=== PATIENT | male | born 1960 | race Caucasian/White ===

== ENCOUNTER → 2017-05-03 | Day surgery (SDC) | payer OTHER ==
[2017-04-27 11:39] VITALS: BMI 23.0
[~2017-05-03] VITALS: Ht 157.5 cm; Wt 58.6 kg
[~2017-05-03] MED LIST: ACET-1311 PO; CARB1SOL8 OT; CHOL1CAP57 PEG; CLOTCRE TOP; CLR10 PEG; DEXT1SYP PEG; ENTE0.5T PEG; ESCI10TA17 PEG; FAMO10TA10 PEG; FLUD0.1T10 PEG; GENT0.1C2 TOP; GENT0.3S6 OPB; IMD/2 PO; LAMO150T32 PEG; LAMO25TA PEG; LEVO75TA5 PEG; MOML PO; OLAN-111 PEG; POLY335019 PO; SENN8.6T7 PEG; WHEAPOW13 PEG; [UNRECOGNIZED DRUG - CODE] PEG
[2017-05-03 13:35] VITALS: Ht 157.5 cm; Wt 58.6 kg
[2017-05-03 13:40] VITALS: BP 99/62; PULSE 58; TEMP 36.8; O2SAT 100
--- NOTE | 2017-05-03 13:54 | Progress Note ---
Progress Note Date of Service May 03, 2017. Progress Note Pt presented for a PEG tube change. Pt has a 20 Fr 2.5 cm balloon Kevyn PEG. Hospital currently out of stock. PEG is working well, will reschedule PEG change.
== END | disposition home or self-care (01) ==
LOC: C.GI 12:44
PROVIDERS: ATTEND Internal Medicine Gastroenterology
DX: Z43.1 Encounter for attention to gastrostomy (principal)

== ENCOUNTER → 2017-05-19 | Day surgery (SDC) | payer OTHER ==
[2017-05-13 11:21] VITALS: BMI 23.0
[~2017-05-19] VITALS: Ht 157.5 cm; Wt 58.6 kg
[2017-05-19 09:04] VITALS: Ht 157.5 cm; Wt 58.6 kg
--- NOTE | 2017-05-19 09:33 | Endo History and Physical ---
History & Physical Date of Service: May 19, 2017. Chief Complaint: PEG TUBE REPLACEMENT REGULAR Q 6 MONTHES Referring Physician: DR. MCKEON / Eric History of Present Illness dysphagia for G tube change Past Medical History Other Psy. Disorders, Osteoporosis, Fractures, Gastrointestinal Disorder, Anxiety, Reflux, Sleep Apnea, Other, Depression Past Surgical History Hx Cardiac Surgery: No Hx Internal Defibrillator: No Hx Pacemaker: No Hx Abdominal Surgery: Yes (PEG TUBE INSERTION 2013 WITH EXCHANGE) Hx of Implantable Prosthesis: No Hx Post-Op Nausea and Vomiting: No Hx Cancer Surgery: No Hx Thoracic Surgery: No Hx Orthopedic: Yes (LEFT ELBOW PIN; ORIF LEFT FEMUR) Hx Urinary Tract Surgery: No Family History None Social History Smoking Status: Unknown if Ever Smoked Hx Substance Use: No Hx Alcohol Use: No Allergies Coded Allergies: No Known Allergies (Verified , 05/03/17) Current Medications Reported Home Medications Medications Dose Route/Sig Max Daily Dose Days Date Category Dose Instructions Miralax (Polyethylene Glycol 3350) 1 Pow Pow 17 Gm PO DAILY PRN 04/27/17 Reported Robitussin Peak Cold Dm (Dextromethorphan-Guaifenesin) 1 Syp Syp 10 Ml PEG UD 04/27/17 Reported Imodium (Loperamide HCl) 2 Mg Cap 2 Mg PO UD 04/27/17 Reported Tylenol (Acetaminophen) 325 Mg Tab 650 Mg PO QID PRN 04/27/17 Reported Milk Of Magnesia (Magnesium Hydroxide) 30 Ml Susp 30 Ml PO UD 04/27/17 Reported Gentamicin 0.3% Oph (Gentamicin Sulfate (Ophth)) 0.3 % Vivi 1 Drop OPB UD 04/27/17 Reported Lotrisone (Clotrimazole W/ Betamethasone) 1 Cre Cre 1 Appln TOP AMPM 04/27/17 Reported Gentamicin Sulfate (Gentamicin Sulfate (Topical)) 0.1 % Cre 1 Appln TOP QAM 02/25/16 Reported Claritin (Loratadine) 10 Mg Tab 10 Mg PEG QAM 02/25/16 Reported Lamictal (Lamotrigine) 150 Mg Tab 150 Mg PEG HS 02/25/16 Reported Benefiber (Wheat Dextrin) 1 Pow Pow 2 Tsp PEG BID 02/25/16 Reported Levothyroxine Sodium 75 Mcg Tab 1 Tab PEG QAM 90 02/25/16 Reported Lamictal (Lamotrigine) 25 Mg Tab 50 Mg PEG QAM 01/27/16 Reported Pepcid Ac (Famotidine) 10 Mg Tab 10 Mg PEG BID 01/27/16 Reported Osmolite 1.2 Jamie (Nutritional Supplements) 1 Liq Liq 1.5 Can PEG 6XD 07/22/14 Reported Vitamin D3 (Cholecalciferol) 1,000 Unit Cap 1,000 Inter.unit PEG QAM 07/22/14 Reported Zyprexa (Olanzapine) 5 Mg Tab 5 Mg PEG HS 07/22/14 Reported Senokot S (Sennosides-Docusate Sodium) 1 Tab Tab 2 Tabs PEG HS 02/18/14 Reported Florinef (Fludrocortisone Acetate) 0.1 Mg Tab 0.1 Mg PEG QAM 02/18/14 Reported CRUSH ALL MEDS. Baraclude (Entecavir) 0.5 Mg Tab 0.5 Mg PEG QAM 06/30/13 Reported TAKE THIS MEDICATION ON AN EMPTY STOMACH. Lexapro (Escitalopram Oxalate) 10 Mg Tab 10 Mg PEG QAM 02/16/09 Reported CRUSH ALL MEDS Vital Signs Weight (Kilograms): 58.64 Height (Feet): 5 Height (Inches): 2 Date Time Temp Pulse Resp B/P (MAP) Pulse Ox O2 Delivery O2 Flow Rate FiO2 05/19/17 09:06 36.9 58 20 94/59 (71) 100 Room Air Physical Exam General Appearance: no apparent distress Respiratory/Chest: Auscultation: breath sounds normal Cardiovascular: Heart Auscultation: RRR Abdomen: Inspection & Palpation: soft Liver: non-tender Assessment and Plan stable for G tube change
[2017-05-19 09:51] VITALS: BP 102/73; PULSE 58; TEMP 36.8; O2SAT 99
--- NOTE | 2017-05-19 09:52 | Discharge Instructions ---
Endoscopy Patient Instructions Date / Procedure(s) Performed May 19, 2017. Other Allergy Information Coded Allergies: No Known Allergies (Verified , 05/03/17) Discharge Date / Findings May 19, 2017. Successful G tube change Medication Instructions Stopped Medication(s): AM MEDS AT 615 Provider Instructions Activity Restrictions - No exercising or heavy lifting for 24 hours. - Do not drink alcohol the day of the procedure. - Do not drive a car or operate machinery until the day after the procedure. - Do not make any important decisions or sign important papers in 24 hours after the procedure. Following Day: - Return to full activity which may include returning to work/school. Diet Start your diet with liquids and light foods (jello, soup, juice, toast). Then eat your usual diet if not nauseated. Treatment For Common After Affects For mild abdominal pain, bloating, or excessive gas: - Rest - Eat lightly - Lie on right side Follow-Up Information Follow-up with DR. GOMEZ as scheduled Anesthesia Information What You Should Know You have had a procedure that required some medicine to reduce anxiety and discomfort. This treatment is called moderate sedation. After receiving the treatment, you may be sleepy, but you will be able to breathe on your own. The effects of the treatment may last for several hours. Follow these instructions along with Activity/Diet recommendations noted above: * Do NOT do anything where dizziness or clumsiness would be dangerous. * Rest quietly at home today, then you can be up and about tomorrow. * Have a responsible person stay with you the rest of today. * You may have had an I.V. today. If so, you may take the dressing off later today. Recommendations Call your doctor if: * Trouble breathing * Continuous vomiting for more than 24 hours * Temperature above 101 degrees * Severe abdominal pain or bloating * Pain not relieved by pain medicine ordered * There is increased drainage or redness from any incision * A large amount of rectal bleeding greater than 2-3 tablespoons. (If you had a polyp/s removed or have hemorrhoids, a small amount of blood - from the rectum is to be expected.) * You have any unanswered questions or concerns. IN THE EVENT OF A SERIOUS EMERGENCY, GO TO THE NEAREST EMERGENCY ROOM Your discharge instructions were prepared by provider Guido Carrasco. Patient Instructions Signature Page Pedro Taylor Patient (or Guardian) Signature/Date: I have read and understand the instructions given to me by my caregivers. Caregiver/RN/Doctor Signature/Date: The above-named patient and/or guardian has received patient instructions on this date. + Original Patient Signature Page (only) stays with chart. Please make copy for patient.
--- NOTE | 2017-05-19 10:03 | GI REPORT ---
Procedure Date: 05/19/2017 9:58 AM Procedure: Non-endoscopic Tube Procedure Indications: Routine exchange PEG tube Medicines: None Complications: No immediate complications. Estimated Blood Loss: Estimated blood loss: none. Procedure: Pre-Anesthesia Assessment: - Prior to the procedure, a History and Physical was performed, and patient medications, allergies and sensitivities were reviewed. The patient's tolerance of previous anesthesia was reviewed. - The risks and benefits of the procedure and the sedation options and risks were discussed with the patient. All questions were answered and informed consent was obtained. - Patient identification and proposed procedure were verified prior to the procedure by the physician and the nurse. The procedure was verified in the pre-procedure area. - Pre-procedure physical examination revealed no contraindications to sedation. - After reviewing the risks and benefits, the patient was deemed in satisfactory condition to undergo the procedure. After obtaining informed consent, the site was prepped and the procedure was performed. The procedure was accomplished without difficulty. The patient tolerated the procedure well. Findings: Upon external examination, normal-appearing skin was found surrounding the stomal opening. The gastrostomy tube was patent. The gastrostomy tube had been in place for an extended length of time and required removal. The existing PEG site was cleaned. The existing PEG balloon was deflated and by using traction, removal was easily accomplished. A 20 Fr MARIEL-HODGES low-profile gastrostomy tube was lubricated and placed into the existing gastrostomy port. A total of 5 mL saline was used to distend the balloon that was previously tested. When positioned, the skin marking was noted to be 2.5 cm at the external bumper. The final tension and compression of the abdominal wall by the gastrostomy tube and external bumper were checked and revealed that the bumper was loose and lightly touching the skin. Placement into the stomach was confirmed with flushing, aspiration and auscultation. The tube was capped, and the tube site was cleaned and dressed. Impression: - The gastrostomy tube had been in place for an extended length of time and was removed and replaced with a 20 Fr / 2.5 cm MARIEL-HODGES low-profile gastrostomy tube. - No specimens collected. Recommendation: - Repeat the tube procedure in 6 months to exchange the enteral tube. - Discharge patient to home. Guido Carrasco M.D. Guido Carrasco MD 05/19/2017 10:03:31 AM This report has been signed electronically. Note Initiated On: 05/19/2017 9:58 AM I attest to the content of the Intraoperative Record and orders documented therein, exceptions below
== END | disposition home or self-care (01) ==
LOC: C.GI 08:40
PROVIDERS: ATTEND Internal Medicine Gastroenterology
DX: R13.10 Dysphagia, unspecified (principal); M81.0 Age-related osteoporosis without current pathological fracture; K21.9 Gastro-esophageal reflux disease without esophagitis; G47.30 Sleep apnea, unspecified; F32.9 Major depressive disorder, single episode, unspecified

== ENCOUNTER → 2017-11-30 | Day surgery (SDC) | payer OTHER ==
[2017-11-23 14:03] VITALS: BMI 24.0
[~2017-11-30] VITALS: Ht 157.5 cm; Wt 61.4 kg
[~2017-11-30] MED LIST changes: -ACET-1311 PO; +BISA10SU7 PR; -FAMO10TA10 PEG; +FAMO10TA16 PEG; +LAMO150T PEG; -LAMO150T32 PEG; -MOML PO
[2017-11-30 11:34] VITALS: Ht 157.5 cm; Wt 61.4 kg
--- NOTE | 2017-11-30 11:58 | Endo History and Physical ---
History & Physical Date of Service: Nov 30, 2017. Chief Complaint: Dysphagia Referring Physician: History of Present Illness PEG tube Past Medical History Other Psy. Disorders, Osteoporosis, Fractures, Gastrointestinal Disorder, Anxiety, Reflux, Sleep Apnea, Other, Depression Past Surgical History Hx Cardiac Surgery: No Hx Internal Defibrillator: No Hx Pacemaker: No Hx Abdominal Surgery: Yes (PEG TUBE INSERTION 2013 WITH EXCHANGE) Hx of Implantable Prosthesis: No Hx Post-Op Nausea and Vomiting: No Hx Cancer Surgery: No Hx Thoracic Surgery: No Hx Orthopedic: Yes (LEFT ELBOW PIN; ORIF LEFT FEMUR) Hx Urinary Tract Surgery: No Family History None Social History Smoking Status: Unknown if Ever Smoked Hx Substance Use: No Hx Alcohol Use: No Allergies Coded Allergies: No Known Allergies (Verified , 11/30/17) Current Medications Reported Home Medications Medications Dose Route/Sig Max Daily Dose Days Date Category Dose Instructions Bisac-Evac (Bisacodyl) 10 Mg Sup 1 Dose MT DIRECTED PRN 11/23/17 Reported Debrox (Carbamide Peroxide (Otic)) 6.5 % Vivi 1 Dose OT DIRECTED PRN 11/23/17 Reported Baraclude (Entecavir) 0.5 Mg Tab 1 Tab PEG QAM 11/23/17 Reported Miralax (Polyethylene Glycol 3350) 1 Pow Pow 17 Gm PO DAILY PRN 04/27/17 Reported Robitussin Peak Cold Dm (Dextromethorphan-Guaifenesin) 1 Syp Syp 10 Ml PEG UD 04/27/17 Reported Imodium (Loperamide HCl) 2 Mg Cap 2 Mg PO UD 04/27/17 Reported Gentamicin 0.3% Oph (Gentamicin Sulfate (Ophth)) 0.3 % Vivi 1 Drop OPB UD PRN 04/27/17 Reported Lotrisone (Clotrimazole W/ Betamethasone) 1 Cre Cre 1 Appln TOP AMPM PRN 04/27/17 Reported Gentamicin Sulfate (Gentamicin Sulfate (Topical)) 0.1 % Cre 1 Appln TOP QAM PRN 02/25/16 Reported Claritin (Loratadine) 10 Mg Tab 10 Mg PEG QAM 02/25/16 Reported Lamictal (Lamotrigine) 150 Mg Tab 150 Mg PEG HS 02/25/16 Reported Benefiber (Wheat Dextrin) 1 Pow Pow 1 Tsp PEG BID 02/25/16 Reported Levothyroxine Sodium 75 Mcg Tab 1 Tab PEG QAM 90 02/25/16 Reported Lamictal (Lamotrigine) 25 Mg Tab 50 Mg PEG QAM 01/27/16 Reported Pepcid Ac (Famotidine) 10 Mg Tab 10 Mg PEG BID 01/27/16 Reported Osmolite 1.2 Jamie (Nutritional Supplements) 1 Liq Liq 5 Can PEG DAILY 07/22/14 Reported FLUSH WITH 100MLS OF WATER BEFORE AND AFTER SUPPLEMENT. Vitamin D3 (Cholecalciferol) 1,000 Unit Cap 1,000 Inter.unit PEG QAM 07/22/14 Reported Zyprexa (Olanzapine) 5 Mg Tab 5 Mg PEG HS 07/22/14 Reported Senokot S (Sennosides-Docusate Sodium) 1 Tab Tab 2 Tabs PEG HS 02/18/14 Reported Florinef (Fludrocortisone Acetate) 0.1 Mg Tab 0.1 Mg PEG QAM 02/18/14 Reported CRUSH ALL MEDS. Lexapro (Escitalopram Oxalate) 10 Mg Tab 10 Mg PEG QAM 02/16/09 Reported CRUSH ALL MEDS Vital Signs Weight (Kilograms): 61.36 Height (Feet): 5 Height (Inches): 2 Physical Exam General Appearance: no apparent distress Respiratory/Chest: Auscultation: breath sounds normal Cardiovascular: Heart Auscultation: RRR Abdomen: Inspection & Palpation: soft Assessment and Plan Dysphagia - PEG tube change
--- NOTE | 2017-11-30 12:50 | Discharge Instructions ---
Endoscopy Patient Instructions Date / Procedure(s) Performed Nov 30, 2017. Other Allergy Information Coded Allergies: No Known Allergies (Verified , 11/30/17) Discharge Date / Findings Nov 30, 2017. PEG tube change - 2.5 cm 20 Fr MARIEL-lyn tube placed without difficulty Provider Instructions Activity Restrictions - No exercising or heavy lifting for 24 hours. - Do not drink alcohol the day of the procedure. - Do not drive a car or operate machinery until the day after the procedure. - Do not make any important decisions or sign important papers in 24 hours after the procedure. Following Day: - Return to full activity which may include returning to work/school. Diet Start your diet with liquids and light foods (jello, soup, juice, toast). Then eat your usual diet if not nauseated. Treatment For Common After Affects For mild abdominal pain, bloating, or excessive gas: - Rest - Eat lightly - Lie on right side Follow-Up Information Follow-up with DR. GOMEZ as scheduled Anesthesia Information What You Should Know You have had a procedure that required some medicine to reduce anxiety and discomfort. This treatment is called moderate sedation. After receiving the treatment, you may be sleepy, but you will be able to breathe on your own. The effects of the treatment may last for several hours. Follow these instructions along with Activity/Diet recommendations noted above: * Do NOT do anything where dizziness or clumsiness would be dangerous. * Rest quietly at home today, then you can be up and about tomorrow. * Have a responsible person stay with you the rest of today. * You may have had an I.V. today. If so, you may take the dressing off later today. Recommendations Call your doctor if: * Trouble breathing * Continuous vomiting for more than 24 hours * Temperature above 101 degrees * Severe abdominal pain or bloating * Pain not relieved by pain medicine ordered * There is increased drainage or redness from any incision * A large amount of rectal bleeding greater than 2-3 tablespoons. (If you had a polyp/s removed or have hemorrhoids, a small amount of blood - from the rectum is to be expected.) * You have any unanswered questions or concerns. IN THE EVENT OF A SERIOUS EMERGENCY, GO TO THE NEAREST EMERGENCY ROOM Your discharge instructions were prepared by provider Logan Robbins. Patient Instructions Signature Page Pedro Taylor Patient (or Guardian) Signature/Date: I have read and understand the instructions given to me by my caregivers. Caregiver/RN/Doctor Signature/Date: The above-named patient and/or guardian has received patient instructions on this date. + Original Patient Signature Page (only) stays with chart. Please make copy for patient.
[2017-11-30 13:05] VITALS: BP 98/79; PULSE 62; O2SAT 98
--- NOTE | 2017-12-01 11:32 | GI REPORT ---
Patient Name: Pedro Taylor Procedure Date: 11/30/2017 1:56 PM Date of : 1960 Admit Type: Outpatient Age: 57 Gender: Male Attending MD: Logan Reyes MD Procedure: Non-endoscopic Tube Procedure Providers: Logan Reyes MD Referring MD: Logan Reyes MD Indications: Replace PEG tube Medicines: None Complications: No immediate complications. Estimated Blood Loss: Estimated blood loss: none. Procedure: Pre-Anesthesia Assessment: - ASA Grade Assessment: III - A patient with severe systemic disease. After obtaining informed consent, the site was prepped and the procedure was performed.The procedure was accomplished without difficulty. The patient tolerated the procedure well. Findings: Upon external examination, normal-appearing skin was found surrounding the stomal opening. The existing gastrostomy site was examined and cleaned. A 20 Fr MARIEL-HODGES 2.5 cm low-profile gastrostomy tube was lubricated and placed into the existing gastrostomy port. A total of 5 mL sterile water was used to distend the balloon that was previously tested. The final tension and compression of the abdominal wall by the gastrostomy tube and external bumper were checked and revealed that the bumper was loose and lightly touching the skin. Placement into the stomach was confirmed with flushing, aspiration and auscultation. The tube was capped, and the tube site was cleaned and dressed. Impression: - The previously removed gastrostomy tube was replaced with a 20 Fr MARIEL-HODGES low-profile gastrostomy tube. - No specimens collected. Recommendation: - Discharge patient to home. Jesse Martinez MD 12/01/2017 11:31:58 AM This report has been signed electronically. Note Initiated On: 11/30/2017 1:56 PM Number of Addenda: 0 I attest to the content of the Intraoperative Record and orders documented therein, exceptions below {[id number]}
== END | disposition home or self-care (01) ==
LOC: C.GI 10:51
PROVIDERS: ATTEND Internal Medicine Gastroenterology
DX: Z46.59 Encounter for fitting and adjustment of other gastrointestinal appliance and device (principal); R13.10 Dysphagia, unspecified

== ENCOUNTER 2022-05-25 13:47 | Inpatient (IN) ==
--- NOTE | 2022-05-25 14:07 | Emergency Department Note ---
Impression & Plan Acute dyspnea, Acute respiratory failure with hypoxia, Pneumonia ED Provider Note HISTORY OF PRESENT ILLNESS: Patient is a 62-year-old male presenting with shortness of breath, hypoxia and cough. Patient is nonverbal, so history is obtained via EMS report. Patient reportedly has had pneumonia for the last month and a half. He has been treated on multiple outpatient regimens without any improvement in his symptoms. He was reportedly at his primary care provider's office today for follow-up when his saturations were noted to be in the low 80s on room air. EMS was called and the patient was started on 10 L nonrebreather. ROS: Patient is nonverbal and is unable to provide accurate information regarding ROS, histories, meds, or allergies. Any information regarding ROS, Past medical or surgical history, social or family history documented below has been obtained from the EMR. Any additional history regarding this cannot be obtained present ly due to his medical condition. PHYSICAL EXAM: Constitutional: Patient appears in no acute distress. HENT: Head: Normocephalic and atraumatic. Eyes: EOMI, PERRL Mouth/Throat: Mucous membranes moist. Neck: Trachea midline. Neck supple. Cardiovascular: RRR, No murmurs, rubs or gallops. Intact distal pulses. Pulmonary/Chest: On 10L non-rebreather. Coarse breath sounds in bilateral lung summers. Abdominal: BS +. Abdomen soft, no tenderness, rebound or guarding. Back: No midline spinal tenderness, no paraspinal tenderness, no CVA tend erness. Musculoskeletal: No edema, tenderness or deformity noted. Skin: Warm and dry. No rash, erythema, pallor or cyanosis Psychiatric: Appropriate mood and affect for situation. Neurological: Alert. CN II-XII grossly intact, moving all extremities equally and fully. MDM: - Vitals signs showed tachypnea. - EKG negative for acute ischemic changes. - CXR showed left basilar consolidation concerning for pneumonia. Also noted to have mild opacities in right lung base concerning for pneumonia vs atelectasis. - Blood cultures obtained. - Vancomycin and cefepime ordered for antibiotic coverage. - Laboratory workup showed normal WBC; hypermagnesemia (Mg 2.5) - UA negative for infection. - Hospitalist consulted for admission. - Patient admitted to inpatient hospitalist service for further evaluation and management. ASSESSMENT AND PLAN: Diagnosis: shortness of breath; pneumonia; acute hypoxic respiratory failure Plan: admit Past Med/Surg History Medical History (Updated 05/25/22 @ 17:00 by Holli Alva MD) Aspiration pneumonia Cataract MLD CATARACT IN BOTH EYES Down's syndrome Dysphagia PEG TUBE GERD (gastroesophageal reflux disease) Hepatitis B CARRIER Hyperlipidemia Hypothyroidism Impacted cerumen of both ears Leukopenia Pica Schizophrenia Sleep apnea Stroke CVA DX DECEMBER 2000 AFTER SYNCOPAL EPISODE Surgical History History of colonoscopy 2006 History of elbow surgery PIN IN LEFT ELBOW History of tooth extraction Status post insertion of percutaneous endoscopic gastrostomy (PEG) tube INSERTED 2013, CHANGED 2015 Social History Smoking Status: Unknown if ever smoked Preferred Language: Yakut Communication Ability: Impaired Seal Extrusion Operator Required: No Beliefs That Will Affect Care: None Current Living Situation: Personal Care Facility Current Living Situation Comment: [facility] IN [place], [place] Feels Safe at Home: Yes Allergies Allergies Allergy/AdvReac Type Severity Reaction Status Date / Time SEASONAL ALLERGIES AdvReac Mild Sneezing Uncoded 11/22/18 09:51 Home Meds Home Medications Medication Instructions Recorded Confirmed carbamide peroxide 6.5 % ear drops 5 drp otic (ear) WK 05/31/18 11/24/18 (Debrox) cholecalciferol (vitamin D3) 25 1,000 unit feeding tube QAM 05/31/18 11/24/18 mcg (1,000 unit) tablet (Vitamin D3) ciclopirox 0.77 % topical cream 1 applic topical DAILY 05/31/18 11/24/18 entecavir 0.5 mg tablet 0.5 mg PO QAM 05/31/18 11/24/18 escitalopram oxalate 10 mg tablet 10 mg feeding tube QAM 05/31/18 11/24/18 famotidine 10 mg tablet 10 mg feeding tube QAM 05/31/18 11/24/18 lamotrigine 150 mg tablet 150 mg PO HS 05/31/18 11/24/18 lamotrigine 25 mg tablet 2 tab PO QAM 05/31/18 11/22/18 levothyroxine 75 mcg capsule 75 mcg feeding tube QAM 05/31/18 11/22/18 loratadine 10 mg capsule 10 mg feeding tube QAM 05/31/18 11/22/18 olanzapine 5 mg tablet 5 mg feeding tube HS 05/31/18 11/22/18 polyethylene glycol 3350 17 gram 17 g feeding tube Q2D 05/31/18 11/22/18 oral powder packet (Gavilax) sennosides 8.6 mg tablet (Senna 2 tab feeding tube HS 05/31/18 11/22/18 Lax) wheat dextrin 5 gram/7.4 gram oral 1 tsp PO BID 05/31/18 11/24/18 powder (Benefiber Healthy Shape) nutritional supplements 0.06 5 can feeding tube DAILY 11/22/18 11/22/18 gram-1.2 kcal/mL oral liquid (Osmolite 1.2 Jamie) Results & Data (ED) Vital Signs Vital Signs - 24 hr 05/25/22 14:28 05/25/22 14:28 05/25/22 13:38 Pulse Rate 66 Pulse Rate [Apical] Respiratory Rate 22 Respiratory Effort / Characteristics Nasal Congestion Blood Pressure Blood Pressure [Right Arm] Blood Pressure Mean Blood Pressure Mean [Right Arm] Pulse Oximetry 100 100 Oxygen Delivery Method Aerosol Mask Room Air Aerosol Mask Oxygen Flow Rate 10 10 10 Sepsis Recent Fever Within 48 Hours Sepsis New/Unexplained Change in Mental Status Sepsis Action Taken by Nursing 05/25/22 13:38 05/25/22 15:45 Pulse Rate 68 Pulse Rate [Apical] 68 Respiratory Rate 20 22 Respiratory Effort / Characteristics Blood Pressure 111/82 Blood Pressure [Right Arm] 108/70 Blood Pressure Mean 91 Blood Pressure Mean [Right Arm] 82 Pulse Oximetry 100 100 Oxygen Delivery Method Aerosol Mask Aerosol Mask Oxygen Flow Rate 10 10 Sepsis Recent Fever Within 48 Hours No Sepsis New/Unexplained Change in Mental Status No Sepsis Action Taken by Nursing No Action Required Laboratory Data Result diagrams: 05/25/22 13:50 05/25/22 13:50 Lab Results 05/25/22 05/25/22 05/25/22 Range/Units 13:50 13:50 13:50 WBC 8.67 (4.8-10.8) K/ul RBC 3.47 L (4.63-6.08) M/uL Hgb 11.6 L (14.0-18.0) g/dl Hct 34.5 L (40.1-51.0) % MCV 99.4 (80.0-100.0) fL MCH 33.4 (25.0-34.0) pg MCHC 33.6 (32.0-36.0) g/dL RDW Std Deviation 44.8 (36.4-46.3) fL RDW Coeff of Tina 12.4 (11.5-14.5) % Plt Count 184 (130-400) K/uL MPV 10.3 (9.4-12.4) fL Immature Gran % (Auto) 0.6 % Neut % (Auto) 60.2 % Lymph % (Auto) 27.5 % [place] % (Auto) 9.0 % Eos % (Auto) 2.0 % Baso % (Auto) 0.7 % Neut # (Auto) 5.23 (1.4-6.5) K/uL Lymph # (Auto) 2.38 (1.2-3.4) K/uL [place] # (Auto) 0.78 (0.24-0.82) K/uL Eos # (Auto) 0.17 (0-0.50) K/uL Baso # (Auto) 0.06 (0-0.2) K/uL Immature Gran # (Auto) 0.05 H (0.00-0.02) K/uL PT Cancelled INR Cancelled ABG pH (7.35-7.45) ABG pCO2 (35-46) mmHg ABG pO2 (80-95) mmHg ABG HCO3 (19-24) mmol/L ABG O2 Saturation (90-95) % ABG Base Excess (-9-1.8) mEq/L Humberto Test (Pos) Oxygen Given Sodium 131 L (136-145) mmol/L Potassium 4.5 (3.5-5.1) mmol/L Chloride 98 (98-107) mmol/L Carbon Dioxide 26 (21-32) mmol/L Anion Gap 7 (3-11) BUN 22 (6-23) mg/dl Creatinine 1.09 (0.6-1.4) mg/dl Est Cr Clr Drug Dosing Not Reportable Est GFR ( Amer) 83.9 ml/min Est GFR (Non-Af Amer) 72.4 ml/min BUN/Creatinine Ratio 20.2 H (10-20) Glucose 86 (70-99(Fasting)) mg/dl Calcium 8.7 (8.5-10.1) mg/dl Magnesium 2.5 H (1.7-2.4) mg/dl Total Bilirubin 0.3 (0.2-1.0) mg/dl AST 29 (13-39) U/L ALT 13 (7-52) U/L Alkaline Phosphatase 97 (34-104) U/L Troponin I High Sens 5.2 (0-20) pg/ml Total Protein 7.3 (6.0-8.3) gm/dl Albumin 3.4 (3.4-5.0) gm/dl Globulin 3.9 (2.5-4.0) gm/dl Albumin/Globulin Ratio 0.9 (0.9-2) Procalcitonin (0-0.5) ng/ml Urine Color Urine Appearance (Clear) Urine pH (4.5-7.5) Ur Specific [place] (1.000-1.030) Urine Protein (Negative) Urine Glucose (UA) (Negative) Urine Ketones (Negative) Urine Blood (Negative) Urine Nitrite (Negative) Urine Bilirubin (Negative) Urine Urobilinogen (Negative) Ur Leukocyte Esterase (Negative) Nasal Screen MRSA (PCR) (Negative) SARS-CoV-2 (PCR) (Negative) Influenza Type A (PCR) (Neg) Influenza Type B (PCR) (Neg) RSV (RT-PCR) (Neg) 05/25/22 05/25/22 05/25/22 Range/Units 13:50 14:42 14:42 WBC (4.8-10.8) K/ul RBC (4.63-6.08) M/uL Hgb (14.0-18.0) g/dl Hct (40.1-51.0) % MCV (80.0-100.0) fL MCH (25.0-34.0) pg MCHC (32.0-36.0) g/dL RDW Std Deviation (36.4-46.3) fL RDW Coeff of Tina (11.5-14.5) % Plt Count (130-400) K/uL MPV (9.4-12.4) fL Immature Gran % (Auto) % Neut % (Auto) % Lymph % (Auto) % [place] % (Auto) % Eos % (Auto) % Baso % (Auto) % Neut # (Auto) (1.4-6.5) K/uL Lymph # (Auto) (1.2-3.4) K/uL [place] # (Auto) (0.24-0.82) K/uL Eos # (Auto) (0-0.50) K/uL Baso # (Auto) (0-0.2) K/uL Immature Gran # (Auto) (0.00-0.02) K/uL PT INR ABG pH (7.35-7.45) ABG pCO2 (35-46) mmHg ABG pO2 (80-95) mmHg ABG HCO3 (19-24) mmol/L ABG O2 Saturation (90-95) % ABG Base Excess (-9-1.8) mEq/L Humberto Test (Pos) Oxygen Given Sodium (136-145) mmol/L Potassium (3.5-5.1) mmol/L Chloride (98-107) mmol/L Carbon Dioxide (21-32) mmol/L Anion Gap (3-11) BUN (6-23) mg/dl Creatinine (0.6-1.4) mg/dl Est Cr Clr Drug Dosing Est GFR ( Amer) ml/min Est GFR (Non-Af Amer) ml/min BUN/Creatinine Ratio (10-20) Glucose (70-99(Fasting)) mg/dl Calcium (8.5-10.1) mg/dl Magnesium (1.7-2.4) mg/dl Total Bilirubin (0.2-1.0) mg/dl AST (13-39) U/L ALT (7-52) U/L Alkaline Phosphatase (34-104) U/L Troponin I High Sens (0-20) pg/ml Total Protein (6.0-8.3) gm/dl Albumin (3.4-5.0) gm/dl Globulin (2.5-4.0) gm/dl Albumin/Globulin Ratio (0.9-2) Procalcitonin < 0.05 (0-0.5) ng/ml Urine Color Urine Appearance (Clear) Urine pH (4.5-7.5) Ur Specific [place] (1.000-1.030) Urine Protein (Negative) Urine Glucose (UA) (Negative) Urine Ketones (Negative) Urine Blood (Negative) Urine Nitrite (Negative) Urine Bilirubin (Negative) Urine Urobilinogen (Negative) Ur Leukocyte Esterase (Negative) Nasal Screen MRSA (PCR) Negative (Negative) SARS-CoV-2 (PCR) NEGATIVE (Negative) Influenza Type A (PCR) Negative (Neg) Influenza Type B (PCR) Negative (Neg) RSV (RT-PCR) Negative (Neg) 05/25/22 05/25/22 05/25/22 Range/Units 14:50 14:50 15:50 WBC (4.8-10.8) K/ul RBC (4.63-6.08) M/uL Hgb (14.0-18.0) g/dl Hct (40.1-51.0) % MCV (80.0-100.0) fL MCH (25.0-34.0) pg MCHC (32.0-36.0) g/dL RDW Std Deviation (36.4-46.3) fL RDW Coeff of Tina (11.5-14.5) % Plt Count (130-400) K/uL MPV (9.4-12.4) fL Immature Gran % (Auto) % Neut % (Auto) % Lymph % (Auto) % [place] % (Auto) % Eos % (Auto) % Baso % (Auto) % Neut # (Auto) (1.4-6.5) K/uL Lymph # (Auto) (1.2-3.4) K/uL [place] # (Auto) (0.24-0.82) K/uL Eos # (Auto) (0-0.50) K/uL Baso # (Auto) (0-0.2) K/uL Immature Gran # (Auto) (0.00-0.02) K/uL PT 10.5 INR 1.0 ABG pH 7.47 H (7.35-7.45) ABG pCO2 38 (35-46) mmHg ABG pO2 184 H (80-95) mmHg ABG HCO3 28 H (19-24) mmol/L ABG O2 Saturation > 100.0 H (90-95) % ABG Base Excess 3.9 H (-9-1.8) mEq/L Humberto Test Pos (Pos) Oxygen Given 10L Sodium (136-145) mmol/L Potassium (3.5-5.1) mmol/L Chloride (98-107) mmol/L Carbon Dioxide (21-32) mmol/L Anion Gap (3-11) BUN (6-23) mg/dl Creatinine (0.6-1.4) mg/dl Est Cr Clr Drug Dosing Est GFR ( Amer) ml/min Est GFR (Non-Af Amer) ml/min BUN/Creatinine Ratio (10-20) Glucose (70-99(Fasting)) mg/dl Calcium (8.5-10.1) mg/dl Magnesium (1.7-2.4) mg/dl Total Bilirubin (0.2-1.0) mg/dl AST (13-39) U/L ALT (7-52) U/L Alkaline Phosphatase (34-104) U/L Troponin I High Sens (0-20) pg/ml Total Protein (6.0-8.3) gm/dl Albumin (3.4-5.0) gm/dl Globulin (2.5-4.0) gm/dl Albumin/Globulin Ratio (0.9-2) Procalcitonin (0-0.5) ng/ml Urine Color Yellow Urine Appearance Clear (Clear) Urine pH 8.0 H (4.5-7.5) Ur Specific [place] 1.007 (1.000-1.030) Urine Protein Negative (Negative) Urine Glucose (UA) Negative (Negative) Urine Ketones Negative (Negative) Urine Blood Negative (Negative) Urine Nitrite Negative (Negative) Urine Bilirubin Negative (Negative) Urine Urobilinogen Negative (Negative) Ur Leukocyte Esterase Negative (Negative) Nasal Screen MRSA (PCR) (Negative) SARS-CoV-2 (PCR) (Negative) Influenza Type A (PCR) (Neg) Influenza Type B (PCR) (Neg) RSV (RT-PCR) (Neg) Administered Medications Vancomycin HCl 1,500 mg/ (Sodium Chloride) 530 mls @ 200 mls/hr IV NOW ONE Stop: 05/25/22 18:08 Last Admin: 05/25/22 15:58 Dose: 200 mls/hr Documented By: QGV Discontinued Medications Cefepime HCl (Maxipime) 20 mls @ 5 mls/min IV NOW ONE Stop: 05/25/22 14:48 Last Admin: 05/25/22 15:13 Dose: 5 mls/min Documented By: QGV Imaging Data Radiologist's Impression: Chest X-Ray 05/25/22 14:02 SINGLE VIEW CHEST CLINICAL HISTORY: Dyspnea FINDINGS: An AP, portable, upright chest radiograph is compared to study dated 02/26/2014. The cardiomediastinal silhouette is unremarkable. Airspace consolidation is seen at the left lung base. No large pleural effusion is identified. Mild opacities are seen in the right lung base. No pneumothorax is seen. The skeletal structures are osteopenic. The bony thorax is grossly intact. A gastrostomy tube is noted in the upper abdomen. IMPRESSION: 1. There is left basilar consolidation. Correlate clinically for evidence of pneumonia/aspiration pneumonitis. Radiographic follow-up to resolution is recommended. 2. Mild opacities are also seen in the right lung base. This could represent atelectasis versus pneumonia. ACT 112: Negative or not required by law. Electronically signed by: Matthew Luque M.D. 05/25/2022 2:29 PM Discharge Plan Visit Data Chief Complaint: Shortness of Breath/Dyspnea ED Provider: Holli Alva Discharge Problem: Acute dyspnea, Acute respiratory failure with hypoxia, Pneumonia Patient Disposition: Admitted As Inpatient Forms Stand Alone Forms: [facility] Prescriptions Prescriptions: No Action lamotrigine 150 mg Tablet 150 mg PO HS Rx Instructions: TAKES VIA PEG TUBE sennosides [Senna Lax] 8.6 mg Tablet 2 tab Feeding Tube HS famotidine 10 mg Tablet 10 mg Feeding Tube QAM polyethylene glycol 3350 [Gavilax] 17 gram Powder In Packet 17 g Feeding Tube Q2D olanzapine 5 mg Tablet 5 mg Feeding Tube HS lamotrigine 25 mg Tablet 2 tab PO QAM Rx Instructions: VIA PEG TUBE carbamide peroxide [Debrox] 6.5 % Drops 5 drp OTIC (EAR) WK ciclopirox 0.77 % Cream 1 applic TOPICAL DAILY Rx Instructions: APPLY TO FEET BILATERALLY escitalopram oxalate 10 mg Tablet 10 mg Feeding Tube QAM entecavir 0.5 mg Tablet 0.5 mg PO QAM Rx Instructions: TAKES VIA FEEDING TUBE cholecalciferol (vitamin D3) [Vitamin D3] 1,000 unit Tablet 1,000 unit Feeding Tube QAM levothyroxine 75 mcg Capsule 75 mcg Feeding Tube QAM loratadine 10 mg Capsule 10 mg Feeding Tube QAM Benefiber Healthy Shape 5 gram/7.4 gram Powder 1 tsp PO BID Rx Instructions: VIA FEEDING TUBE Osmolite 1.2 Jamie 0.06 gram-1.2 kcal/mL Liquid 5 can feeding tube DAILY Referrals Referrals: Milton Cole MD [Primary Care Provider] -
[2022-05-25 14:29] LABS: Basophils # (auto) 0.06 K/uL (0-0.2); Basophils % (auto) 0.7 %; Eosinophils # (auto) 0.17 K/uL (0-0.50); Hematocrit (blood only) 34.5 % (40.1-51.0); Hemoglobin 11.6 g/dl (14.0-18.0); Immature Granulocytes # (auto) 0.05 K/uL (0.00-0.02); Immature Granulocytes % (auto) 0.6 %; Lymphocytes # (auto) 2.38 K/uL (1.2-3.4); Lymphocytes % (auto) 27.5 %; Mean Corpuscular Hemoglobin 33.4 pg (25.0-34.0); Mean Corpuscular Hgb Conc 33.6 g/dL (32.0-36.0); Mean Corpuscular Volume 99.4 fL (80.0-100.0); Mean Platelet Volume 10.3 fL (9.4-12.4); Monocytes # (auto) 0.78 K/uL (0.24-0.82); Neutrophils # (auto) 5.23 K/uL (1.4-6.5); Neutrophils % (auto) 60.2 %; Platelet Count 184 K/uL (130-400); RDW Coefficient of Variation 12.4 % (11.5-14.5); RDW Standard Deviation 44.8 fL (36.4-46.3); Red Blood Count 3.47 M/uL (4.63-6.08); White Blood Count 8.67 K/ul (4.8-10.8)
--- NOTE | 2022-05-25 14:30 | XRay Report ---
SINGLE VIEW CHEST CLINICAL HISTORY: Dyspnea FINDINGS: An AP, portable, upright chest radiograph is compared to study dated 02/26/2014. The cardiom ediastinal silhouette is unremarkable. Airspace consolidation is seen at the left lung base. No large pleural effusion is identified. Mild opacities are seen in the right lung base. No pneumothorax is s een. The skeletal structures are osteopenic. The bony thorax is grossly intact. A gastrostomy tube is noted in the upper abdomen. IMPRESSION: 1. There is left basilar consolidation. Correlate clinically for evidence of pneumonia/aspiration pne umonitis. Radiographic follow-up to resolution is recommended. 2. Mild opacities are also seen in the right lung base. This could represent atelectasis versus pneum onia. ACT 112: Negative or not required by law. Electronically signed by: Matthew Luque M.D. 05/25/2022 2:29 PM
[2022-05-25] MEDS ORDERED: VANCOMYCIN CONSULT ACTIVE PRN (14:36)
[2022-05-25] MEDS ORDERED: VANCOMYCIN HCL 2,000 MG in SODIUM CHLORIDE 0.9% 500 ML IV ONE (14:36)
[2022-05-25 14:45] LABS: Troponin I High Sensitivity 5.2 pg/ml (0-20)
[2022-05-25] MEDS ORDERED: CEFEPIME 2,000 MG in SYRINGE 7.5 ML IV SCH (14:45)
[2022-05-25] MEDS ORDERED: CEFEPIME 20 ML IV ONE (14:45)
[2022-05-25] MEDS ORDERED: levoFLOXacin/D5W 750 MG/150 ML BAG IV SCH (14:45)
[2022-05-25] MEDS ORDERED: Patient's HEIGHT &/or WEIGHT Needed SCH (14:45)
[2022-05-25 14:58] LABS: Base Excess ABG 3.9 mEq/L (-9-1.8); HCO3 ABG 28 mmol/L (19-24); Oxygen Saturation ABG > 100.0 % (90-95); PCO2 ABG 38 mmHg (35-46); PO2 ABG 184 mmHg (80-95); pH ABG 7.47 (7.35-7.45)
--- NOTE | 2022-05-25 14:58 | Electrocardiogram Report ---
Test Reason : Blood Pressure : / mmHG Vent. Rate : 069 BPM Atrial Rate : 069 BPM P-R Int : 140 ms QRS Dur : 084 ms QT Int : 412 ms P-R-T Axes : 049 055 039 degrees QTc Int : 441 ms Normal sinus rhythm Low voltage QRS Nonspecific T wave abnormality antep Borderline ECG When compared with ECG of 18-FEB-2014 18:38, No significant change Confirmed by Anand Troncoso ([id number]) on 05/25/2022 2:57:49 PM Referred By: Confirmed By:Anand Troncoso
[2022-05-25 15:01] LABS: Allen Test Pos (Pos)
[2022-05-25 15:02] LABS: Alanine Aminotransferase 13 U/L (7-52); Albumin Globulin Ratio 0.9 (0.9-2); Albumin Level 3.4 gm/dl (3.4-5.0); Alkaline Phosphatase 97 U/L (34-104); Anion Gap 7 (3-11); Aspartate Aminotransferase 29 U/L (13-39); BUN Creatinine Ratio 20.2 (10-20); Bilirubin,Total 0.3 mg/dl (0.2-1.0); Blood Urea Nitrogen 22 mg/dl (6-23); Calcium 8.7 mg/dl (8.5-10.1); Carbon Dioxide 26 mmol/L (21-32); Chloride 98 mmol/L (98-107); Est GFR (African American) 83.9 ml/min; Est GFR (Non-African American) 72.4 ml/min; Globulin 3.9 gm/dl (2.5-4.0); Glucose 86 mg/dl (70-99(Fasting)); Magnesium 2.5 mg/dl (1.7-2.4); Potassium 4.5 mmol/L (3.5-5.1); Sodium 131 mmol/L (136-145); Total Protein 7.3 gm/dl (6.0-8.3)
[2022-05-25 15:12] LABS: Prothrombin Time 10.5 Seconds (9.0-12.0)
[2022-05-25] MEDS ORDERED: VANCOMYCIN HCL 1,500 MG in SODIUM CHLORIDE 0.9% 500 ML IV ONE (15:30)
[2022-05-25 15:55] LABS: Influenza A virus by PCR Negative (Neg); Influenza B virus by PCR Negative (Neg); RSV by PCR Negative (Neg); SARS CoV2 RNA(COVID-19)Cepheid NEGATIVE (Negative)
[2022-05-25 16:00] LABS: Appearance Urine Clear (Clear); Bilirubin Urine Negative (Negative); Blood Urine Negative (Negative); Color Urine Yellow; Glucose Urine UA Negative (Negative); Ketones Urine Negative (Negative); Leukocyte Esterase Urine Negative (Negative); Nitrite Urine Negative (Negative); Protein Urine Negative (Negative); Specific Gravity Urine 1.007 (1.000-1.030); Urobilinogen Urine Negative (Negative)
--- NOTE | 2022-05-25 17:54 | History & Physical Report ---
Date of Service May 25, 2022 Assessment & Plan (1) Acute respiratory failure with hypoxia: (2) Pneumonia: (3) Down syndrome: (4) Dysphagia: (5) Constipation: (6) Seizure disorder: (7) Hepatitis B carrier: (8) Hypothyroidism: Plan This is a 63-year-old male resident of [facility] with PMH of intellectual disability secondary to Down syndrome, hypothyroidism, severe dysphagia, hep B carrier, leukopenia and schizophrenia who presents with shortness of breath and hypoxia from clinic and is found to have acute hypoxic respiratory failure in setting of pneumonia. Acute respiratory failure with hypoxia Pneumonia Ongoing respiratory illness, has been seen by ER and outpatient providers with multiple antibiotics in the past few months No leukocytosis, procal negative CXR withleft basilar consolidation. Correlate clinically for evidence of pneumonia/aspiration pneumonitis. Mild opacities are also seen in the right lung base. This could represent atelectasis versus pneumonia. Continue empiric tx with Unasyn, vanco Chest percussive therapy, added Mucinex, supplemental oxygen via mask Intellectual disability 2/2 Down syndrome Minimally verbal at baseline Resides at [facility] Severe dysphagia History of PEG placement PEG placed in 2013. Severe dysphagia- strict NPO Osmolite feedings non-formulary - pharmacy assisting Constipation Small bowel movement 3 days ago. Obtaining KUB to r/u obstruction. Continue outpatient bowel regimen Seizure disorder Continue lamotrigine Hepatitis B Continue baraclude Hypothyroidism Continue levothyroxine DVT Ppx: SQ heparin Code status: FULL - need to clarify code with speech and language specialist Mr Montenegro during daylight hours at [phone]. No family is involved in patient's care. PCP: Douglas Dispo: Admitted to PCU Patient seen in collaboration with Dr. Phan. Please see addendum. History of Present Illness Chief Complaint: SOB, hypoxia Primary Care Provider: Milton Cole MD This is a 63-year-old male with PMH of intellectual disability secondary to Down syndrome, hypothyroidism, severe dysphagia, hep B carrier, leukopenia and schizophrenia who presents with shortness of breath and hypoxia from clinic. Patient resides at [facility] and is minimally verbal at baseline. Has history of recurrent aspiration pneumonia and is a strict n.p.o. with a PEG tube in place. Has had pneumonia for the last month and a half with multiple outpatient regimens without improvement of symptoms. Seen by primary care yesterday and started on azithromycin. Has also been requiring 3 people to assist with transfers, which is more significant than baseline. In clinic yesterday, oxygen saturations were noted to be in the low 80s. EMS was called and patient was placed on a nonrebreather and brought to the ED for further evaluation. Patient has cough and is more agitated than baseline, per caregiver at bedside. Patient is a full code, per facility but no formal documentation provided in binder at bedside. Unable to obtain ROS due to patient's cognitive status. Allergies Allergy/AdvReac Type Severity Reaction Status Date / Time pollen extracts Allergy Intermediate SNEEZING, Verified 05/25/22 17:28 CONGESTION Home Medications Medication Instructions Recorded Confirmed Type cholecalciferol (vitamin D3) 25 1,000 unit feeding tube QAM 05/31/18 05/25/22 History mcg (1,000 unit) tablet (Vitamin D3) ciclopirox 0.77 % topical cream 1 applic topical DAILY 05/31/18 05/25/22 History escitalopram oxalate 10 mg tablet 10 mg feeding tube QAM 05/31/18 05/25/22 Histo ry lamotrigine 150 mg tablet 150 mg feeding tube HS 05/31/18 05/25/22 History lamotrigine 25 mg tablet 50 mg feeding tube QAM 05/31/18 05/25/22 History levothyroxine 75 mcg capsule 75 mcg feeding tube QAM 05/31/18 05/25/22 History loratadine 10 mg capsule 10 mg feeding tube QAM 05/31/18 05/25/22 History olanzapine 5 mg tablet 5 mg feeding tube HS 05/31/18 05/25/22 History nutritional supplements 0.06 1 can feeding tube 5XD 11/22/18 05/25/22 History gram-1.2 kcal/mL oral liquid (Osmolite 1.2 Jamie) Calazime 1 applic topical DIRECTED PRN 05/25/22 05/25/22 History PREVENT SORES ON BUTTOCKS acetaminophen 500 mg/15 mL oral 1,000 mg feeding tube Q6H PRN 05/25/22 05/25/22 History liquid PAIN/FEVER albuterol sulfate 2.5 mg/3 mL 2.5 mg inhalation Q6H PRN ASTHMA 05/25/22 05/25/22 History (0.083 %) solution for nebulization albuterol sulfate 90 mcg/actuation 2 puff inhalation Q6H PRN PRIOR TO 05/25/22 05/25/22 History aerosol inhaler EXERCISE/SHORTNESS OF BREATH azithromycin 200 mg/5 mL oral 400 mg feeding tube DAILY 05/25/22 05/25/22 History suspension bisacodyl 10 mg rectal suppository 10 mg FL DAILY PRN Q4 DAYS IF MOM 05/25/22 05/25/22 History NO RESULTS. dextromethorphan-guaifenesin 10 10 ml feeding tube Q4H PRN Cough 05/25/22 05/25/22 History mg-100 mg/5 mL oral liquid (Tussin DM) entecavir 0.05 mg/mL oral solution 10 ml feeding tube DAILY 05/25/22 05/25/22 History (Baraclude) famotidine 20 mg tablet 20 mg feeding tube BID 05/25/22 05/25/22 History gentamicin 0.3 % eye drops 1 drp OPB Q4H PRN REDNESS 05/25/22 05/25/22 History magnesium hydroxide 400 mg/5 mL 30 ml feeding tube DAILY PRN 05/25/22 05/25/22 History oral suspension (Milk of Magnesia) Constipation mupirocin 2 % topical ointment 1 applic topical TID PRN 05/25/22 05/25/22 History Inflammation polyethylene glycol 3350 17 gram 17 g feeding tube DAILY 05/25/22 05/25/22 History oral powder packet polyethylene glycol 3350 17 17 g feeding tube DAILY PRN 05/25/22 05/25/22 History gram/dose oral powder (Miralax) Constipation psyllium 1 tsp feeding tube BID 05/25/22 05/25/22 History sennosides 8.6 mg-docusate sodium 2 tab-cap HS 05/25/22 05/25/22 History 50 mg tablet (Senna-S) water 1 ea TID 05/25/22 05/25/22 History Past Med/Surg History Medical History (Updated 05/25/22 @ 20:01 by Radha Pinto PA-C) Aspiration pneumonia Cataract MLD CATARACT IN BOTH EYES Down's syndrome Dysphagia PEG TUBE GERD (gastroesophageal reflux disease) Hepatitis B CARRIER Hyperlipidemia Hypothyroidism Impacted cerumen of both ears Leukopenia Pica Schizophrenia Sleep apnea Stroke CVA DX DECEMBER 2000 AFTER SYNCOPAL EPISODE Surgical History History of colonoscopy 2006 History of elbow surgery PIN IN LEFT ELBOW History of tooth extraction Status post insertion of percutaneous endoscopic gastrostomy (PEG) tube INSERTED 2014, CHANGED 2016 Family History Other Heart disease Social History Smoking Status: Never smoker Hx Alcohol Use: No Hx Substance Use: No Preferred Language: Gambian Communication Ability: Impaired Margin Analyst Required: No Beliefs That Will Affect Care: None Current Living Situation: Other Current Living Situation Comment: Jail Other Information That Helps Us Care for You: No Feels Safe at Home: Yes Assistive Devices: Brace/Splint/Immobilizer Assistive Devices Comment: Neck brace when out of bed Review of Systems Review of Systems: Unobtainable due to cognitive status Physical Exam Physical Exam: Please see Dr. Phan's addendum for physical exam. Results & Data Results & Data ([facility]) Vital Signs (Past 12 Hours) Vital Signs Pulse Pulse Resp BP BP Pulse Ox O2 Del Method 05/25/22 15:45 68 22 108/70 100 Aerosol Mask 05/25/22 13:38 68 20 111/82 100 Aerosol Mask 05/25/22 13:38 Aerosol Mask 05/25/22 14:28 100 Room Air 05/25/22 14:28 66 22 100 Aerosol Mask O2 Flow Rate 05/25/22 15:45 10 05/25/22 13:38 10 05/25/22 13:38 10 05/25/22 14:28 10 05/25/22 14:28 10 Laboratory Results Short CBC 05/25/22 Range/Units 13:50 WBC 8.67 (4.8-10.8) K/ul Hgb 11.6 L (14.0-18.0) g/dl Hct 34.5 L (40.1-51.0) % Plt Count 184 (130-400) K/uL BMP 05/25/22 13:50 Sodium 131 L Potassium 4.5 Chloride 98 Carbon Dioxide 26 BUN 22 Creatinine 1.09 Glucose 86 Calcium 8.7 Liver Function 05/25/22 Range/Units 13:50 Total Bilirubin 0.3 (0.2-1.0) mg/dl AST 29 (13-39) U/L ALT 13 (7-52) U/L Alkaline Phosphatase 97 (34-104) U/L Albumin 3.4 (3.4-5.0) gm/dl Urine 05/25/22 Range/Units 15:50 Urine Color Yellow Urine Appearance Clear (Clear) Urine pH 8.0 H (4.5-7.5) Ur Specific Easley 1.007 (1.000-1.030) Urine Protein Negative (Negative) Urine Glucose (UA) Negative (Negative) Diagnostic Findings Chest X-Ray 05/25/22 14:02 SINGLE VIEW CHEST CLINICAL HISTORY: Dyspnea FINDINGS: An AP, portable, upright chest radiograph is compared to study dated 02/26/2014. The cardiomediastinal silhouette is unremarkable. Airspace consolidation is seen at the left lung base. No large pleural effusion is identified. Mild opacities are seen in the right lung base. No pneumothorax is seen. The skeletal structures are osteopenic. The bony thorax is grossly intact. A gastrostomy tube is noted in the upper abdomen. IMPRESSION: 1. There is left basilar consolidation. Correlate clinically for evidence of pneumonia/aspiration pneumonitis. Radiographic follow-up to resolution is recommended. 2. Mild opacities are also seen in the right lung base. This could represent atelectasis versus pneumonia. ACT 112: Negative or not required by law. Electronically signed by: Matthew Luque M.D. 05/25/2022 2:29 PM Supervising Physician Co-Signing Physician Notes Pt is a 62 y/o M with hx of Downs syndrome, Dementia, Dysphagia s/p PEG tube, Hypothyroidism, Chronic constipation, Chronic hepatitis B on Entecavir, KATLYN admitted for worsening respiratory symptoms with acute hypoxia. PE: In moderate respiratory distress, oxymask in place Heart: Normal S1/S2, possible systolic murmur Lungs: Pectus excavatum, fair air entry b/l but b/l diffuse rales Abd: distended, NT and soft MSK: no LE edema Psych: only spoke 2 words but follows command A/P: Acute respiratory failure 2/2 Pneumonia: -due to prior hx of aspiration will do Vanc and Unasyn -Sputum Cx -mucinex BID with Chest PT BID -will continue the pt on oxymask (was on 4L) ---- wean as he tolerates -no wheezing on exam: no need for nebs -PT/OT Abd distention with hx of constipation: -received enema at the facility - will get abx xray -will continue bowel regimen Other chronic conditions: plan as above Agree with A/P by Radha Pinto PA-C
[2022-05-25] MEDS ORDERED: POLYETHYLENE (MIRALAX) 17 GM PACK PO PRN (19:00)
[2022-05-25] MEDS ORDERED: ACETAMINOPHEN 325 MG TAB PO PRN (19:00)
[2022-05-25] MEDS ORDERED: ONDANSETRON INJ 2 MG/ML 2 ML VIAL IV PRN (19:00)
[2022-05-25] MEDS ORDERED: MAGNESIUM HYDROXIDE SUSP 30 ML UDC PO PRN (19:00)
[2022-05-25] MEDS ORDERED: MAGNESIUM HYDROXIDE SUSP 30 ML UDC GT PRN (20:01)
[2022-05-25] MEDS ORDERED: bisacodyL 10 MG SUPP PR PRN (20:01)
[2022-05-25] MEDS ORDERED: ALBUTEROL 0.083% NEBU SOLN 3 ML VIAL INH PRN (20:01)
[2022-05-25] MEDS ORDERED: GENTAMICIN SULFATE 0.3% OP SOLN 5 ML BTL OPB PRN (20:01)
[2022-05-25] MEDS ORDERED: [UNRECOGNIZED DRUG - OTHER] feeding tube SCH (20:15)
[2022-05-25] MEDS ORDERED: NUTRITIONAL SUPPLEMENTS feeding tube SCH (20:15)
--- NOTE | 2022-05-25 20:39 | XRay Report ---
KUB HISTORY: eval for constipation COMPARISON: KUB 02/25/2014. FINDINGS: Postoperative changes again noted within the left hip. Moderate to large amount of well-for med stool seen throughout the colon. No dilated loops of bowel to suggest an obstruction. No renal c alculi. No ureteral calculi. Calcifications in the deep pelvis likely represent phleboliths. A gastro stomy tube is again noted within the epigastric region. No pneumoperitoneum or pneumatosis. IMPRESSION: Moderate to large amount of well-formed stool seen throughout the colon. ACT 112: Negative or not required by law. Electronically signed by: Juan Moon M.D. 05/25/2022 8:38 PM
[2022-05-25] MEDS ORDERED: guaiFENesin 600 MG TABCR PO SCH (21:00)
[2022-05-25] MEDS ORDERED: WATER PEG SCH (21:00)
[2022-05-25] MEDS ORDERED: ACETAMINOPHEN SUSP 500 MG/15.6 ML UDP PO PRN (21:29)
[2022-05-25] MEDS ORDERED: MENTHOL-ZINC OXIDE 360 APPLN/120 GM TUBE EXT PRN (21:30)
[2022-05-25] MEDS: [UNRECOGNIZED DRUG - OTHER] SCH (21:55)
[2022-05-25] MEDS: HEPARIN SOD 5,000 UNIT/0.5 ML VIAL SQ SCH (22:08)
[2022-05-25] MEDS: TUBE FEEDING WATER FLUSH GT SCH (22:08)
[2022-05-25] MEDS: guaiFENesin/DEXTROM SYRUP 200MG/20MG 10ML UDC GT PRN (22:08)
[2022-05-25] MEDS: AMPICILLIN/SULBACTAM SOD 3,000 MG in 0.9 % SODIUM CHLORIDE 100 ML IV SCH (22:08)
[2022-05-25] MEDS: lamoTRIgine 100 MG TAB PO SCH (22:09)
[2022-05-25] MEDS: OLANZapine ZYDIS 5 MG ORALLY DIS. TAB PO SCH (22:09)
[2022-05-25] MEDS: FAMOTIDINE 20 MG TAB JT SCH (22:09)
[2022-05-25] MEDS: DOCUSATE SODIUM/SENNA 50/8.6MG TAB PO SCH (22:10)
[2022-05-26] MEDS: AMPICILLIN/SULBACTAM SOD 3,000 MG in 0.9 % SODIUM CHLORIDE 100 ML IV SCH ×4 (04:25→21:49)
[2022-05-26] MEDS: LEVOTHYROXINE SODIUM 75 MCG TABLET GT SCH (06:18)
[2022-05-26] MEDS: HEPARIN SOD 5,000 UNIT/0.5 ML VIAL SQ SCH ×3 (06:18→22:18)
[2022-05-26 07:08] LABS: Hematocrit (blood only) 32.9 % (40.1-51.0); Hemoglobin 11.3 g/dl (14.0-18.0); Mean Corpuscular Hemoglobin 33.6 pg (25.0-34.0); Mean Corpuscular Hgb Conc 34.3 g/dL (32.0-36.0); Mean Corpuscular Volume 97.9 fL (80.0-100.0); Mean Platelet Volume 9.8 fL (9.4-12.4); Platelet Count 158 K/uL (130-400); RDW Coefficient of Variation 12.7 % (11.5-14.5); RDW Standard Deviation 45.2 fL (36.4-46.3); Red Blood Count 3.36 M/uL (4.63-6.08); White Blood Count 6.59 K/ul (4.8-10.8)
[2022-05-26 07:26] LABS: Calcium 8.4 mg/dl (8.5-10.1); Est GFR (African American) 75.4 ml/min; Est GFR (Non-African American) 65.1 ml/min; Potassium 4.3 mmol/L (3.5-5.1)
[2022-05-26] MEDS ORDERED: Nursing to Pharmacy Communication SCH (08:30)
[2022-05-26] MEDS ORDERED: FLUARIX QUADRIVALENT 0.5 ML SYR IM ONE (09:00)
[2022-05-26] MEDS: FAMOTIDINE 20 MG TAB JT SCH ×2 (09:51→19:43)
[2022-05-26] MEDS: CHOLECALCIFEROL 1,000 UNITS 25 MCG TAB GT SCH (09:51)
[2022-05-26] MEDS: lamoTRIgine 25 MG TAB PO SCH (09:51)
[2022-05-26] MEDS: TUBE FEEDING WATER FLUSH GT SCH ×4 (09:51→19:42)
[2022-05-26] MEDS: ESCITALOPRAM OXALATE 10 MG TAB PO SCH (09:52)
[2022-05-26] MEDS: POLYETHYLENE (MIRALAX) 17 GM PACK PEG SCH (09:52)
[2022-05-26] MEDS: LORATADINE 1 MG/1 ML GT SCH (09:52)
[2022-05-26] MEDS: PSYLLIUM or GUAR GUM FIBER POWDER PACKET PO SCH ×2 (09:52→19:44)
[2022-05-26] MEDS: DOXYCYCLINE HYCLATE 100 MG in DEXTROSE 5% 100 ML IV SCH ×2 (11:09→22:20)
[2022-05-26] MEDS ORDERED: FIBERSOURCE HN 1.2 CAL 1000 ML BAG GT SCH (11:15)
[2022-05-26] MEDS: [UNRECOGNIZED DRUG - OTHER] SCH (13:29)
[2022-05-26] MEDS: CICLOPIROX~ORDER AWAITING ACTION SCH ×2 (13:29→16:28)
[2022-05-26] MEDS: FIBERSOURCE HN 1.2 CAL 1000 ML BAG GT SCH (14:08)
[2022-05-26] MEDS ORDERED: bisacodyL 10 MG SUPP PR PRN (16:43)
--- NOTE | 2022-05-26 16:49 | Hospitalist Progress Note ---
Date of Service May 26, 2022 Assessment & Plan (1) Acute respiratory failure with hypoxia: (2) Pneumonia: (3) Down syndrome: (4) Dysphagia: (5) Constipation: (6) Seizure disorder: (7) Hepatitis B carrier: (8) Hypothyroidism: Plan Per Dr. Tariq's notes with addendum: This is a 63-year-old male resident of [facility] with PMH of intellectual disability secondary to Down syndrome, hypothyroidism, severe dysphagia, hep B carrier, leukopenia and schizophrenia who presents with shortness of breath and hypoxia from clinic and is found to have acute hypoxic respiratory failure in setting of pneumonia. Acute respiratory failure with hypoxia Pneumonia Ongoing respiratory illness, has been seen by ER and outpatient providers with multiple antibiotics in the past few months No leukocytosis, procal negative CXR withleft basilar consolidation. Correlate clinically for evidence of pneumonia/aspiration pneumonitis. Mild opacities are also seen in the right lung base. This could represent atelectasis versus pneumonia. Continue empiric tx with Unasyn, vanco Chest percussive therapy, added Mucinex, supplemental oxygen via mask 05/26 Remains on 3 L of oxygen via OxiMax Sputum culture: Gram-negative bacilli Blood cultures: Negative so far Continue Unasyn, doxycycline Tube feedings resumed, metalizing machine operator on board Milk of magnesia, Dulcolax suppository ordered for constipation Intellectual disability 2/2 Down syndrome Minimally verbal at baseline Resides at [facility] Severe dysphagia History of PEG placement PEG placed in 2013. Severe dysphagia- strict NPO Osmolite feedings non-formulary - pharmacy and metalizing machine operator on board Constipation Positive BM yesterday KUB: Showing large amounts of stool Management per above Seizure disorder Continue lamotrigine Hepatitis B Continue baraclude Hypothyroidism Continue levothyroxine DVT Ppx: SQ heparin Code status: FULL - need to clarify code with it security specialist Mr Montenegro during daylight hours at [phone]. No family is involved in patient's care. PCP: Douglas Dispo: Anticipate return to [facility] when medically stable Admission and Anticipated Discharge Date Admission Date: May 25, 2022 Subjective Follow-up for acute hypoxic respiratory failure, pneumonia, etc. Seen with patient's caregiver Nadya at the bedside As per Nadya, patient still not back to baseline, appears confused Usually can interact more, say a few words Awake and alert, not in distress On 3 L of oxygen via OxiMax No signs of pain or shortness of breath No BM today No other issues per mental health coordinator of Systems Review of Systems: all noted and negative except for above Physical Exam Physical Exam: General- oriented x 0, not in distress, breathing with no effort or accessory muscle use Eyes- anicteric Neck- no JVD Lungs-very mild crackles at the bases, no wheezing Heart- normal rate, regular rhythm; no murmurs Abdomen- normal bowel sounds, mildly distended, soft, nontender Extremities- no pretibial edema, no calf tenderness Neuro- alert, oriented x 0; no new gross focal neurologic deficits Skin- warm & dry Results & Data Results & Data ([facility]) Vital Signs (Past 12 Hours) Vital Signs Temp Pulse Pulse Resp BP Pulse Ox O2 Del Method 05/26/22 15:08 36.8 C 63 19 104/59 L 98 Nasal Cannula 05/26/22 12:49 Oxymask 05/26/22 12:42 Nasal Cannula 05/26/22 08:00 70 05/26/22 10:48 36.4 C L 63 19 90/57 L 94 Oxymask 05/26/22 07:11 36.8 C 76 19 99/63 L 97 Oxymask O2 Flow Rate 05/26/22 15:08 3 05/26/22 12:49 3 05/26/22 12:42 3 05/26/22 08:00 05/26/22 10:48 3 05/26/22 07:11 3 all noted and reviewed including below
[2022-05-26] MEDS ORDERED: MAGNESIUM HYDROXIDE SUSP 30 ML UDC PEG ONE (17:00)
[2022-05-26] MEDS: ENTECAVIR 0.05 MG/ML PEG SCH (17:23)
[2022-05-26] MEDS: [UNRECOGNIZED DRUG - OTHER] OPL SCH (19:42)
[2022-05-26] MEDS: BACITRACIN OPL SCH (19:42)
[2022-05-26] MEDS: DOCUSATE SODIUM/SENNA 50/8.6MG TAB PO SCH (19:43)
[2022-05-26] MEDS: lamoTRIgine 100 MG TAB PO SCH (19:43)
[2022-05-26] MEDS: OLANZapine ZYDIS 5 MG ORALLY DIS. TAB PO SCH (19:44)
[2022-05-27] MEDS: CICLOPIROX~ORDER AWAITING ACTION SCH ×3 (00:38→16:45)
[2022-05-27] MEDS: TUBE FEEDING WATER FLUSH GT SCH ×4 (02:33→20:12)
[2022-05-27] MEDS: AMPICILLIN/SULBACTAM SOD 3,000 MG in 0.9 % SODIUM CHLORIDE 100 ML IV SCH (04:06)
[2022-05-27] MEDS: HEPARIN SOD 5,000 UNIT/0.5 ML VIAL SQ SCH ×3 (05:55→20:32)
[2022-05-27] MEDS: LEVOTHYROXINE SODIUM 75 MCG TABLET GT SCH (05:55)
[2022-05-27 07:12] LABS: Hematocrit (blood only) 32.7 % (40.1-51.0); Hemoglobin 11.2 g/dl (14.0-18.0); Mean Corpuscular Hemoglobin 33.4 pg (25.0-34.0); Mean Corpuscular Hgb Conc 34.3 g/dL (32.0-36.0); Mean Corpuscular Volume 97.6 fL (80.0-100.0); Mean Platelet Volume 10.1 fL (9.4-12.4); Platelet Count 151 K/uL (130-400); RDW Coefficient of Variation 12.6 % (11.5-14.5); RDW Standard Deviation 44.9 fL (36.4-46.3); Red Blood Count 3.35 M/uL (4.63-6.08); White Blood Count 3.48 K/ul (4.8-10.8)
[2022-05-27 07:39] LABS: BUN Creatinine Ratio 14.8 (10-20); Calcium 8.6 mg/dl (8.5-10.1); Creatinine Clr Calc Pharmacy 62.2 ml/min; Est GFR (African American) 84.8 ml/min; Est GFR (Non-African American) 73.2 ml/min; Potassium 4.1 mmol/L (3.5-5.1)
[2022-05-27] MEDS: lamoTRIgine 25 MG TAB PO SCH (07:47)
[2022-05-27] MEDS: POLYETHYLENE (MIRALAX) 17 GM PACK PEG SCH (07:47)
[2022-05-27] MEDS: ESCITALOPRAM OXALATE 10 MG TAB PO SCH (07:48)
[2022-05-27] MEDS: CHOLECALCIFEROL 1,000 UNITS 25 MCG TAB GT SCH (07:48)
[2022-05-27] MEDS: PSYLLIUM or GUAR GUM FIBER POWDER PACKET PO SCH ×2 (07:49→20:13)
[2022-05-27] MEDS: ENTECAVIR 0.05 MG/ML PEG SCH (07:51)
[2022-05-27] MEDS: FAMOTIDINE 20 MG TAB JT SCH ×2 (07:51→20:13)
[2022-05-27] MEDS: LORATADINE 1 MG/1 ML GT SCH (07:51)
[2022-05-27] MEDS ORDERED: SODIUM CHLORIDE 0.9% 1000ML 1,000 ML IV SCH (08:45)
[2022-05-27] MEDS: DOXYCYCLINE HYCLATE 100 MG in DEXTROSE 5% 100 ML IV SCH ×2 (09:13→20:32)
[2022-05-27] MEDS: CEFEPIME 2,000 MG in SYRINGE 0 ML IV SCH ×2 (09:18→16:45)
--- NOTE | 2022-05-27 16:42 | Hospitalist Progress Note ---
Date of Service May 27, 2022 Assessment & Plan (1) Acute respiratory failure with hypoxia: (2) Pneumonia: (3) Down syndrome: (4) Dysphagia: (5) Constipation: (6) Seizure disorder: (7) Hepatitis B carrier: (8) Hypothyroidism: Plan Per Dr. Tariq's notes with addendum: This is a 63-year-old male resident of [facility] with PMH of intellectual disability secondary to Down syndrome, hypothyroidism, severe dysphagia, hep B carrier, leukopenia and schizophrenia who presents with shortness of breath and hypoxia from clinic and is found to have acute hypoxic respiratory failure in setting of pneumonia. Acute respiratory failure with hypoxia Pneumonia Ongoing respiratory illness, has been seen by ER and outpatient providers with multiple antibiotics in the past few months No leukocytosis, procal negative CXR withleft basilar consolidation. Correlate clinically for evidence of pneumonia/aspiration pneumonitis. Mild opacities are also seen in the right lung base. This could represent atelectasis versus pneumonia. Continue empiric tx with Unasyn, vanco Chest percussive therapy, added Mucinex, supplemental oxygen via mask 05/27 Remains on 3 L of oxygen via OxiMax Sputum culture: Pseudomonas Blood cultures: Negative so far Unasyn changed to cefepime day #1 Continue doxycycline day #2 Continue tube feedings , underpresser hand on board Had BM yesterday Milk of magnesia, Dulcolax suppository ordered for constipation Intellectual disability 2/2 Down syndrome Minimally verbal at baseline Resides at [facility] Severe dysphagia History of PEG placement PEG placed in 2013. Severe dysphagia- strict NPO Osmolite feedings non-formulary - pharmacy and underpresser hand on board Constipation Positive BM yesterday KUB: Showing large amounts of stool Management per above Seizure disorder Continue lamotrigine Hepatitis B Continue baraclude Hypothyroidism Continue levothyroxine DVT Ppx: SQ heparin Code status: FULL - need to clarify code with therapeutic recreation specialist Mr Montenegro during daylight hours at [phone]. No family is involved in patient's care. PCP: Douglas Dispo: Anticipate return to [facility] when medically stable Admission and Anticipated Discharge Date Admission Date: May 25, 2022 Subjective Follow-up for bilateral pneumonia, hypoxia, etc. Seen resting in bed, comfortable, not in distress On 3 L of oxygen via OxiMax Seems to be more alert today, first examiner when called No signs of respiratory distress, pain Per RN, patient is stable today No new issues No BMs today Review of Systems Review of Systems: all noted and negative except for above Physical Exam Physical Exam: General-awake, alert, not in distress, breathing without effort or accessory muscle use Eyes- anicteric Neck- no JVD Lungs-mild rhonchi at the bases, no wheezing Heart- normal rate, regular rhythm; no murmurs Abdomen- normal bowel sounds, nondistended, soft, nontender PEG tube in place No issues Extremities- no pretibial edema, no calf tenderness Neuro- alert, no new gross focal neurologic deficits Skin- warm & dry Results & Data Results & Data ([facility]) Vital Signs (Past 12 Hours) Vital Signs Temp Pulse Pulse Resp BP Pulse Ox O2 Del Method 05/27/22 15:41 36.7 C 88 20 131/64 97 05/27/22 15:32 Oxymask 05/27/22 12:05 37 C 76 18 111/71 94 Oxymask 05/27/22 08:00 Oxymask 05/27/22 07:47 36.8 C 80 18 91/57 L 95 Oxymask 05/27/22 07:09 68 O2 Flow Rate 05/27/22 15:41 05/27/22 15:32 2 05/27/22 12:05 2 05/27/22 08:00 2 05/27/22 07:47 2 05/27/22 07:09 all noted and reviewed including below
[2022-05-27] MEDS ORDERED: MAGNESIUM HYDROXIDE SUSP 30 ML UDC PO ONE (16:45)
[2022-05-27] MEDS: [UNRECOGNIZED DRUG - OTHER] OPL SCH (20:12)
[2022-05-27] MEDS: BACITRACIN OPL SCH (20:12)
[2022-05-27] MEDS: DOCUSATE SODIUM/SENNA 50/8.6MG TAB PO SCH (20:13)
[2022-05-27] MEDS: lamoTRIgine 100 MG TAB PO SCH (20:14)
[2022-05-27] MEDS: OLANZapine ZYDIS 5 MG ORALLY DIS. TAB PO SCH (20:14)
[2022-05-28] MEDS: CEFEPIME 2,000 MG in SYRINGE 0 ML IV SCH ×3 (00:20→17:20)
[2022-05-28] MEDS: CICLOPIROX~ORDER AWAITING ACTION SCH ×3 (00:20→15:51)
[2022-05-28] MEDS: TUBE FEEDING WATER FLUSH GT SCH ×4 (01:27→20:46)
[2022-05-28] MEDS: LEVOTHYROXINE SODIUM 75 MCG TABLET GT SCH (05:29)
[2022-05-28] MEDS: HEPARIN SOD 5,000 UNIT/0.5 ML VIAL SQ SCH ×3 (05:29→21:47)
[2022-05-28 09:29] LABS: Calcium 8.8 mg/dl (8.5-10.1); Creatinine Clr Calc Pharmacy 62.5 ml/min; Est GFR (African American) 86.8 ml/min; Est GFR (Non-African American) 74.8 ml/min
[2022-05-28 09:50] LABS: Thyroid Stimulating Hormone 6.907 uIu/ml (0.300-4.500)
[2022-05-28 09:53] LABS: T4 Free Thyroxine 0.87 ng/dl (0.61-1.60)
[2022-05-28] MEDS: LORATADINE 1 MG/1 ML GT SCH (10:00)
[2022-05-28] MEDS: lamoTRIgine 25 MG TAB PO SCH (10:00)
[2022-05-28] MEDS: FAMOTIDINE 20 MG TAB JT SCH ×2 (10:01→21:47)
[2022-05-28] MEDS: CHOLECALCIFEROL 1,000 UNITS 25 MCG TAB GT SCH (10:01)
[2022-05-28] MEDS: ESCITALOPRAM OXALATE 10 MG TAB PO SCH (10:02)
[2022-05-28] MEDS: POLYETHYLENE (MIRALAX) 17 GM PACK PEG SCH (10:07)
[2022-05-28] MEDS: PSYLLIUM or GUAR GUM FIBER POWDER PACKET PO SCH ×2 (10:08→21:49)
[2022-05-28] MEDS: DOXYCYCLINE HYCLATE 100 MG in DEXTROSE 5% 100 ML IV SCH ×2 (10:24→21:50)
[2022-05-28] MEDS: ENTECAVIR 0.05 MG/ML PEG SCH (10:29)
--- NOTE | 2022-05-28 10:50 | XRay Report ---
XR chest 1V portable HISTORY: Follow up pneumonia. COMPARISON: Chest 05/25/2022. FINDINGS: No pneumothorax. There are low lung volumes. The heart is normal in size. Mild diffuse inte rstitial thickening again noted. Bibasilar opacities most pronounced on the left have improved. The u pper lung zones remain clear.. IMPRESSION: Interval improvement in the patchy bibasilar densities most pronounced on the left. ACT 112: Negative or not required by law. Electronically signed by: Juan Moon M.D. 05/28/2022 10:48 AM
[2022-05-28] MEDS: FIBERSOURCE HN 1.2 CAL 1000 ML BAG GT SCH (12:43)
--- NOTE | 2022-05-28 17:02 | Hospitalist Progress Note ---
Date of Service May 28, 2022 Assessment & Plan (1) Acute respiratory failure with hypoxia: (2) Pneumonia: (3) Down syndrome: (4) Dysphagia: (5) Constipation: (6) Seizure disorder: (7) Hepatitis B carrier: (8) Hypothyroidism: Plan Per Dr. Tariq's notes with addendum: This is a 63-year-old male resident of [facility] with PMH of intellectual disability secondary to Down syndrome, hypothyroidism, severe dysphagia, hep B carrier, leukopenia and schizophrenia who presents with shortness of breath and hypoxia from clinic and is found to have acute hypoxic respiratory failure in setting of pneumonia. Acute respiratory failure with hypoxia Pneumonia Ongoing respiratory illness, has been seen by ER and outpatient providers with multiple antibiotics in the past few months No leukocytosis, procal negative CXR withleft basilar consolidation. Correlate clinically for evidence of pneumonia/aspiration pneumonitis. Mild opacities are also seen in the right lung base. This could represent atelectasis versus pneumonia. Continue empiric tx with Unasyn, vanco Chest percussive therapy, added Mucinex, supplemental oxygen via mask 05/27 Remains on 3 L of oxygen via OxiMax Sputum culture: Pseudomonas Blood cultures: Negative so far 05/28 Weaned off oxygen today Repeat chest x-ray: Improving infiltrates Continue cefepime day #2 Doxycycline day #3 Continue tube feedings , crude tester on board Had 2 BMs today Milk of magnesia, Dulcolax suppository as needed ordered for constipation Intellectual disability 2/2 Down syndrome Minimally verbal at baseline Resides at [facility] Severe dysphagia History of PEG placement PEG placed in 2013. Severe dysphagia- strict NPO Osmolite feedings non-formulary - pharmacy and crude tester on board Constipation Positive BM yesterday KUB: Showing large amounts of stool Management per above Seizure disorder Continue lamotrigine Hepatitis B Continue baraclude Hypothyroidism Continue levothyroxine DVT Ppx: SQ heparin Code status: FULL - need to clarify code with electronics specialist Mr Montenegro during daylight hours at [phone]. No family is involved in patient's care. PCP: Douglas Dispo: Anticipate return to [facility] when medically stable Admission and Anticipated Discharge Date Admission Date: May 25, 2022 Subjective Follow-up for lateral pneumonia, etc. Seen resting in bed, comfortable, not distressed Awake and alert Off oxygen Not in distress, no signs of respiratory distress Per RN, patient had 2 BMs today No issues with tube feeding No other symptoms Review of Systems Review of Systems: all noted and negative except for above Physical Exam Physical Exam: General- oriented x 0, not in distress, speaking a few words, breathing with no effort or accessory muscle use Eyes- anicteric Neck- no JVD Lungs-mild rhonchi anteriorly No wheezing Heart- normal rate, regular rhythm; no murmurs Abdomen- normal bowel sounds, nondistended, soft, nontender PEG tube in place-no issues Extremities- no pretibial edema, no calf tenderness Neuro- alert, no new gross focal neurologic deficits Skin- warm & dry Results & Data Results & Data ([facility]) Vital Signs (Past 12 Hours) Vital Signs Temp Pulse Pulse Resp BP Pulse Ox O2 Del Method 05/28/22 15:23 67 05/28/22 12:00 36.7 C 68 20 115/59 L 97 05/28/22 08:00 36.6 C 60 18 109/74 97 05/28/22 07:41 57 L 05/28/22 05:50 94 Room Air all noted and reviewed including below
[2022-05-28] MEDS: BACITRACIN OPL SCH (21:46)
[2022-05-28] MEDS: [UNRECOGNIZED DRUG - OTHER] OPL SCH (21:46)
[2022-05-28] MEDS: DOCUSATE SODIUM/SENNA 50/8.6MG TAB PO SCH (21:46)
[2022-05-28] MEDS: lamoTRIgine 100 MG TAB PO SCH (21:48)
[2022-05-28] MEDS: OLANZapine ZYDIS 5 MG ORALLY DIS. TAB PO SCH (21:48)
[2022-05-29] MEDS: CICLOPIROX~ORDER AWAITING ACTION SCH ×4 (00:13→22:51)
[2022-05-29] MEDS: CEFEPIME 2,000 MG in SYRINGE 0 ML IV SCH ×3 (01:42→17:19)
[2022-05-29] MEDS: TUBE FEEDING WATER FLUSH GT SCH ×4 (01:43→19:57)
[2022-05-29] MEDS: HEPARIN SOD 5,000 UNIT/0.5 ML VIAL SQ SCH ×3 (06:13→20:17)
[2022-05-29] MEDS: LEVOTHYROXINE SODIUM 75 MCG TABLET GT SCH (06:13)
[2022-05-29] MEDS: LORATADINE 1 MG/1 ML GT SCH (09:32)
[2022-05-29] MEDS: PSYLLIUM or GUAR GUM FIBER POWDER PACKET PO SCH ×2 (09:32→20:10)
[2022-05-29] MEDS: POLYETHYLENE (MIRALAX) 17 GM PACK PEG SCH (09:32)
[2022-05-29] MEDS: FAMOTIDINE 20 MG TAB JT SCH ×2 (09:32→20:08)
[2022-05-29] MEDS: CHOLECALCIFEROL 1,000 UNITS 25 MCG TAB GT SCH (09:33)
[2022-05-29] MEDS: lamoTRIgine 25 MG TAB PO SCH (09:33)
[2022-05-29] MEDS: ENTECAVIR 0.05 MG/ML PEG SCH (09:35)
[2022-05-29] MEDS: ESCITALOPRAM OXALATE 10 MG TAB PO SCH (09:36)
[2022-05-29] MEDS: DOXYCYCLINE HYCLATE 100 MG in DEXTROSE 5% 100 ML IV SCH ×2 (09:37→20:17)
--- NOTE | 2022-05-29 16:01 | Hospitalist Progress Note ---
Date of Service May 29, 2022 Assessment & Plan (1) Acute respiratory failure with hypoxia: (2) Pneumonia: (3) Down syndrome: (4) Dysphagia: (5) Constipation: (6) Seizure disorder: (7) Hepatitis B carrier: (8) Hypothyroidism: Plan Per Dr. Tariq's notes with addendum: This is a 63-year-old male resident of [facility] with PMH of intellectual disability secondary to Down syndrome, hypothyroidism, severe dysphagia, hep B carrier, leukopenia and schizophrenia who presents with shortness of breath and hypoxia from clinic and is found to have acute hypoxic respiratory failure in setting of pneumonia. Acute respiratory failure with hypoxia Pneumonia Ongoing respiratory illness, has been seen by ER and outpatient providers with multiple antibiotics in the past few months No leukocytosis, procal negative CXR withleft basilar consolidation. Correlate clinically for evidence of pneumonia/aspiration pneumonitis. Mild opacities are also seen in the right lung base. This could represent atelectasis versus pneumonia. Continue empiric tx with Unasyn, vanco Chest percussive therapy, added Mucinex, supplemental oxygen via mask 05/27 Remains on 3 L of oxygen via OxiMax Sputum culture: Pseudomonas Blood cultures: Negative so far 05/28 Weaned off oxygen today Repeat chest x-ray: Improving infiltrates Continue cefepime day #2 Doxycycline day #3 05/29 Remains stable off oxygen supplement Continue cefepime day #3, doxycycline day #4 Continue tube feedings , histology manager on board Had BM today Milk of magnesia, Dulcolax suppository as needed ordered for constipation Intellectual disability 2/2 Down syndrome Minimally verbal at baseline Resides at [facility] Severe dysphagia History of PEG placement PEG placed in 2013. Severe dysphagia- strict NPO Osmolite feedings non-formulary - pharmacy and histology manager on board Constipation Positive BM KUB: Showing large amounts of stool Management per above Seizure disorder Continue lamotrigine Hepatitis B Continue baraclude Hypothyroidism Continue levothyroxine DVT Ppx: SQ heparin Code status: FULL - need to clarify code with technology sales specialist Mr Montenegro during daylight hours at [phone]. No family is involved in patient's care. PCP: Douglas Dispo: Anticipate return [facility] when medically stable Admission and Anticipated Discharge Date Admission Date: May 25, 2022 Subjective Follow-up for bilateral pneumonia, with hypoxia, etc. Seen resting in bed, comfortable, not in distress Awake On room air Tries to answer in regards Tries to look at examiner when name is called No signs of pain, nausea Positive BM today as per STUDIO PRODUCER No other issues noted Review of Systems Review of Systems: all noted and negative except for above Physical Exam Physical Exam: General not in distress, breathing withouteffort or accessory muscle use Eyes- anicteric Neck- no JVD Lungs-minimal rhonchi anteriorly, bilaterally Heart- normal rate, regular rhythm; no murmurs Abdomen- normal bowel sounds, nondistended, soft, nontender PEG tube in place-no issues Extremities- no pretibial edema, no calf tenderness Neuro- alert, no new gross focal neurologic deficit Skin- warm & dry Results & Data Results & Data ([facility]) Vital Signs (Past 12 Hours) Vital Signs Temp Pulse Pulse Resp BP Pulse Ox O2 Del Method 05/29/22 08:00 68 05/29/22 08:00 05/29/22 11:02 36.5 C 66 18 122/71 97 Room Air 05/29/22 07:35 36.7 C 67 18 101/63 92 Room Air O2 Del Method 05/29/22 08:00 05/29/22 08:00 Room Air 05/29/22 11:02 05/29/22 07:35 all noted and reviewed including below
[2022-05-29] MEDS: BACITRACIN OPL SCH (20:01)
[2022-05-29] MEDS: [UNRECOGNIZED DRUG - OTHER] OPL SCH (20:01)
[2022-05-29] MEDS: OLANZapine ZYDIS 5 MG ORALLY DIS. TAB PO SCH (20:04)
[2022-05-29] MEDS: lamoTRIgine 100 MG TAB PO SCH (20:05)
[2022-05-29] MEDS: DOCUSATE SODIUM/SENNA 50/8.6MG TAB PO SCH (20:09)
[2022-05-29] MEDS: LACTOBACILLUS ACIDOPHILUS 1 GM PACK PEG SCH (20:15)
[2022-05-30] MEDS: CEFEPIME 2,000 MG in SYRINGE 0 ML IV SCH ×3 (01:27→16:53)
[2022-05-30] MEDS: TUBE FEEDING WATER FLUSH GT SCH ×4 (01:43→20:06)
[2022-05-30] MEDS: LEVOTHYROXINE SODIUM 75 MCG TABLET GT SCH (05:38)
[2022-05-30] MEDS: HEPARIN SOD 5,000 UNIT/0.5 ML VIAL SQ SCH ×3 (05:39→21:21)
[2022-05-30] MEDS: FIBERSOURCE HN 1.2 CAL 1000 ML BAG GT SCH (08:05)
[2022-05-30] MEDS: ESCITALOPRAM OXALATE 10 MG TAB PO SCH (08:54)
[2022-05-30] MEDS: PSYLLIUM or GUAR GUM FIBER POWDER PACKET PO SCH ×2 (08:54→21:24)
[2022-05-30] MEDS: FAMOTIDINE 20 MG TAB JT SCH ×2 (08:54→21:24)
[2022-05-30] MEDS: LORATADINE 1 MG/1 ML GT SCH (08:54)
[2022-05-30] MEDS: lamoTRIgine 25 MG TAB PO SCH (08:54)
[2022-05-30] MEDS: POLYETHYLENE (MIRALAX) 17 GM PACK PEG SCH (08:54)
[2022-05-30] MEDS: CHOLECALCIFEROL 1,000 UNITS 25 MCG TAB GT SCH (08:55)
[2022-05-30] MEDS: ENTECAVIR 0.05 MG/ML PEG SCH (08:55)
[2022-05-30] MEDS: LACTOBACILLUS ACIDOPHILUS 1 GM PACK PEG SCH ×2 (08:55→21:25)
[2022-05-30] MEDS: CICLOPIROX~ORDER AWAITING ACTION SCH ×2 (09:15→13:59)
[2022-05-30] MEDS: DOXYCYCLINE SUSP 25 MG/5 ML 60ML GT SCH ×2 (10:41→21:22)
--- NOTE | 2022-05-30 16:31 | Hospitalist Progress Note ---
Date of Service May 30, 2022 Assessment & Plan (1) Acute respiratory failure with hypoxia: (2) Pneumonia: (3) Down syndrome: (4) Dysphagia: (5) Constipation: (6) Seizure disorder: (7) Hepatitis B carrier: (8) Hypothyroidism: Plan Per Dr. Tariq's notes with addendum: This is a 63-year-old male resident of [facility] with PMH of intellectual disability secondary to Down syndrome, hypothyroidism, severe dysphagia, hep B carrier, leukopenia and schizophrenia who presents with shortness of breath and hypoxia from clinic and is found to have acute hypoxic respiratory failure in setting of pneumonia. Acute respiratory failure with hypoxia Pneumonia Ongoing respiratory illness, has been seen by ER and outpatient providers with multiple antibiotics in the past few months No leukocytosis, procal negative CXR withleft basilar consolidation. Correlate clinically for evidence of pneumonia/aspiration pneumonitis. Mild opacities are also seen in the right lung base. This could represent atelectasis versus pneumonia. Continue empiric tx with Unasyn, vanco Chest percussive therapy, added Mucinex, supplemental oxygen via mask 05/27 Remains on 3 L of oxygen via OxiMax Sputum culture: Pseudomonas Blood cultures: Negative so far 05/28 Weaned off oxygen today Repeat chest x-ray: Improving infiltrates Continue cefepime day #2 Doxycycline day #3 05/29 Remains stable off oxygen supplement Continue cefepime day #3, doxycycline day #4 Continue tube feedings , oracle ebs developer on board 05/30 Currently back on oxygen mask 1 to 2 L Otherwise stable Continue cefepime day #4, doxycycline day no. 5 Probiotics Continue tube feedings Had BM today Milk of magnesia, Dulcolax suppository as needed ordered for constipation Intellectual disability 2/2 Down syndrome Minimally verbal at baseline Resides at [facility] Severe dysphagia History of PEG placement PEG placed in 2013. Severe dysphagia- strict NPO Osmolite feedings non-formulary - pharmacy and oracle ebs developer on board Constipation Positive BM KUB: Showing large amounts of stool Management per above Seizure disorder Continue lamotrigine Hepatitis B Continue baraclude Hypothyroidism Continue levothyroxine DVT Ppx: SQ heparin Code status: FULL - need to clarify code with edi specialist Mr Montenegro during daylight hours at [phone]. No family is involved in patient's care. PCP: [place]gram Dispo: Anticipate return to [facility] when medically stable Admission and Anticipated Discharge Date Admission Date: May 25, 2022 Subjective Follow-up for pneumonia, bilateral, hypoxia, etc. Seen resting in bed, sleeping Not in distress On 2 L of oxygen mask Discussed with patient's RN Tolerating tube feedings well Positive BM No other issues next Review of Systems Review of Systems: all noted and negative except for above Physical Exam Physical Exam: General-sleeping, not in distress, no accessory muscle use Eyes- anicteric Neck- no JVD Lungs-positive mild rhonchi anteriorly bilaterally No wheezing Heart- normal rate, regular rhythm; no murmurs Abdomen- normal bowel sounds, nondistended, soft, nontender Extremities- no pretibial edema, no calf tenderness Neuro-patient is sleeping Skin- warm & dry Results & Data Results & Data ([facility]) Vital Signs (Past 12 Hours) Vital Signs Temp Pulse Pulse Pulse Resp BP BP 05/30/22 15:54 68 05/30/22 15:45 63 20 05/30/22 15:09 36.7 C 64 17 110/71 05/30/22 08:30 63 05/30/22 08:30 05/30/22 10:45 36.6 C 66 16 114/77 05/30/22 07:20 36.7 C 63 17 98/64 L 05/30/22 07:17 36.5 C 66 18 102/63 05/30/22 07:05 67 16 Pulse Ox O2 Del Method O2 Flow Rate 05/30/22 15:54 05/30/22 15:45 91 Oxymask 1 05/30/22 15:09 95 Oxymask 2 05/30/22 08:30 05/30/22 08:30 Oxymask 2 05/30/22 10:45 95 Oxymask 2 05/30/22 07:20 91 Oxymask 2 05/30/22 07:17 93 Room Air 05/30/22 07:05 94 Room Air all noted and reviewed including below
[2022-05-30] MEDS: lamoTRIgine 100 MG TAB PO SCH (21:22)
[2022-05-30] MEDS: OLANZapine ZYDIS 5 MG ORALLY DIS. TAB PO SCH (21:24)
[2022-05-30] MEDS: BACITRACIN OPL SCH (21:25)
[2022-05-30] MEDS: [UNRECOGNIZED DRUG - OTHER] OPL SCH (21:25)
[2022-05-30] MEDS: DOCUSATE SODIUM/SENNA 50/8.6MG TAB PO SCH (21:25)
[2022-05-31] MEDS: CICLOPIROX~ORDER AWAITING ACTION SCH ×4 (01:54→23:42)
[2022-05-31] MEDS: TUBE FEEDING WATER FLUSH GT SCH ×4 (01:54→20:31)
[2022-05-31] MEDS: CEFEPIME 2,000 MG in SYRINGE 0 ML IV SCH ×3 (01:54→20:34)
[2022-05-31] MEDS: LEVOTHYROXINE SODIUM 75 MCG TABLET GT SCH (05:42)
[2022-05-31] MEDS: HEPARIN SOD 5,000 UNIT/0.5 ML VIAL SQ SCH ×3 (05:43→20:34)
[2022-05-31] MEDS: lamoTRIgine 25 MG TAB PO SCH (09:20)
[2022-05-31] MEDS: LACTOBACILLUS ACIDOPHILUS 1 GM PACK PEG SCH ×2 (09:20→20:31)
[2022-05-31] MEDS: ESCITALOPRAM OXALATE 10 MG TAB PO SCH (09:20)
[2022-05-31] MEDS: POLYETHYLENE (MIRALAX) 17 GM PACK PEG SCH (09:21)
[2022-05-31] MEDS: LORATADINE 1 MG/1 ML GT SCH (09:21)
[2022-05-31] MEDS: FAMOTIDINE 20 MG TAB JT SCH ×2 (09:22→20:30)
[2022-05-31] MEDS: DOXYCYCLINE SUSP 25 MG/5 ML 60ML GT SCH ×2 (09:22→20:29)
[2022-05-31] MEDS: CHOLECALCIFEROL 1,000 UNITS 25 MCG TAB GT SCH (09:22)
[2022-05-31] MEDS: PSYLLIUM or GUAR GUM FIBER POWDER PACKET PO SCH ×2 (09:23→20:31)
[2022-05-31] MEDS: ENTECAVIR 0.05 MG/ML PEG SCH (09:23)
[2022-05-31 09:53] LABS: Basophils # (auto) 0.06 K/uL (0-0.2); Basophils % (auto) 1.2 %; Eosinophils # (auto) 0.24 K/uL (0-0.50); Eosinophils % (auto) 4.7 %; Hemoglobin 12.8 g/dl (14.0-18.0); Immature Granulocytes # (auto) 0.16 K/uL (0.00-0.02); Immature Granulocytes % (auto) 3.1 %; Lymphocytes # (auto) 2.51 K/uL (1.2-3.4); Lymphocytes % (auto) 48.7 %; Mean Corpuscular Hemoglobin 33.1 pg (25.0-34.0); Mean Corpuscular Hgb Conc 33.7 g/dL (32.0-36.0); Mean Corpuscular Volume 98.2 fL (80.0-100.0); Mean Platelet Volume 10.4 fL (9.4-12.4); Monocytes # (auto) 0.67 K/uL (0.24-0.82); Neutrophils # (auto) 1.51 K/uL (1.4-6.5); Neutrophils % (auto) 29.3 %; Platelet Count 153 K/uL (130-400); RDW Coefficient of Variation 12.8 % (11.5-14.5); RDW Standard Deviation 45.5 fL (36.4-46.3); Red Blood Count 3.87 M/uL (4.63-6.08); White Blood Count 5.15 K/ul (4.8-10.8)
[2022-05-31 10:20] LABS: BUN Creatinine Ratio 21.4 (10-20); Calcium 9.9 mg/dl (8.5-10.1); Creatinine Clr Calc Pharmacy 50.4 ml/min; Est GFR (African American) 67.2 ml/min; Est GFR (Non-African American) 57.9 ml/min; Potassium 4.5 mmol/L (3.5-5.1)
--- NOTE | 2022-05-31 16:50 | Hospitalist Progress Note ---
Date of Service May 31, 2022 Assessment & Plan (1) Acute respiratory failure with hypoxia: (2) Pneumonia: (3) Down syndrome: (4) Dysphagia: (5) Constipation: (6) Seizure disorder: (7) Hepatitis B carrier: (8) Hypothyroidism: Plan Per Dr. Tariq's notes with addendum: This is a 63-year-old male resident of [facility] with PMH of intellectual disability secondary to Down syndrome, hypothyroidism, severe dysphagia, hep B carrier, leukopenia and schizophrenia who presents with shortness of breath and hypoxia from clinic and is found to have acute hypoxic respiratory failure in setting of pneumonia. Acute respiratory failure with hypoxia Pneumonia Ongoing respiratory illness, has been seen by ER and outpatient providers with multiple antibiotics in the past few months No leukocytosis, procal negative CXR withleft basilar consolidation. Correlate clinically for evidence of pneumonia/aspiration pneumonitis. Mild opacities are also seen in the right lung base. This could represent atelectasis versus pneumonia. Continue empiric tx with Unasyn, vanco Chest percussive therapy, added Mucinex, supplemental oxygen via mask 05/27 Remains on 3 L of oxygen via OxiMax Sputum culture: Pseudomonas Blood cultures: Negative so far 05/28 Weaned off oxygen today Repeat chest x-ray: Improving infiltrates Continue cefepime day #2 Doxycycline day #3 05/29 Remains stable off oxygen supplement Continue cefepime day #3, doxycycline day #4 Continue tube feedings , unix consultant on board 05/30 Currently back on oxygen mask 1 to 2 L Otherwise stable Continue cefepime day #4, doxycycline day no. 5 Probiotics Continue tube feedings 05/31 Weaned off oxygen supplement today Remains stable overall Continue cefepime day #5/7, doxycycline day number 6 out of 7 Had BMs today Milk of magnesia, Dulcolax suppository as needed ordered for constipation Intellectual disability 2/2 Down syndrome Minimally verbal at baseline Resides at [facility] Severe dysphagia History of PEG placement PEG placed in 2013. Severe dysphagia- strict NPO Osmolite feedings non-formulary - pharmacy and unix consultant on board Constipation Positive BM KUB: Showing large amounts of stool Management per above Seizure disorder Continue lamotrigine Hepatitis B Continue baraclude Hypothyroidism Continue levothyroxine DVT Ppx: SQ heparin Code status: FULL - need to clarify code with computer network support specialist Mr Montenegro during daylight hours at [phone]. No family is involved in patient's care. PCP: Douglas Dispo: Anticipate return to long-term when medically stable Admission and Anticipated Discharge Date Admission Date: May 25, 2022 Subjective Follow-up for bilateral pneumonia, etc. Seen resting in bed Awake and alert, watching TV Turns to examiner when name is called Follows simple commands including opening his mouth, stick out his tongue No signs of distress, pain Patient's caregiver at the bedside visiting States patient appears better compared to admission Off oxygen supplement today Positive BMs No problems with tube feedings per RN No other issues per apartment locator of Systems Review of Systems: all noted and negative except for above Physical Exam Physical Exam: General-awake and alert, nonverbal, not in distress Eyes- anicteric Neck- no JVD Lungs-faint rhonchi anteriorly bilaterally No wheezing Heart- normal rate, regular rhythm; no murmurs Abdomen- normal bowel sounds, nondistended, soft, nontender Extremities- no pretibial edema, no calf tenderness Neuro-no new gross focal neurologic deficit Skin- warm & dry Results & Data Results & Data ([facility]) Vital Signs (Past 12 Hours) Vital Signs Temp Pulse Pulse Resp BP Pulse Ox O2 Del Method 05/31/22 15:34 36.5 C 70 18 103/65 90 Room Air 05/31/22 11:55 36.3 C L 69 19 103/68 98 Oxymask 05/31/22 10:40 62 05/31/22 08:00 Oxymask 05/31/22 07:49 36.4 C L 67 18 103/68 95 Oxymask O2 Flow Rate 05/31/22 15:34 05/31/22 11:55 3 05/31/22 10:40 05/31/22 08:00 3 05/31/22 07:49 3 all noted and reviewed including below
[2022-05-31] MEDS: lamoTRIgine 100 MG TAB PO SCH (20:28)
[2022-05-31] MEDS: OLANZapine ZYDIS 5 MG ORALLY DIS. TAB PO SCH (20:29)
[2022-05-31] MEDS: DOCUSATE SODIUM/SENNA 50/8.6MG TAB PO SCH (20:30)
[2022-05-31] MEDS: [UNRECOGNIZED DRUG - OTHER] OPL SCH (20:31)
[2022-05-31] MEDS: BACITRACIN OPL SCH (20:31)
[2022-06-01] MEDS: TUBE FEEDING WATER FLUSH GT SCH ×4 (01:48→20:03)
[2022-06-01] MEDS: HEPARIN SOD 5,000 UNIT/0.5 ML VIAL SQ SCH ×3 (05:55→20:03)
[2022-06-01] MEDS: LEVOTHYROXINE SODIUM 75 MCG TABLET GT SCH (05:55)
[2022-06-01] MEDS: CICLOPIROX~ORDER AWAITING ACTION SCH ×2 (07:24→15:53)
[2022-06-01] MEDS: POLYETHYLENE (MIRALAX) 17 GM PACK PEG SCH (09:28)
[2022-06-01] MEDS: CEFEPIME 2,000 MG in SYRINGE 0 ML IV SCH ×2 (09:28→20:26)
[2022-06-01] MEDS: PSYLLIUM or GUAR GUM FIBER POWDER PACKET PO SCH ×2 (09:29→20:05)
[2022-06-01] MEDS: LORATADINE 1 MG/1 ML GT SCH (09:29)
[2022-06-01] MEDS: FAMOTIDINE 20 MG TAB JT SCH ×2 (09:30→20:04)
[2022-06-01] MEDS: CHOLECALCIFEROL 1,000 UNITS 25 MCG TAB GT SCH (09:30)
[2022-06-01] MEDS: ESCITALOPRAM OXALATE 10 MG TAB PO SCH (09:30)
[2022-06-01] MEDS: lamoTRIgine 25 MG TAB PO SCH (09:30)
[2022-06-01] MEDS: DOXYCYCLINE SUSP 25 MG/5 ML 60ML GT SCH ×2 (09:30→20:05)
[2022-06-01] MEDS: ENTECAVIR 0.05 MG/ML PEG SCH (09:31)
[2022-06-01] MEDS: LACTOBACILLUS ACIDOPHILUS 1 GM PACK PEG SCH ×2 (09:31→20:05)
[2022-06-01 11:16] LABS: Creatinine Clr Calc Pharmacy 45.2 ml/min; Est GFR (African American) 59.4 ml/min; Est GFR (Non-African American) 51.2 ml/min
--- NOTE | 2022-06-01 15:45 | Hospitalist Progress Note ---
Date of Service June 01, 2022 Assessment & Plan (1) Acute respiratory failure with hypoxia: (2) Pneumonia: (3) Down syndrome: (4) Dysphagia: (5) Constipation: (6) Seizure disorder: (7) Hepatitis B carrier: (8) Hypothyroidism: Plan Per Dr. Tariq's notes with addendum: This is a 63-year-old male resident of [facility] with PMH of intellectual disability secondary to Down syndrome, hypothyroidism, severe dysphagia, hep B carrier, leukopenia and schizophrenia who presents with shortness of breath and hypoxia from clinic and is found to have acute hypoxic respiratory failure in setting of pneumonia. Acute respiratory failure with hypoxia Bilateral pneumonia, Pseudomonas Ongoing respiratory illness, has been seen by ER and outpatient providers with multiple antibiotics in the past few months No leukocytosis, procal negative CXR withleft basilar consolidation. Correlate clinically for evidence of pneumonia/aspiration pneumonitis. Mild opacities are also seen in the right lung base. This could represent atelectasis versus pneumonia. Continue empiric tx with Unasyn, vanco Chest percussive therapy, added Mucinex, supplemental oxygen via mask Sputum culture: Pseudomonas Blood cultures: Negative Clinically improving Weaned off oxygen supplement x2 days Remains stable overall Continue cefepime day #6/7, doxycycline day number 7 out of 7 Had BMs today Milk of magnesia, Dulcolax suppository as needed ordered for constipation Intellectual disability 2/2 Down syndrome Minimally verbal at baseline Resides at [facility] Severe dysphagia History of PEG placement PEG placed in 2013. Severe dysphagia- strict NPO Osmolite feedings non-formulary - pharmacy and supervisor waterproofing on board Constipation Admission KUB: Showing large amounts of stool Positive BMs Continue bowel regimen Seizure disorder Continue lamotrigine Hepatitis B Continue baraclude Hypothyroidism Continue levothyroxine DVT Ppx: SQ heparin Code status: FULL - need to clarify code with search engine optimization specialist Mr Montenegro during daylight hours at [phone]. No family is involved in patient's care. PCP: [place] Dispo: PT and OT evaluation pending Per caregiver, patient was able to walk around with a walker at the [facility] May need to transition to [facility] Admission and Anticipated Discharge Date Admission Date: May 25, 2022 Subjective Follow-up for bilateral pneumonia, with hypoxia, etc. Seen resting in bed, awake and alert, watching TV Able to turn to examiner when name is called Per RN, patient follows simple commands including hand bread wrapper Not in distress, no signs of pain No problems with tube feeding Positive BMs No Other issues Review of Systems Review of Systems: all noted and negative except for above Physical Exam Physical Exam: General- oriented x 3, not in distress, speaks in sentences with no effort or accessory muscle use Eyes- anicteric Neck- no JVD Lungs-very mild rhonchi anteriorly No wheezing Heart- normal rate, regular rhythm; no murmurs Abdomen- normal bowel sounds, nondistended, soft, nontender PEG tube in place-minimal erythema around the PEG tube insertion site No signs of infection Extremities- no pretibial edema, no calf tenderness Neuro- alert, oriented x 3; no gross focal neurologic deficits Skin- warm & dry Results & Data Results & Data ([facility]) Vital Signs (Past 12 Hours) Vital Signs Temp Pulse Pulse Resp BP BP Pulse Ox 06/01/22 15:17 36.5 C 73 18 102/61 93 06/01/22 11:53 36.6 C 71 18 110/69 95 06/01/22 07:00 69 06/01/22 07:00 06/01/22 07:10 36.7 C 68 16 98/65 L 91 06/01/22 03:55 36.4 C L 61 18 95/65 L 96 O2 Del Method 06/01/22 15:17 Room Air 06/01/22 11:53 Room Air 06/01/22 07:00 06/01/22 07:00 Room Air 06/01/22 07:10 Room Air 06/01/22 03:55 Room Air all noted and reviewed including below
[2022-06-01] MEDS: lamoTRIgine 100 MG TAB PO SCH (20:04)
[2022-06-01] MEDS: DOCUSATE SODIUM/SENNA 50/8.6MG TAB PO SCH (20:04)
[2022-06-01] MEDS: OLANZapine ZYDIS 5 MG ORALLY DIS. TAB PO SCH (20:05)
[2022-06-01] MEDS: BACITRACIN OPL SCH (20:06)
[2022-06-01] MEDS: [UNRECOGNIZED DRUG - OTHER] OPL SCH (20:06)
[2022-06-01] MEDS: FIBERSOURCE HN 1.2 CAL 1000 ML BAG GT SCH (20:34)
[2022-06-02] MEDS: CICLOPIROX~ORDER AWAITING ACTION SCH ×4 (00:03→23:17)
[2022-06-02] MEDS: TUBE FEEDING WATER FLUSH GT SCH ×5 (03:04→20:08)
[2022-06-02] MEDS: LEVOTHYROXINE SODIUM 75 MCG TABLET GT SCH (05:23)
[2022-06-02] MEDS: HEPARIN SOD 5,000 UNIT/0.5 ML VIAL SQ SCH ×3 (05:23→23:11)
[2022-06-02 06:36] LABS: Creatinine Clr Calc Pharmacy 40.5 ml/min; Est GFR (African American) 51.9 ml/min; Est GFR (Non-African American) 44.8 ml/min
[2022-06-02] MEDS: CEFEPIME 2,000 MG in SYRINGE 0 ML IV SCH ×2 (09:12→22:05)
[2022-06-02] MEDS: ESCITALOPRAM OXALATE 10 MG TAB PO SCH (09:13)
[2022-06-02] MEDS: FAMOTIDINE 20 MG TAB JT SCH ×2 (09:13→20:11)
[2022-06-02] MEDS: PSYLLIUM or GUAR GUM FIBER POWDER PACKET PO SCH ×2 (09:13→20:12)
[2022-06-02] MEDS: LACTOBACILLUS ACIDOPHILUS 1 GM PACK PEG SCH ×2 (09:14→20:11)
[2022-06-02] MEDS: CHOLECALCIFEROL 1,000 UNITS 25 MCG TAB GT SCH (09:14)
[2022-06-02] MEDS: lamoTRIgine 25 MG TAB PO SCH (09:14)
[2022-06-02] MEDS: DOXYCYCLINE SUSP 25 MG/5 ML 60ML GT SCH (09:14)
[2022-06-02] MEDS: LORATADINE 1 MG/1 ML GT SCH (09:14)
[2022-06-02] MEDS: POLYETHYLENE (MIRALAX) 17 GM PACK PEG SCH (09:15)
[2022-06-02] MEDS: ENTECAVIR 0.05 MG/ML PEG SCH (09:16)
--- NOTE | 2022-06-02 14:36 | Hospitalist Progress Note ---
Date of Service June 02, 2022 Assessment & Plan (1) NOAM (acute kidney injury): Plan: - likely prerenal - Cr slowling increasing 1.00-->1.3-->1.6 - will get urine studies - start on LR at 80cc/hr for now - will monitor UOP - trend Cr (2) Acute respiratory failure with hypoxia: Plan: - likely secondary to bilateral pneumonia on imaging - sputum culture growing pseudomonas - weaned of oxygen, now on RA - s/p 7 days of doxycycline and cefepime - pending placement to rehab (3) Pneumonia: Plan: - see above (4) Down syndrome: Plan: - noted (5) Dysphagia: Plan: - PEG in place - continue TFs (6) Constipation: Plan: - continue bowel regimen (7) Seizure disorder: Plan: - continue home AEDs (8) Hepatitis B carrier: Plan: - noted (9) Hypothyroidism: Plan: - continue levothyroxine Plan DVT Ppx: SQ heparin Code status: FULL - need to clarify code with payer specialist Mr Montenegro during daylight hours at [phone]. No family is involved in patient's care. PCP: Douglas Dispo: med/surg - pending placement to rehab Armin James MD [facility] Medicine Admission and Anticipated Discharge Date Admission Date: May 25, 2022 Subjective Patient with downs syndrome from [facility], hypothyroidism, dysphagia s/p PEG, chronic hep B carrier presented with worsening shortness of breath, found to have bilateral pneumonia, sputum culture growing Pseudomonas. Started on cefepime with improvement. Now pending placement to rehab. Patient does not answer many questions but when he did answer, he denied pain, shortness of breath. Review of Systems Review of Systems: Unobtainable due to cognitive status Physical Exam Physical Exam: General- unable to assess orientation but awake and alert, not in distress Eyes- anicteric Neck- no JVD Lungs-very mild rhonchi anteriorly, likely transmitted upper airway sounds No wheezing Heart- normal rate, regular rhythm; no murmurs Abdomen- normal bowel sounds, nondistended, soft, nontender PEG tube in place-minimal erythema around the PEG tube insertion site No signs of infection Extremities- no pretibial edema, no calf tenderness Neuro- awake and alert; no gross focal neurologic deficits Skin- warm & dry Results & Data Results & Data ([place]) Vital Signs (Past 12 Hours) Vital Signs Temp Pulse Pulse Resp BP BP Pulse Ox 06/02/22 11:29 35.9 C L 63 14 91/52 L 95 06/02/22 08:00 06/02/22 07:57 36.1 C L 62 14 99/67 L 97 06/02/22 05:45 36.7 C 06/02/22 03:04 36.3 C L 66 18 109/63 96 O2 Del Method 06/02/22 11:29 Room Air 06/02/22 08:00 Room Air 06/02/22 07:57 Room Air 06/02/22 05:45 06/02/22 03:04 Room Air Diagnostic Findings Laboratory Results WBC 5.15 K/ul (4.8-10.8) 05/31/22 09: RBC 3.87 M/uL (4.63-6.08) L 05/31/22 09:26 Hgb 12.8 g/dl (14.0-18.0) L 05/31/22 09: Hct 38.0 % (40.1-51.0) L 05/31/22 09:26 MCV 98.2 fL (80.0-100.0) 05/31/22 09: MCH 33.1 pg (25.0-34.0) 05/31/22 09: MCHC 33.7 g/dL (32.0-36.0) 05/31/22 09:26 RDW Std Deviation 45.5 fL (36.4-46.3) 05/31/22 09: RDW Coeff of Tina 12.8 % (11.5-14.5) 05/31/22 09: Plt Count 153 K/uL (130-400) 05/31/22 09:26 MPV 10.4 fL (9.4-12.4) 05/31/22 09: Immature Gran % (Auto) 3.1 % 05/31/22 09: Neut % (Auto) 29.3 % 05/31/22 09: Lymph % (Auto) 48.7 % 05/31/22 09: [place] % (Auto) 13.0 % 05/31/22 09: Eos % (Auto) 4.7 % 05/31/22 09:26 Baso % (Auto) 1.2 % 05/31/22 09:26 Neut # (Auto) 1.51 K/uL (1.4-6.5) 05/31/22 09:26 Lymph # (Auto) 2.51 K/uL (1.2-3.4) 05/31/22 09:26 [place] # (Auto) 0.67 K/uL (0.24-0.82) 05/31/22 09:26 Eos # (Auto) 0.24 K/uL (0-0.50) 05/31/22 09:26 Baso # (Auto) 0.06 K/uL (0-0.2) 05/31/22 09:26 Immature Gran # (Auto) 0.16 K/uL (0.00-0.02) H 05/31/22 09:26 PT 10.5 Seconds (9.0-12.0) 05/25/22 14:50 INR 1.0 (0.9-1.1) 05/25/22 14:50 ABG pH 7.47 (7.35-7.45) H 05/25/22 14:50 ABG pCO2 38 mmHg (35-46) 05/25/22 14:50 ABG pO2 184 mmHg (80-95) H 05/25/22 14:50 ABG HCO3 28 mmol/L (19-24) H 05/25/22 14:50 ABG O2 Saturation > 100.0 % (90-95) H 05/25/22 14:50 ABG Base Excess 3.9 mEq/L (-9-1.8) H 05/25/22 14:50 Humberto Test Pos (Pos) 05/25/22 14:50 Oxygen Given 10L 05/25/22 14:50 Sodium 137 mmol/L (136-145) 05/31/22 09:26 Potassium 4.5 mmol/L (3.5-5.1) 05/31/22 09:26 Chloride 102 mmol/L (98-107) 05/31/22 09:26 Carbon Dioxide 31 mmol/L (21-32) 05/31/22 09:26 Anion Gap 4 (3-11) 05/31/22 09:26 BUN 28 mg/dl (6-23) H 05/31/22 09:26 Creatinine 1.62 mg/dl (0.6-1.4) H 06/02/22 05:47 Est Cr Clr Drug Dosing 40.5 ml/min 06/02/22 05:47 Est GFR ( Amer) 51.9 ml/min 06/02/22 05:47 Est GFR (Non-Af Amer) 44.8 ml/min 06/02/22 05:47 BUN/Creatinine Ratio 21.4 (10-20) H 05/31/22 09:26 Glucose 101 mg/dl (70-99(Fasting)) H 05/31/22 09:26 POC Glucose 98 mg/dl (70-99) 05/26/22 23:14 Calcium 9.9 mg/dl (8.5-10.1) 05/31/22 09:26 Magnesium 2.5 mg/dl (1.7-2.4) H 05/25/22 13:50 Total Bilirubin 0.3 mg/dl (0.2-1.0) 05/25/22 13:50 AST 29 U/L (13-39) 05/25/22 13:50 ALT 13 U/L (7-52) 05/25/22 13:50 Alkaline Phosphatase 97 U/L (34-104) 05/25/22 13:50 Troponin I High Sens 5.2 pg/ml (0-20) 05/25/22 13:50 B-Natriuretic Peptide 90 pg/ml (0-100) 05/26/22 06:19 Total Protein 7.3 gm/dl (6.0-8.3) 05/25/22 13:50 Albumin 3.4 gm/dl (3.4-5.0) 05/25/22 13:50 Globulin 3.9 gm/dl (2.5-4.0) 05/25/22 13:50 Albumin/Globulin Ratio 0.9 (0.9-2) 05/25/22 13:50 Procalcitonin < 0.05 ng/ml (0-0.5) 05/25/22 13:50 TSH 6.907 uIu/ml (0.300-4.500) H 05/28/22 08:54 Free T4 0.87 ng/dl (0.61-1.60) 05/28/22 08:54 Urine Color Yellow 05/25/22 15:50 Urine Appearance Clear (Clear) 05/25/22 15:50 Urine pH 8.0 (4.5-7.5) H 05/25/22 15:50 Ur Specific [place] 1.007 (1.000-1.030) 05/25/22 15:50 Urine Protein Negative (Negative) 05/25/22 15:50 Urine Glucose (UA) Negative (Negative) 05/25/22 15:50 Urine Ketones Negative (Negative) 05/25/22 15:50 Urine Blood Negative (Negative) 05/25/22 15:50 Urine Nitrite Negative (Negative) 05/25/22 15:50 Urine Bilirubin Negative (Negative) 05/25/22 15:50 Urine Urobilinogen Negative (Negative) 05/25/22 15:50 Ur Leukocyte Esterase Negative (Negative) 05/25/22 15:50 Nasal Screen MRSA (PCR) Negative (Negative) 05/25/22 14:42 SARS-CoV-2 (PCR) NEGATIVE (Negative) 05/25/22 14:42 Hepatitis C Ab (EIA) NON-REACTIVE (NON-REACTIVE) 05/26/22 06:19 Hep C Ab Signal/Cutoff 0.05 (<1.00) 05/26/22 06:19 Influenza Type A (PCR) Negative (Neg) 05/25/22 14:42 Influenza Type B (PCR) Negative (Neg) 05/25/22 14:42 RSV (RT-PCR) Negative (Neg) 05/25/22 14:42 Impressions KUB X-Ray 05/25/22 20:02 KUB HISTORY: eval for constipation COMPARISON: KUB 02/25/2014. FINDINGS: Postoperative changes again noted within the left hip. Moderate to large amount of well-formed stool seen throughout the colon. No dilated loops of bowel to suggest an obstruction. No renal calculi. No ureteral calculi. Calcifications in the deep pelvis likely represent phleboliths. A gastrostomy tube is again noted within the epigastric region. No pneumoperitoneum or pneumatosis. IMPRESSION: Moderate to large amount of well-formed stool seen throughout the colon. ACT 112: Negative or not required by law. Electronically signed by: Juan Moon M.D. 05/25/2022 8:38 PM Chest X-Ray 05/28/22 08:41 XR chest 1V portable HISTORY: Follow up pneumonia. COMPARISON: Chest 05/25/2022. FINDINGS: No pneumothorax. There are low lung volumes. The heart is normal in size. Mild diffuse interstitial thickening again noted. Bibasilar opacities most pronounced on the left have improved. The upper lung zones remain clear.. IMPRESSION: Interval improvement in the patchy bibasilar densities most pronounced on the left. ACT 112: Negative or not required by law. Electronically signed by: Juan Moon M.D. 05/28/2022 10:48 AM Medications Administered Current Inpatient Medications Acetaminophen (Acetaminophen Susp 500 Mg/15.6 Ml Udp) 1,000 mg PO Q6H PRN PRN Reason: Pain or Fever Stop: 06/24/22 21:28 Albuterol (Albuterol 0.083% Nebu Soln 3 Ml Vial) 2.5 mg INH Q6H PRN; Protocol PRN Reason: ASTHMA Stop: 06/24/22 20:00 Bacitracin/Polymyxin B Sulfate (Bacitracin/Polymyx B Oph Oint 3.5 Gm Tube: Patient's Own Med) 1 appln OPL HS YUMIKO Stop: 06/25/22 20:59 Last Admin: 06/01/22 20:06 Dose: 1 appln Bisacodyl (Bisacodyl 10 Mg Supp) 10 mg HI DAILY PRN PRN Reason: Q4 DAYS IF MOM NO RESULTS. Stop: 06/24/22 20:00 Bisacodyl (Bisacodyl 10 Mg Supp) 10 mg HI ONE PRN PRN Reason: constipation Stop: 06/25/22 16:42 Calamine/Phenol (Menthol-Zinc Oxide 360 Appln/120 Gm Tube) 1 appln EXT QS PRN PRN Reason: PREVENT SORES ON BUTTOCKS Stop: 06/24/22 21:29 Entecavir (Entecavir 0.05 Mg/Ml Solution) 0.5 mg PEG DAILY YUMIKO Stop: 06/25/22 16:59 Last Admin: 06/02/22 09:16 Dose: 0.5 mg Enteral Nutritional Formula (Fibersource Hn 1.2 Jamie 1000 Ml Bag) 1,000 ml GT UD YUMIKO; Protocol Stop: 06/25/22 13:59 Last Admin: 06/01/22 20:34 Dose: 1,000 ml Escitalopram Oxalate (Escitalopram Oxalate 10 Mg Tab) 10 mg PO QAM YUMIKO Stop: 06/25/22 08:59 Last Admin: 06/02/22 09:13 Dose: 10 mg Famotidine (Famotidine 20 Mg Tab) 20 mg JT BID YUMIKO Stop: 06/24/22 20:59 Last Admin: 06/02/22 09:13 Dose: 20 mg Gentamicin Sulfate (Gentamicin Sulfate 0.3% Op Soln 5 Ml Btl) 1 drops OPB Q4H PRN PRN Reason: REDNESS Stop: 06/04/22 20:00 Last Admin: 05/27/22 07:48 Dose: 1 drops Guaifenesin/Dextromethorphan (Guaifenesin/Dextrom Syrup 200mg/20mg 10ml Udc) 10 ml GT Q4H PRN PRN Reason: Cough Stop: 06/24/22 21:23 Last Admin: 05/25/22 22:08 Dose: 10 ml Heparin Sodium (Porcine) (Heparin Sod 5,000 Unit/0.5 Ml Vial) 5,000 units SQ Q8 YUMIKO Stop: 06/24/22 21:59 Last Admin: 06/02/22 13:51 Dose: 5,000 units Cefepime HCl 2,000 mg/ Syringe 20 mls @ 5 mls/min IV Q12 YUMIKO; Protocol Stop: 06/03/22 08:59 Last Admin: 06/02/22 09:12 Dose: 5 mls/min Lactated Ringer's (Lr) 1,000 mls @ 80 mls/hr IV .[id number] YUMIKO Stop: 06/03/22 15:29 Lactobacillus Acidophilus (Lactobacillus Acidophilus 1 Gm Pack) 1 gm PEG BID YUMIKO Stop: 06/28/22 20:59 Last Admin: 06/02/22 09:14 Dose: 1 gm Lamotrigine (Lamotrigine 100 Mg Tab) 150 mg PO HS YUMIKO Stop: 06/24/22 20:59 Last Admin: 06/01/22 20:04 Dose: 150 mg Lamotrigine (Lamotrigine 25 Mg Tab) 50 mg PO QAM YUMIKO Stop: 06/25/22 08:59 Last Admin: 06/02/22 09:14 Dose: 50 mg Levothyroxine Sodium (Levothyroxine Sodium 75 Mcg Tablet) 75 mcg GT DAILYBB YUMIKO Stop: 06/25/22 06:29 Last Admin: 06/02/22 05:23 Dose: 75 mcg Loratadine (Loratadine 1 Mg/1 Ml) 10 mg GT QAM YUMIKO Stop: 06/25/22 08:59 Last Admin: 06/02/22 09:14 Dose: 10 mg Magnesium Hydroxide (Magnesium Hydroxide Susp 30 Ml Udc) 30 ml PO Q12H PRN PRN Reason: Constipation Stop: 06/24/22 18:59 Miscellaneous (Ciclopirox~Order Awaiting Action) 1 each N/A QS YUMIKO Stop: 06/25/22 07:59 Last Admin: 06/02/22 07:03 Dose: Not Given Olanzapine (Olanzapine Zydis 5 Mg Orally Dis. Tab) 5 mg PO HS YUMIKO Stop: 06/24/22 20:59 Last Admin: 06/01/22 20:05 Dose: 5 mg Ondansetron HCl (Ondansetron Inj 2 Mg/Ml 2 Ml Vial) 4 mg IV Q6H PRN PRN Reason: Nausea Stop: 06/24/22 18:59 Polyethylene Glycol (Polyethylene (Miralax) 17 Gm Pack) 17 gm PEG DAILY YUMIKO Stop: 06/25/22 08:59 Last Admin: 06/02/22 09:15 Dose: 17 gm Psyllium Hydrophilic Mucilloid (Psyllium Or Guar Gum Fiber Powder Packet) 1 pkt PO BID YUMIKO Stop: 06/25/22 08:59 Last Admin: 06/02/22 09:13 Dose: 1 pkt Senna/Docusate Sodium (Docusate Sodium/Senna 50/8.6mg Tab) 2 tab PO HS YUMIKO Stop: 06/24/22 20:59 Last Admin: 06/01/22 20:04 Dose: 2 tab Sterile Water (Tube Feeding Water Flush) 150 ml GT Q6H [facility] Stop: 06/25/22 13:59 Vitamin D (Cholecalciferol 1,000 Units 25 Mcg Tab) 1,000 units GT QAM [facility]UMIKO Stop: 06/25/22 08:59 Last Admin: 06/02/22 09:14 Dose: 1,000 units
[2022-06-02] MEDS: LACTATED RINGER'S 1,000 ML IV SCH (14:43)
[2022-06-02 15:39] LABS: BUN Creatinine Ratio 24.5 (10-20); Calcium 9.7 mg/dl (8.5-10.1); Creatinine Clr Calc Pharmacy 43.4 ml/min; Est GFR (African American) 56.6 ml/min; Est GFR (Non-African American) 48.8 ml/min; Potassium 4.5 mmol/L (3.5-5.1)
[2022-06-02 16:31] LABS: Appearance Urine Turbid (Clear); Bacteria Urine Automated Negative (Negative); Bilirubin Urine Negative (Negative); Blood Urine Negative (Negative); Color Urine Yellow; Epithelial Cell Urine Auto 0-5 /lpf (0-5); Glucose Urine UA Negative (Negative); Ketones Urine Negative (Negative); Leukocyte Esterase Urine Negative (Negative); Nitrite Urine Negative (Negative); Specific Gravity Urine 1.015 (1.000-1.030); Urobilinogen Urine Negative (Negative); WBC Urine Automated 0 /hpf (0-5); pH Urine 7.5 (4.5-7.5)
[2022-06-02 16:35] LABS: Protein Urine 1+ (Negative)
[2022-06-02 17:50] LABS: Creatinine Urine Random 55.4 mg/dl
[2022-06-02] MEDS: FIBERSOURCE HN 1.2 CAL 1000 ML BAG GT SCH (20:08)
[2022-06-02] MEDS: DOCUSATE SODIUM/SENNA 50/8.6MG TAB PO SCH (20:10)
[2022-06-02] MEDS: OLANZapine ZYDIS 5 MG ORALLY DIS. TAB PO SCH (20:12)
[2022-06-02] MEDS: BACITRACIN OPL SCH (23:10)
[2022-06-02] MEDS: lamoTRIgine 100 MG TAB PO SCH (23:10)
[2022-06-02] MEDS: [UNRECOGNIZED DRUG - OTHER] OPL SCH (23:10)
[2022-06-03] MEDS: TUBE FEEDING WATER FLUSH GT SCH ×5 (02:30→23:50)
[2022-06-03] MEDS: LACTATED RINGER'S 1,000 ML IV SCH (03:35)
[2022-06-03] MEDS: LEVOTHYROXINE SODIUM 75 MCG TABLET GT SCH (06:03)
[2022-06-03] MEDS: HEPARIN SOD 5,000 UNIT/0.5 ML VIAL SQ SCH ×3 (06:03→21:22)
[2022-06-03 08:12] LABS: BUN Creatinine Ratio 24.3 (10-20); Calcium 9.5 mg/dl (8.5-10.1); Creatinine Clr Calc Pharmacy 45.6 ml/min; Est GFR (African American) 59.9 ml/min; Est GFR (Non-African American) 51.7 ml/min; Magnesium 2.4 mg/dl (1.7-2.4); Phosphorus 4.1 mg/dl (2.5-4.9); Potassium 4.4 mmol/L (3.5-5.1)
[2022-06-03] MEDS: LORATADINE 1 MG/1 ML GT SCH (08:37)
[2022-06-03] MEDS: ESCITALOPRAM OXALATE 10 MG TAB PO SCH (08:38)
[2022-06-03] MEDS: POLYETHYLENE (MIRALAX) 17 GM PACK PEG SCH (08:38)
[2022-06-03] MEDS: PSYLLIUM or GUAR GUM FIBER POWDER PACKET PO SCH ×2 (08:39→21:11)
[2022-06-03] MEDS: lamoTRIgine 25 MG TAB PO SCH (08:39)
[2022-06-03] MEDS: CHOLECALCIFEROL 1,000 UNITS 25 MCG TAB GT SCH (08:39)
[2022-06-03] MEDS: FAMOTIDINE 20 MG TAB JT SCH ×2 (08:41→21:15)
[2022-06-03] MEDS: LACTOBACILLUS ACIDOPHILUS 1 GM PACK PEG SCH ×2 (08:41→21:07)
[2022-06-03] MEDS: CICLOPIROX~ORDER AWAITING ACTION SCH ×3 (09:14→23:50)
[2022-06-03] MEDS: ENTECAVIR 0.05 MG/ML PEG SCH ×2 (11:51→13:56)
--- NOTE | 2022-06-03 12:01 | Hospitalist Progress Note ---
Date of Service June 03, 2022 Assessment & Plan (1) NOAM (acute kidney injury): Plan: - likely prerenal - Cr slowling increasing 1.00-->1.3-->1.6 - will get urine studies - continue LR - will monitor UOP - trend Cr - improving (2) Acute respiratory failure with hypoxia: Plan: - likely secondary to bilateral pneumonia on imaging - sputum culture growing pseudomonas - weaned of oxygen, now on RA - s/p 7 days of doxycycline and cefepime - pending placement to rehab (3) Pneumonia: Plan: - see above (4) Down syndrome: Plan: - noted (5) Dysphagia: Plan: - PEG in place - continue TFs (6) Constipation: Plan: - continue bowel regimen (7) Seizure disorder: Plan: - continue home AEDs (8) Hepatitis B carrier: Plan: - noted (9) Hypothyroidism: Plan: - continue levothyroxine Plan DVT Ppx: SQ heparin Code status: FULL - need to clarify code with customer specialist Mr Montenegro during daylight hours at [phone]. No family is involved in patient's care. PCP: Douglas Dispo: med/surg - pending placement to rehab Armin James MD [facility] Medicine Admission and Anticipated Discharge Date Admission Date: May 25, 2022 Subjective Patient with downs syndrome from [facility], hypothyroidism, dysphagia s/p PEG, chronic hep B carrier presented with worsening shortness of breath, found to have bilateral pneumonia, sputum culture growing Pseudomonas. Started on cefepime with improvement. Now pending placement to rehab. Patient does not answer many questions but when he did answer, he denied pain, shortness of breath. Review of Systems Review of Systems: all noted and negative except for above Physical Exam Physical Exam: General- unable to assess orientation but awake and alert, not in distress Eyes- anicteric Neck- no JVD Lungs- lungs more clear to occultation with intermittent ronchi, No wheezing Heart- normal rate, regular rhythm; no murmurs Abdomen- normal bowel sounds, nondistended, soft, nontender PEG tube in place-minimal erythema around the PEG tube insertion site No signs of infection Extremities- no pretibial edema, no calf tenderness Neuro- awake and alert; no gross focal neurologic deficits Skin- warm & dry Results & Data Results & Data ([facility]) Vital Signs (Past 12 Hours) Vital Signs Temp Pulse Resp BP Pulse Ox O2 Del Method 06/03/22 07:22 Room Air 06/03/22 07:13 36.6 C 64 17 110/71 92 Room Air Diagnostic Findings Laboratory Results WBC 5.15 K/ul (4.8-10.8) 05/31/22 09:26 RBC 3.87 M/uL (4.63-6.08) L 05/31/22 09:26 Hgb 12.8 g/dl (14.0-18.0) L 05/31/22 09:26 Hct 38.0 % (40.1-51.0) L 05/31/22 09:26 MCV 98.2 fL (80.0-100.0) 05/31/22 09: MCH 33.1 pg (25.0-34.0) 05/31/22 09: MCHC 33.7 g/dL (32.0-36.0) 05/31/22 09:26 RDW Std Deviation 45.5 fL (36.4-46.3) 05/31/22 09: RDW Coeff of Tina 12.8 % (11.5-14.5) 05/31/22 09: Plt Count 153 K/uL (130-400) 05/31/22 09:26 MPV 10.4 fL (9.4-12.4) 05/31/22 09:26 Immature Gran % (Auto) 3.1 % 05/31/22 09: Neut % (Auto) 29.3 % 05/31/22 09: Lymph % (Auto) 48.7 % 05/31/22 09:26 [place] % (Auto) 13.0 % 05/31/22 09:26 Eos % (Auto) 4.7 % 05/31/22 09:26 Baso % (Auto) 1.2 % 05/31/22 09:26 Neut # (Auto) 1.51 K/uL (1.4-6.5) 05/31/22 09:26 Lymph # (Auto) 2.51 K/uL (1.2-3.4) 05/31/22 09:26 [place] # (Auto) 0.67 K/uL (0.24-0.82) 05/31/22 09:26 Eos # (Auto) 0.24 K/uL (0-0.50) 05/31/22 09:26 Baso # (Auto) 0.06 K/uL (0-0.2) 05/31/22 09:26 Immature Gran # (Auto) 0.16 K/uL (0.00-0.02) H 05/31/22 09:26 PT 10.5 Seconds (9.0-12.0) 05/25/22 14:50 INR 1.0 (0.9-1.1) 05/25/22 14:50 ABG pH 7.47 (7.35-7.45) H 05/25/22 14:50 ABG pCO2 38 mmHg (35-46) 05/25/22 14:50 ABG pO2 184 mmHg (80-95) H 05/25/22 14:50 ABG HCO3 28 mmol/L (19-24) H 05/25/22 14:50 ABG O2 Saturation > 100.0 % (90-95) H 05/25/22 14:50 ABG Base Excess 3.9 mEq/L (-9-1.8) H 05/25/22 14:50 Humberto Test Pos (Pos) 05/25/22 14:50 Oxygen Given 10L 05/25/22 14:50 Sodium 138 mmol/L (136-145) 06/03/22 07:21 Potassium 4.4 mmol/L (3.5-5.1) 06/03/22 07:21 Chloride 105 mmol/L (98-107) 06/03/22 07:21 Carbon Dioxide 28 mmol/L (21-32) 06/03/22 07:21 Anion Gap 5 (3-11) 06/03/22 07:21 BUN 35 mg/dl (6-23) H 06/03/22 07:21 Creatinine 1.44 mg/dl (0.6-1.4) H 06/03/22 07:21 Est Cr Clr Drug Dosing 45.6 ml/min 06/03/22 07:21 Est GFR ( Amer) 59.9 ml/min 06/03/22 07:21 Est GFR (Non-Af Amer) 51.7 ml/min 06/03/22 07:21 BUN/Creatinine Ratio 24.3 (10-20) H 06/03/22 07:21 Glucose 95 mg/dl (70-99(Fasting)) 06/03/22 07:21 POC Glucose 98 mg/dl (70-99) 05/26/22 23:14 Calcium 9.5 mg/dl (8.5-10.1) 06/03/22 07:21 Phosphorus 4.1 mg/dl (2.5-4.9) 06/03/22 07:21 Magnesium 2.4 mg/dl (1.7-2.4) 06/03/22 07:21 Total Bilirubin 0.3 mg/dl (0.2-1.0) 05/25/22 13:50 AST 29 U/L (13-39) 05/25/22 13:50 ALT 13 U/L (7-52) 05/25/22 13:50 Alkaline Phosphatase 97 U/L (34-104) 05/25/22 13:50 Troponin I High Sens 5.2 pg/ml (0-20) 05/25/22 13:50 B-Natriuretic Peptide 90 pg/ml (0-100) 05/26/22 06:19 Total Protein 7.3 gm/dl (6.0-8.3) 05/25/22 13:50 Albumin 3.4 gm/dl (3.4-5.0) 05/25/22 13:50 Globulin 3.9 gm/dl (2.5-4.0) 05/25/22 13:50 Albumin/Globulin Ratio 0.9 (0.9-2) 05/25/22 13:50 Procalcitonin < 0.05 ng/ml (0-0.5) 05/25/22 13:50 TSH 6.907 uIu/ml (0.300-4.500) H 05/28/22 08:54 Free T4 0.87 ng/dl (0.61-1.60) 05/28/22 08:54 Urine Color Yellow 06/02/22 16:17 Urine Appearance Turbid (Clear) A 06/02/22 16:17 Urine pH 7.5 (4.5-7.5) 06/02/22 16:17 Ur Specific [place] 1.015 (1.000-1.030) 06/02/22 16:17 Urine Protein 1+ (Negative) H 06/02/22 16:17 Urine Glucose (UA) Negative (Negative) 06/02/22 16:17 Urine Ketones Negative (Negative) 06/02/22 16:17 Urine Blood Negative (Negative) 06/02/22 16:17 Urine Nitrite Negative (Negative) 06/02/22 16:17 Urine Bilirubin Negative (Negative) 06/02/22 16:17 Urine Urobilinogen Negative (Negative) 06/02/22 16:17 Ur Leukocyte Esterase Negative (Negative) 06/02/22 16:17 Urine WBC (Auto) 0 /hpf (0-5) 06/02/22 16:17 Urine RBC (Auto) 5-10 /hpf (0-4) H 06/02/22 16:17 U Hyaline Cast (Auto) 1-5 /lpf (0-5) 06/02/22 16:17 U Epithel Cells (Auto) 0-5 /lpf (0-5) 06/02/22 16:17 Urine Bacteria (Auto) Negative (Negative) 06/02/22 16:17 Ur Random Creatinine 55.4 mg/dl 06/02/22 16:17 Ur Random Sodium 44 mmol/L 06/02/22 16:17 Nasal Screen MRSA (PCR) Negative (Negative) 05/25/22 14:42 SARS-CoV-2 (PCR) NEGATIVE (Negative) 05/25/22 14:42 Hepatitis C Ab (EIA) NON-REACTIVE (NON-REACTIVE) 05/26/22 06:19 Hep C Ab Signal/Cutoff 0.05 (<1.00) 05/26/22 06:19 Influenza Type A (PCR) Negative (Neg) 05/25/22 14:42 Influenza Type B (PCR) Negative (Neg) 05/25/22 14:42 RSV (RT-PCR) Negative (Neg) 05/25/22 14:42 Impressions KUB X-Ray 05/25/22 20:02 KUB HISTORY: eval for constipation COMPARISON: KUB 02/25/2014. FINDINGS: Postoperative changes again noted within the left hip. Moderate to large amount of well-formed stool seen throughout the colon. No dilated loops of bowel to suggest an obstruction. No renal calculi. No ureteral calculi. Calcifications in the deep pelvis likely represent phleboliths. A gastrostomy tube is again noted within the epigastric region. No pneumoperitoneum or pneumatosis. IMPRESSION: Moderate to large amount of well-formed stool seen throughout the colon. ACT 112: Negative or not required by law. Electronically signed by: Juan Moon M.D. 05/25/2022 8:38 PM Chest X-Ray 05/28/22 08:41 XR chest 1V portable HISTORY: Follow up pneumonia. COMPARISON: Chest 05/25/2022. FINDINGS: No pneumothorax. There are low lung volumes. The heart is normal in size. Mild diffuse interstitial thickening again noted. Bibasilar opacities most pronounced on the left have improved. The upper lung zones remain clear.. IMPRESSION: Interval improvement in the patchy bibasilar densities most pronounced on the left. ACT 112: Negative or not required by law. Electronically signed by: Juan Moon M.D. 05/28/2022 10:48 AM Medications Administered Current Inpatient Medications Acetaminophen (Acetaminophen Susp 500 Mg/15.6 Ml Udp) 1,000 mg PO Q6H PRN PRN Reason: Pain or Fever Stop: 06/24/22 21:28 Albuterol (Albuterol 0.083% Nebu Soln 3 Ml Vial) 2.5 mg INH Q6H PRN; Protocol PRN Reason: ASTHMA Stop: 06/24/22 20:00 Bacitracin/Polymyxin B Sulfate (Bacitracin/Polymyx B Oph Oint 3.5 Gm Tube: Patient's Own Med) 1 appln OPL HS [facility] Stop: 06/25/22 20:59 Last Admin: 06/02/22 23:10 Dose: 1 appln Bisacodyl (Bisacodyl 10 Mg Supp) 10 mg IA DAILY PRN PRN Reason: Q4 DAYS IF MOM NO RESULTS. Stop: 06/24/22 20:00 Bisacodyl (Bisacodyl 10 Mg Supp) 10 mg IA ONE PRN PRN Reason: constipation Stop: 06/25/22 16:42 Calamine/Phenol (Menthol-Zinc Oxide 360 Appln/120 Gm Tube) 1 appln EXT QS PRN PRN Reason: PREVENT SORES ON BUTTOCKS Stop: 06/24/22 21:29 Entecavir (Entecavir 0.05 Mg/Ml Solution) 0.5 mg PEG DAILY [facility] Stop: 06/25/22 16:59 Last Admin: 06/03/22 11:51 Dose: Not Given Enteral Nutritional Formula (Fibersource Hn 1.2 Jamie 1000 Ml Bag) 1,000 ml GT UD YUMIKO; Protocol Stop: 06/25/22 13:59 Last Admin: 06/02/22 20:08 Dose: 1,000 ml Escitalopram Oxalate (Escitalopram Oxalate 10 Mg Tab) 10 mg PO QAM YUMIKO Stop: 06/25/22 08:59 Last Admin: 06/03/22 08:38 Dose: 10 mg Famotidine (Famotidine 20 Mg Tab) 20 mg JT BID YUMIKO Stop: 06/24/22 20:59 Last Admin: 06/03/22 08:41 Dose: 20 mg Gentamicin Sulfate (Gentamicin Sulfate 0.3% Op Soln 5 Ml Btl) 1 drops OPB Q4H PRN PRN Reason: REDNESS Stop: 06/04/22 20:00 Last Admin: 05/27/22 07:48 Dose: 1 drops Guaifenesin/Dextromethorphan (Guaifenesin/Dextrom Syrup 200mg/20mg 10ml Udc) 10 ml GT Q4H PRN PRN Reason: Cough Stop: 06/24/22 21:23 Last Admin: 05/25/22 22:08 Dose: 10 ml Heparin Sodium (Porcine) (Heparin Sod 5,000 Unit/0.5 Ml Vial) 5,000 units SQ Q8 YUMIKO Stop: 06/24/22 21:59 Last Admin: 06/03/22 06:03 Dose: 5,000 units Lactated Ringer's (Lr) 1,000 mls @ 80 mls/hr IV .[id number] YUMIKO Stop: 06/03/22 15:29 Last Admin: 06/03/22 03:35 Dose: 80 mls/hr Lactobacillus Acidophilus (Lactobacillus Acidophilus 1 Gm Pack) 1 gm PEG BID YUMIKO Stop: 06/28/22 20:59 Last Admin: 06/03/22 08:41 Dose: 1 gm Lamotrigine (Lamotrigine 100 Mg Tab) 150 mg PO HS YUMIKO Stop: 06/24/22 20:59 Last Admin: 06/02/22 23:10 Dose: 150 mg Lamotrigine (Lamotrigine 25 Mg Tab) 50 mg PO QAM YUMIKO Stop: 06/25/22 08:59 Last Admin: 06/03/22 08:39 Dose: 50 mg Levothyroxine Sodium (Levothyroxine Sodium 75 Mcg Tablet) 75 mcg GT DAILYBB YUMIKO Stop: 06/25/22 06:29 Last Admin: 06/03/22 06:03 Dose: 75 mcg Loratadine (Loratadine 1 Mg/1 Ml) 10 mg GT QAM YUMIKO Stop: 06/25/22 08:59 Last Admin: 06/03/22 08:37 Dose: 10 mg Magnesium Hydroxide (Magnesium Hydroxide Susp 30 Ml Udc) 30 ml PO Q12H PRN PRN Reason: Constipation Stop: 06/24/22 18:59 Miscellaneous (Ciclopirox~Order Awaiting Action) 1 each N/A QS YUMIKO Stop: 06/25/22 07:59 Last Admin: 06/03/22 09:14 Dose: Not Given Olanzapine (Olanzapine Zydis 5 Mg Orally Dis. Tab) 5 mg PO HS YUMIKO Stop: 06/24/22 20:59 Last Admin: 06/02/22 20:12 Dose: 5 mg Ondansetron HCl (Ondansetron Inj 2 Mg/Ml 2 Ml Vial) 4 mg IV Q6H PRN PRN Reason: Nausea Stop: 06/24/22 18:59 Polyethylene Glycol (Polyethylene (Miralax) 17 Gm Pack) 17 gm PEG DAILY YUMIKO Stop: 06/25/22 08:59 Last Admin: 06/03/22 08:38 Dose: 17 gm Psyllium Hydrophilic Mucilloid (Psyllium Or Guar Gum Fiber Powder Packet) 1 pkt PO BID YUMIKO Stop: 06/25/22 08:59 Last Admin: 06/03/22 08:39 Dose: 1 pkt Senna/Docusate Sodium (Docusate Sodium/Senna 50/8.6mg Tab) 2 tab PO HS YUMIKO Stop: 06/24/22 20:59 Last Admin: 06/02/22 20:10 Dose: 2 tab Sterile Water (Tube Feeding Water Flush) 150 ml GT Q6H YUMIKO Stop: 06/25/22 13:59 Last Admin: 06/03/22 08:42 Dose: 150 ml Vitamin D (Cholecalciferol 1,000 Units 25 Mcg Tab) 1,000 units GT QAM YUMIKO Stop: 06/25/22 08:59 Last Admin: 06/03/22 08:39 Dose: 1,000 units
[2022-06-03] MEDS: BACITRACIN OPL SCH (21:01)
[2022-06-03] MEDS: [UNRECOGNIZED DRUG - OTHER] OPL SCH (21:01)
[2022-06-03] MEDS: lamoTRIgine 100 MG TAB PO SCH (21:03)
[2022-06-03] MEDS: OLANZapine ZYDIS 5 MG ORALLY DIS. TAB PO SCH (21:04)
[2022-06-03] MEDS: DOCUSATE SODIUM/SENNA 50/8.6MG TAB PO SCH (21:11)
[2022-06-04] MEDS: TUBE FEEDING WATER FLUSH GT SCH ×4 (06:05→20:29)
[2022-06-04] MEDS: HEPARIN SOD 5,000 UNIT/0.5 ML VIAL SQ SCH ×3 (06:05→22:14)
[2022-06-04] MEDS: CICLOPIROX~ORDER AWAITING ACTION SCH ×2 (07:44→15:16)
[2022-06-04] MEDS: LEVOTHYROXINE SODIUM 75 MCG TABLET GT SCH (07:44)
--- NOTE | 2022-06-04 08:27 | Hospitalist Progress Note ---
Date of Service June 04, 2022 Assessment & Plan (1) NOAM (acute kidney injury): Plan: - likely prerenal - Cr improved - will monitor UOP - changed free water flushes in TFs to 150cc q4hr - will continue to monitor Cr (2) Acute respiratory failure with hypoxia: Plan: - likely secondary to bilateral pneumonia on imaging - sputum culture growing pseudomonas likely causing his pneumonia - weaned of oxygen, now on RA - s/p 7 days of doxycycline and cefepime - pending placement to rehab (3) Pneumonia: Plan: - see above (4) Down syndrome: Plan: - noted (5) Dysphagia: Plan: - PEG in place - continue TFs (6) Constipation: Plan: - continue bowel regimen (7) Seizure disorder: Plan: - continue home AEDs (8) Hepatitis B carrier: Plan: - noted (9) Hypothyroidism: Plan: - continue levothyroxine Plan DVT Ppx: SQ heparin Code status: FULL - need to clarify code with seo specialist Mr Montenegro during daylight hours at [phone]. No family is involved in patient's care. PCP: Douglas Dispo: med/surg - pending placement to rehab Armin James MD [facility] Medicine Admission and Anticipated Discharge Date Admission Date: May 25, 2022 Subjective [facility], hypothyroidism, dysphagia s/p PEG, chronic hep B carrier presented with worsening shortness of breath, found to have bilateral pneumonia, sputum culture growing Pseudomonas. Started on cefepime with improvement. Now pending placement to rehab. Patient does not answer many questions but when he did answer, he denied pain, shortness of breath. Review of Systems Review of Systems: all noted and negative except for above Physical Exam Physical Exam: General- unable to assess orientation but awake and alert, not in distress Eyes- anicteric Neck- no JVD Lungs- lungs more clear to occultation with intermittent ronchi, No wheezing Heart- normal rate, regular rhythm; no murmurs Abdomen- normal bowel sounds, nondistended, soft, nontender PEG tube in place-minimal erythema around the PEG tube insertion site No signs of infection Extremities- no pretibial edema, no calf tenderness Neuro- awake and alert; no gross focal neurologic deficits Skin- warm & dry Results & Data Results & Data ([facility]) Vital Signs (Past 12 Hours) Vital Signs Temp Pulse Resp BP Pulse Ox O2 Del Method 10/28/22 07:47 Room Air 06/04/22 07:24 36.5 C 64 18 121/74 98 Room Air 06/03/22 23:23 36.9 C 67 18 110/62 94 Diagnostic Findings Laboratory Results WBC 5.15 K/ul (4.8-10.8) 05/31/22 09:26 RBC 3.87 M/uL (4.63-6.08) L 05/31/22 09:26 Hgb 12.8 g/dl (14.0-18.0) L 05/31/22 09:26 Hct 38.0 % (40.1-51.0) L 05/31/22 09:26 MCV 98.2 fL (80.0-100.0) 05/31/22 09:26 MCH 33.1 pg (25.0-34.0) 05/31/22 09: MCHC 33.7 g/dL (32.0-36.0) 05/31/22 09: RDW Std Deviation 45.5 fL (36.4-46.3) 05/31/22 09:26 RDW Coeff of Tina 12.8 % (11.5-14.5) 05/31/22 09:26 Plt Count 153 K/uL (130-400) 05/31/22 09:26 MPV 10.4 fL (9.4-12.4) 05/31/22 09: Immature Gran % (Auto) 3.1 % 05/31/22 09: Neut % (Auto) 29.3 % 05/31/22 09: Lymph % (Auto) 48.7 % 05/31/22 09:26 [place] % (Auto) 13.0 % 05/31/22 09:26 Eos % (Auto) 4.7 % 05/31/22 09:26 Baso % (Auto) 1.2 % 05/31/22:26 Neut # (Auto) 1.51 K/uL (1.4-6.5) 05/31/22 09:26 Lymph # (Auto) 2.51 K/uL (1.2-3.4) 05/31/22 09: [place] # (Auto) 0.67 K/uL (0.24-0.82) 05/31/22 09:26 Eos # (Auto) 0.24 K/uL (0-0.50) 05/31/22 09:26 Baso # (Auto) 0.06 K/uL (0-0.2) 05/31/22 09:26 Immature Gran # (Auto) 0.16 K/uL (0.00-0.02) H 05/31/22 09:26 PT 10.5 Seconds (9.0-12.0) 05/25/22 14:50 INR 1.0 (0.9-1.1) 05/25/22 14:50 ABG pH 7.47 (7.35-7.45) H 05/25/22 14:50 ABG pCO2 38 mmHg (35-46) 05/25/22 14:50 ABG pO2 184 mmHg (80-95) H 05/25/22 14:50 ABG HCO3 28 mmol/L (19-24) H 05/25/22 14:50 ABG O2 Saturation > 100.0 % (90-95) H 05/25/22 14:50 ABG Base Excess 3.9 mEq/L (-9-1.8) H 05/25/22 14:50 Humberto Test Pos (Pos) 05/25/22 14:50 Oxygen Given 10L 05/25/22 14:50 Sodium 138 mmol/L (136-145) 06/04/22 08:19 Potassium 4.5 mmol/L (3.5-5.1) 06/04/22 08:19 Chloride 104 mmol/L (98-107) 06/04/22 08:19 Carbon Dioxide 30 mmol/L (21-32) 06/04/22 08:19 Anion Gap 4 (3-11) 06/04/22 08:19 BUN 31 mg/dl (6-23) H 06/04/22 08:19 Creatinine 1.34 mg/dl (0.6-1.4) 06/04/22 08:19 Est Cr Clr Drug Dosing 49.0 ml/min 06/04/22 08:19 Est GFR ( Amer) 65.3 ml/min 06/04/22 08:19 Est GFR (Non-Af Amer) 56.4 ml/min 06/04/22 08:19 BUN/Creatinine Ratio 23.1 (10-20) H 06/04/22 08:19 Glucose 91 mg/dl (70-99(Fasting)) 06/04/22 08:19 POC Glucose 98 mg/dl (70-99) 05/26/22 23:14 Calcium 9.9 mg/dl (8.5-10.1) 06/04/22 08:19 Phosphorus 4.0 mg/dl (2.5-4.9) 06/04/22 08:19 Magnesium 2.6 mg/dl (1.7-2.4) H 06/04/22 08:19 Total Bilirubin 0.3 mg/dl (0.2-1.0) 05/25/22 13:50 AST 29 U/L (13-39) 05/25/22 13:50 ALT 13 U/L (7-52) 05/25/22 13:50 Alkaline Phosphatase 97 U/L (34-104) 05/25/22 13:50 Troponin I High Sens 5.2 pg/ml (0-20) 05/25/22 13:50 B-Natriuretic Peptide 90 pg/ml (0-100) 05/26/22 06:19 Total Protein 7.3 gm/dl (6.0-8.3) 05/25/22 13:50 Albumin 3.4 gm/dl (3.4-5.0) 05/25/22 13:50 Globulin 3.9 gm/dl (2.5-4.0) 05/25/22 13:50 Albumin/Globulin Ratio 0.9 (0.9-2) 05/25/22 13:50 Procalcitonin < 0.05 ng/ml (0-0.5) 05/25/22 13:50 TSH 6.907 uIu/ml (0.300-4.500) H 05/28/22 08:54 Free T4 0.87 ng/dl (0.61-1.60) 05/28/22 08:54 Urine Color Yellow 06/02/22 16:17 Urine Appearance Turbid (Clear) A 06/02/22 16:17 Urine pH 7.5 (4.5-7.5) 06/02/22 16:17 Ur Specific [place] 1.015 (1.000-1.030) 06/02/22 16:17 Urine Protein 1+ (Negative) H 06/02/22 16:17 Urine Glucose (UA) Negative (Negative) 06/02/22 16:17 Urine Ketones Negative (Negative) 06/02/22 16:17 Urine Blood Negative (Negative) 06/02/22 16:17 Urine Nitrite Negative (Negative) 06/02/22 16:17 Urine Bilirubin Negative (Negative) 06/02/22 16:17 Urine Urobilinogen Negative (Negative) 06/02/22 16:17 Ur Leukocyte Esterase Negative (Negative) 06/02/22 16:17 Urine WBC (Auto) 0 /hpf (0-5) 06/02/22 16:17 Urine RBC (Auto) 5-10 /hpf (0-4) H 06/02/22 16:17 U Hyaline Cast (Auto) 1-5 /lpf (0-5) 06/02/22 16:17 U Epithel Cells (Auto) 0-5 /lpf (0-5) 06/02/22 16:17 Urine Bacteria (Auto) Negative (Negative) 06/02/22 16:17 Ur Random Creatinine 55.4 mg/dl 06/02/22 16:17 Ur Random Sodium 44 mmol/L 06/02/22 16:17 Ur Random Urea Nitrogn 703 mg/dL 06/02/22 16:16 Nasal Screen MRSA (PCR) Negative (Negative) 05/25/22 14:42 SARS-CoV-2 (PCR) NEGATIVE (Negative) 05/25/22 14:42 Hepatitis C Ab (EIA) NON-REACTIVE (NON-REACTIVE) 05/26/22 06:19 Hep C Ab Signal/Cutoff 0.05 (<1.00) 05/26/22 06:19 Influenza Type A (PCR) Negative (Neg) 05/25/22 14:42 Influenza Type B (PCR) Negative (Neg) 05/25/22 14:42 RSV (RT-PCR) Negative (Neg) 05/25/22 14:42 Impressions KUB X-Ray 05/25/22 20:02 KUB HISTORY: eval for constipation COMPARISON: KUB 02/25/2014. FINDINGS: Postoperative changes again noted within the left hip. Moderate to large amount of well-formed stool seen throughout the colon. No dilated loops of bowel to suggest an obstruction. No renal calculi. No ureteral calculi. Calcifications in the deep pelvis likely represent phleboliths. A gastrostomy tube is again noted within the epigastric region. No pneumoperitoneum or pneumatosis. IMPRESSION: Moderate to large amount of well-formed stool seen throughout the colon. ACT 112: Negative or not required by law. Electronically signed by: Juan Moon M.D. 05/25/2022 8:38 PM Chest X-Ray 05/28/22 08:41 XR chest 1V portable HISTORY: Follow up pneumonia. COMPARISON: Chest 05/25/2022. FINDINGS: No pneumothorax. There are low lung volumes. The heart is normal in size. Mild diffuse interstitial thickening again noted. Bibasilar opacities most pronounced on the left have improved. The upper lung zones remain clear.. IMPRESSION: Interval improvement in the patchy bibasilar densities most pronounced on the left. ACT 112: Negative or not required by law. Electronically signed by: Juan Moon M.D. 05/28/2022 10:48 AM Medications Administered Current Inpatient Medications Acetaminophen (Acetaminophen Susp 500 Mg/15.6 Ml Udp) 1,000 mg PO Q6H PRN PRN Reason: Pain or Fever Stop: 06/24/22 21:28 Albuterol (Albuterol 0.083% Nebu Soln 3 Ml Vial) 2.5 mg INH Q6H PRN; Protocol PRN Reason: ASTHMA Stop: 06/24/22 20:00 Bacitracin/Polymyxin B Sulfate (Bacitracin/Polymyx B Oph Oint 3.5 Gm Tube: Patient's Own Med) 1 appln OPL HS YUMIKO Stop: 06/25/22 20:59 Last Admin: 06/03/22 21:01 Dose: 1 appln Bisacodyl (Bisacodyl 10 Mg Supp) 10 mg PA DAILY PRN PRN Reason: Q4 DAYS IF MOM NO RESULTS. Stop: 06/24/22 20:00 Bisacodyl (Bisacodyl 10 Mg Supp) 10 mg PA ONE PRN PRN Reason: constipation Stop: 06/25/22 16:42 Calamine/Phenol (Menthol-Zinc Oxide 360 Appln/120 Gm Tube) 1 appln EXT QS PRN PRN Reason: PREVENT SORES ON BUTTOCKS Stop: 06/24/22 21:29 Entecavir (Entecavir 0.05 Mg/Ml Solution) 0.5 mg PEG DAILY YUMIKO Stop: 06/25/22 16:59 Last Admin: 06/04/22 09:11 Dose: 0.5 mg Enteral Nutritional Formula (Fibersource Hn 1.2 Jamie 1000 Ml Bag) 1,000 ml GT UD YUMIKO; Protocol Stop: 06/25/22 13:59 Last Admin: 06/02/22 20:08 Dose: 1,000 ml Escitalopram Oxalate (Escitalopram Oxalate 10 Mg Tab) 10 mg PO QAM YUMIKO Stop: 06/25/22 08:59 Last Admin: 06/04/22 09:13 Dose: 10 mg Famotidine (Famotidine 20 Mg Tab) 20 mg JT BID YUMIKO Stop: 06/24/22 20:59 Last Admin: 06/04/22 09:17 Dose: 20 mg Gentamicin Sulfate (Gentamicin Sulfate 0.3% Op Soln 5 Ml Btl) 1 drops OPB Q4H PRN PRN Reason: REDNESS Stop: 06/04/22 20:00 Last Admin: 05/27/22 07:48 Dose: 1 drops Guaifenesin/Dextromethorphan (Guaifenesin/Dextrom Syrup 200mg/20mg 10ml Udc) 10 ml GT Q4H PRN PRN Reason: Cough Stop: 06/24/22 21:23 Last Admin: 05/25/22 22:08 Dose: 10 ml Heparin Sodium (Porcine) (Heparin Sod 5,000 Unit/0.5 Ml Vial) 5,000 units SQ Q8 YUMIKO Stop: 06/24/22 21:59 Last Admin: 06/04/22 06:05 Dose: 5,000 units Lactobacillus Acidophilus (Lactobacillus Acidophilus 1 Gm Pack) 1 gm PEG BID YUMIKO Stop: 06/28/22 20:59 Last Admin: 06/04/22 09:13 Dose: 1 gm Lamotrigine (Lamotrigine 100 Mg Tab) 150 mg PO HS YUMIKO Stop: 06/24/22 20:59 Last Admin: 06/03/22 21:03 Dose: 150 mg Lamotrigine (Lamotrigine 25 Mg Tab) 50 mg PO QAM YUMIKO Stop: 06/25/22 08:59 Last Admin: 06/04/22 09:12 Dose: 50 mg Levothyroxine Sodium (Levothyroxine Sodium 75 Mcg Tablet) 75 mcg GT DAILYBB YUMIKO Stop: 06/25/22 06:29 Last Admin: 06/04/22 07:44 Dose: 75 mcg Loratadine (Loratadine 1 Mg/1 Ml) 10 mg GT QAM YUMIKO Stop: 06/25/22 08:59 Last Admin: 06/04/22 09:12 Dose: 10 mg Magnesium Hydroxide (Magnesium Hydroxide Susp 30 Ml Udc) 30 ml PO Q12H PRN PRN Reason: Constipation Stop: 06/24/22 18:59 Miscellaneous (Ciclopirox~Order Awaiting Action) 1 each N/A QS YUMIKO Stop: 06/25/22 07:59 Last Admin: 06/04/22 07:44 Dose: Not Given Olanzapine (Olanzapine Zydis 5 Mg Orally Dis. Tab) 5 mg PO HS YUMIKO Stop: 06/24/22 20:59 Last Admin: 06/03/22 21:04 Dose: 5 mg Ondansetron HCl (Ondansetron Inj 2 Mg/Ml 2 Ml Vial) 4 mg IV Q6H PRN PRN Reason: Nausea Stop: 06/24/22 18:59 Polyethylene Glycol (Polyethylene (Miralax) 17 Gm Pack) 17 gm PEG DAILY YUMIKO Stop: 06/25/22 08:59 Last Admin: 06/04/22 09:17 Dose: 17 gm Psyllium Hydrophilic Mucilloid (Psyllium Or Guar Gum Fiber Powder Packet) 1 pkt PO BID YUMIKO Stop: 06/25/22 08:59 Last Admin: 06/04/22 09:10 Dose: 1 pkt Senna/Docusate Sodium (Docusate Sodium/Senna 50/8.6mg Tab) 2 tab PO HS YUMIKO Stop: 06/24/22 20:59 Last Admin: 06/03/22 21:11 Dose: 2 tab Sterile Water (Tube Feeding Water Flush) 150 ml GT Q4 YUMIKO Stop: 07/04/22 15:59 Vitamin D (Cholecalciferol 1,000 Units 25 Mcg Tab) 1,000 units GT QAM YUMIKO Stop: 06/25/22 08:59 Last Admin: 06/04/22 09:13 Dose: 1,000 units
[2022-06-04 08:59] LABS: BUN Creatinine Ratio 23.1 (10-20); Calcium 9.9 mg/dl (8.5-10.1); Est GFR (African American) 65.3 ml/min; Est GFR (Non-African American) 56.4 ml/min; Magnesium 2.6 mg/dl (1.7-2.4); Potassium 4.5 mmol/L (3.5-5.1)
[2022-06-04] MEDS: PSYLLIUM or GUAR GUM FIBER POWDER PACKET PO SCH ×2 (09:10→20:29)
[2022-06-04] MEDS: ENTECAVIR 0.05 MG/ML PEG SCH (09:11)
[2022-06-04] MEDS: LORATADINE 1 MG/1 ML GT SCH (09:12)
[2022-06-04] MEDS: lamoTRIgine 25 MG TAB PO SCH (09:12)
[2022-06-04] MEDS: LACTOBACILLUS ACIDOPHILUS 1 GM PACK PEG SCH ×2 (09:13→20:29)
[2022-06-04] MEDS: CHOLECALCIFEROL 1,000 UNITS 25 MCG TAB GT SCH (09:13)
[2022-06-04] MEDS: ESCITALOPRAM OXALATE 10 MG TAB PO SCH (09:13)
[2022-06-04] MEDS: FAMOTIDINE 20 MG TAB JT SCH ×2 (09:17→20:33)
[2022-06-04] MEDS: POLYETHYLENE (MIRALAX) 17 GM PACK PEG SCH (09:17)
[2022-06-04 11:22] LABS: Urea Nitrogen, Random Urine 703 mg/dL
[2022-06-04] MEDS: lamoTRIgine 100 MG TAB PO SCH (20:26)
[2022-06-04] MEDS: BACITRACIN OPL SCH (20:26)
[2022-06-04] MEDS: [UNRECOGNIZED DRUG - OTHER] OPL SCH (20:26)
[2022-06-04] MEDS: OLANZapine ZYDIS 5 MG ORALLY DIS. TAB PO SCH (20:27)
[2022-06-04] MEDS: DOCUSATE SODIUM/SENNA 50/8.6MG TAB PO SCH (20:33)
[2022-06-05] MEDS: CICLOPIROX~ORDER AWAITING ACTION SCH ×4 (00:40→23:37)
[2022-06-05] MEDS: TUBE FEEDING WATER FLUSH GT SCH ×7 (00:40→23:37)
[2022-06-05] MEDS: LEVOTHYROXINE SODIUM 75 MCG TABLET GT SCH (06:14)
[2022-06-05] MEDS: HEPARIN SOD 5,000 UNIT/0.5 ML VIAL SQ SCH ×3 (06:14→21:03)
[2022-06-05 06:51] LABS: Basophils # (auto) 0.06 K/uL (0-0.2); Basophils % (auto) 1.4 %; Eosinophils # (auto) 0.23 K/uL (0-0.50); Eosinophils % (auto) 5.5 %; Hematocrit (blood only) 35.9 % (40.1-51.0); Immature Granulocytes # (auto) 0.05 K/uL (0.00-0.02); Immature Granulocytes % (auto) 1.2 %; Lymphocytes # (auto) 1.79 K/uL (1.2-3.4); Lymphocytes % (auto) 42.6 %; Mean Platelet Volume 11.1 fL (9.4-12.4); Monocytes # (auto) 0.57 K/uL (0.24-0.82); Monocytes % (auto) 13.6 %; Neutrophils % (auto) 35.7 %; Platelet Count 128 K/uL (130-400)
[2022-06-05 07:16] LABS: Mean Corpuscular Hemoglobin 33.3 pg (25.0-34.0); Mean Corpuscular Hgb Conc 33.4 g/dL (32.0-36.0); Mean Corpuscular Volume 99.7 fL (80.0-100.0); RDW Coefficient of Variation 13.1 % (11.5-14.5); RDW Standard Deviation 46.8 fL (36.4-46.3)
[2022-06-05 07:32] LABS: BUN Creatinine Ratio 23.8 (10-20); Calcium 9.4 mg/dl (8.5-10.1); Creatinine Clr Calc Pharmacy 50.5 ml/min; Est GFR (African American) 67.8 ml/min; Est GFR (Non-African American) 58.5 ml/min; Magnesium 2.6 mg/dl (1.7-2.4); Phosphorus 4.4 mg/dl (2.5-4.9)
[2022-06-05] MEDS ORDERED: ACETAMINOPHEN SUSP 325 MG/10.15 ML UDC PO PRN (08:08)
[2022-06-05] MEDS: CHOLECALCIFEROL 1,000 UNITS 25 MCG TAB GT SCH (08:11)
[2022-06-05] MEDS: ESCITALOPRAM OXALATE 10 MG TAB PO SCH (08:11)
[2022-06-05] MEDS: LACTOBACILLUS ACIDOPHILUS 1 GM PACK PEG SCH ×2 (08:12→21:00)
[2022-06-05] MEDS: LORATADINE 1 MG/1 ML GT SCH (08:12)
[2022-06-05] MEDS: ENTECAVIR 0.05 MG/ML PEG SCH (08:12)
[2022-06-05] MEDS: FAMOTIDINE 20 MG TAB JT SCH ×2 (08:12→21:10)
[2022-06-05] MEDS: lamoTRIgine 25 MG TAB PO SCH (08:12)
[2022-06-05] MEDS: PSYLLIUM or GUAR GUM FIBER POWDER PACKET PO SCH ×2 (08:13→21:03)
[2022-06-05] MEDS: POLYETHYLENE (MIRALAX) 17 GM PACK PEG SCH (08:13)
[2022-06-05] MEDS: bisacodyL 10 MG SUPP PR SCH (12:11)
--- NOTE | 2022-06-05 12:31 | Hospitalist Progress Note ---
Date of Service June 05, 2022 Assessment & Plan (1) Pneumonia: Plan: - likely secondary to bilateral pneumonia on imaging - sputum culture growing pseudomonas likely causing his pneumonia - weaned of oxygen, now on RA - s/p 7 days of doxycycline and cefepime - Resolved - pending placement to rehab (2) NOAM (acute kidney injury): Plan: - likely prerenal - Cr improved - will monitor UOP - changed free water flushes in TFs to 150cc q4hr - Cr returned to baseline - resolved (3) Down syndrome: Plan: - noted (4) Dysphagia: Plan: - PEG in place - continue TFs (5) Constipation: Plan: - continue bowel regimen (6) Seizure disorder: Plan: - continue home AEDs (7) Hepatitis B carrier: Plan: - noted (8) Hypothyroidism: Plan: - continue levothyroxine Plan DVT Ppx: SQ heparin Code status: FULL - offender job retention specialist Mr Montenegro during daylight hours at [phone]. PCP: Douglas Dispo: med/surg - pending placement to rehab Armin James MD [facility] Medicine Admission and Anticipated Discharge Date Admission Date: May 25, 2022 Subjective Patient with downs syndrome from [facility], hypothyroidism, dysphagia s/p PEG, chronic hep B carrier presented with worsening shortness of breath, found to have bilateral pneumonia, sputum culture growing Pseudomonas. Started on cefepime with improvement. Now pending placement to rehab. Patient does not answer many questions but when he did answer, he denied pain, shortness of breath. Review of Systems Review of Systems: all noted and negative except for above Physical Exam Physical Exam: General- unable to assess orientation but awake and alert, not in distress Eyes- anicteric Neck- no JVD Lungs- lungs more clear to occultation with intermittent ronchi, No wheezing Heart- normal rate, regular rhythm; no murmurs Abdomen- normal bowel sounds, nondistended, soft, nontender PEG tube in place-minimal erythema around the PEG tube insertion site No signs of infection Extremities- no pretibial edema, no calf tenderness Neuro- awake and alert; no gross focal neurologic deficits Skin- warm & dry Results & Data Results & Data ([facility]) Vital Signs (Past 12 Hours) Vital Signs Temp Pulse Resp BP Pulse Ox O2 Del Method 06/05/22 08:07 36.6 C 62 20 107/60 94 Room Air 06/05/22 02:43 92 Room Air Diagnostic Findings Laboratory Results WBC 4.20 K/ul (4.8-10.8) L 06/05/22 05:57 RBC 3.60 M/uL (4.63-6.08) L 06/05/22 05:57 Hgb 12.0 g/dl (14.0-18.0) L 06/05/22 05:57 Hct 35.9 % (40.1-51.0) L 06/05/22 05:57 MCV 99.7 fL (80.0-100.0) 06/05/22 05:57 MCH 33.3 pg (25.0-34.0) 06/05/22 05:57 MCHC 33.4 g/dL (32.0-36.0) 06/05/22 05:57 RDW Std Deviation 46.8 fL (36.4-46.3) H 06/05/22 05:57 RDW Coeff of Tina 13.1 % (11.5-14.5) 06/05/22 05:57 Plt Count 128 K/uL (130-400) L 06/05/22 05:57 MPV 11.1 fL (9.4-12.4) 06/05/22 05:57 Immature Gran % (Auto) 1.2 % 06/05/22 05:57 Neut % (Auto) 35.7 % 06/05/22 05:57 Lymph % (Auto) 42.6 % 06/05/22 05:57 [place] % (Auto) 13.6 % 06/05/22 05:57 Eos % (Auto) 5.5 % 06/05/22 05:57 Baso % (Auto) 1.4 % 06/05/22 05:57 Neut # (Auto) 1.50 K/uL (1.4-6.5) 06/05/22 05:57 Lymph # (Auto) 1.79 K/uL (1.2-3.4) 06/05/22 05:57 [place] # (Auto) 0.57 K/uL (0.24-0.82) 06/05/22 05:57 Eos # (Auto) 0.23 K/uL (0-0.50) 06/05/22 05:57 Baso # (Auto) 0.06 K/uL (0-0.2) 06/05/22 05:57 Immature Gran # (Auto) 0.05 K/uL (0.00-0.02) H 06/05/22 05:57 PT 10.5 Seconds (9.0-12.0) 05/25/22 14:50 INR 1.0 (0.9-1.1) 05/25/22 14:50 ABG pH 7.47 (7.35-7.45) H 05/25/22 14:50 ABG pCO2 38 mmHg (35-46) 05/25/22 14:50 ABG pO2 184 mmHg (80-95) H 05/25/22 14:50 ABG HCO3 28 mmol/L (19-24) H 05/25/22 14:50 ABG O2 Saturation > 100.0 % (90-95) H 05/25/22 14:50 ABG Base Excess 3.9 mEq/L (-9-1.8) H 05/25/22 14:50 Humberto Test Pos (Pos) 05/25/22 14:50 Oxygen Given 10L 05/25/22 14:50 Sodium 140 mmol/L (136-145) 06/05/22 05:57 Potassium 4.0 mmol/L (3.5-5.1) 06/05/22 05:57 Chloride 104 mmol/L (98-107) 06/05/22 05:57 Carbon Dioxide 31 mmol/L (21-32) 06/05/22 05:57 Anion Gap 5 (3-11) 06/05/22 05:57 BUN 31 mg/dl (6-23) H 06/05/22 05:57 Creatinine 1.30 mg/dl (0.6-1.4) 06/05/22 05:57 Est Cr Clr Drug Dosing 50.5 ml/min 06/05/22 05:57 Est GFR ( Amer) 67.8 ml/min 06/05/22 05:57 Est GFR (Non-Af Amer) 58.5 ml/min 06/05/22 05:57 BUN/Creatinine Ratio 23.8 (10-20) H 06/05/22 05:57 Glucose 100 mg/dl (70-99(Fasting)) H 06/05/22 05:57 POC Glucose 98 mg/dl (70-99) 05/26/22 23:14 Calcium 9.4 mg/dl (8.5-10.1) 06/05/22 05:57 Phosphorus 4.4 mg/dl (2.5-4.9) 06/05/22 05:57 Magnesium 2.6 mg/dl (1.7-2.4) H 06/05/22 05:57 Total Bilirubin 0.3 mg/dl (0.2-1.0) 05/25/22 13:50 AST 29 U/L (13-39) 05/25/22 13:50 ALT 13 U/L (7-52) 05/25/22 13:50 Alkaline Phosphatase 97 U/L (34-104) 05/25/22 13:50 Troponin I High Sens 5.2 pg/ml (0-20) 05/25/22 13:50 B-Natriuretic Peptide 90 pg/ml (0-100) 05/26/22 06:19 Total Protein 7.3 gm/dl (6.0-8.3) 05/25/22 13:50 Albumin 3.4 gm/dl (3.4-5.0) 05/25/22 13:50 Globulin 3.9 gm/dl (2.5-4.0) 05/25/22 13:50 Albumin/Globulin Ratio 0.9 (0.9-2) 05/25/22 13:50 Procalcitonin < 0.05 ng/ml (0-0.5) 05/25/22 13:50 TSH 6.907 uIu/ml (0.300-4.500) H 05/28/22 08:54 Free T4 0.87 ng/dl (0.61-1.60) 05/28/22 08:54 Urine Color Yellow 06/02/22 16:17 Urine Appearance Turbid (Clear) A 06/02/22 16:17 Urine pH 7.5 (4.5-7.5) 06/02/22 16:17 Ur Specific [place] 1.015 (1.000-1.030) 06/02/22 16:17 Urine Protein 1+ (Negative) H 06/02/22 16:17 Urine Glucose (UA) Negative (Negative) 06/02/22 16:17 Urine Ketones Negative (Negative) 06/02/22 16:17 Urine Blood Negative (Negative) 06/02/22 16:17 Urine Nitrite Negative (Negative) 06/02/22 16:17 Urine Bilirubin Negative (Negative) 06/02/22 16:17 Urine Urobilinogen Negative (Negative) 06/02/22 16:17 Ur Leukocyte Esterase Negative (Negative) 06/02/22 16:17 Urine WBC (Auto) 0 /hpf (0-5) 06/02/22 16:17 Urine RBC (Auto) 5-10 /hpf (0-4) H 06/02/22 16:17 U Hyaline Cast (Auto) 1-5 /lpf (0-5) 06/02/22 16:17 U Epithel Cells (Auto) 0-5 /lpf (0-5) 06/02/22 16:17 Urine Bacteria (Auto) Negative (Negative) 06/02/22 16:17 Ur Random Creatinine 55.4 mg/dl 06/02/22 16:17 Ur Random Sodium 44 mmol/L 06/02/22 16:17 Ur Random Urea Nitrogn 703 mg/dL 06/02/22 16:16 Nasal Screen MRSA (PCR) Negative (Negative) 05/25/22 14:42 SARS-CoV-2 (PCR) NEGATIVE (Negative) 05/25/22 14:42 Hepatitis C Ab (EIA) NON-REACTIVE (NON-REACTIVE) 05/26/22 06:19 Hep C Ab Signal/Cutoff 0.05 (<1.00) 05/26/22 06:19 Influenza Type A (PCR) Negative (Neg) 05/25/22 14:42 Influenza Type B (PCR) Negative (Neg) 05/25/22 14:42 RSV (RT-PCR) Negative (Neg) 05/25/22 14:42 Impressions KUB X-Ray 05/25/22 20:02 KUB HISTORY: eval for constipation COMPARISON: KUB 02/25/2014. FINDINGS: Postoperative changes again noted within the left hip. Moderate to large amount of well-formed stool seen throughout the colon. No dilated loops of bowel to suggest an obstruction. No renal calculi. No ureteral calculi. Calcifications in the deep pelvis likely represent phleboliths. A gastrostomy tube is again noted within the epigastric region. No pneumoperitoneum or pneumatosis. IMPRESSION: Moderate to large amount of well-formed stool seen throughout the colon. ACT 112: Negative or not required by law. Electronically signed by: Juan Moon M.D. 05/25/2022 8:38 PM Chest X-Ray 05/28/22 08:41 XR chest 1V portable HISTORY: Follow up pneumonia. COMPARISON: Chest 05/25/2022. FINDINGS: No pneumothorax. There are low lung volumes. The heart is normal in size. Mild diffuse interstitial thickening again noted. Bibasilar opacities most pronounced on the left have improved. The upper lung zones remain clear.. IMPRESSION: Interval improvement in the patchy bibasilar densities most pronounced on the left. ACT 112: Negative or not required by law. Electronically signed by: Juan Moon M.D. 05/28/2022 10:48 AM Medications Administered Current Inpatient Medications Acetaminophen (Acetaminophen Susp 325 Mg/10.15 Ml Udc) 975 mg PO Q6H PRN PRN Reason: Pain or Fever Stop: 07/05/22 08:07 Last Admin: 06/05/22 08:15 Dose: 975 mg Albuterol (Albuterol 0.083% Nebu Soln 3 Ml Vial) 2.5 mg INH Q6H PRN; Protocol PRN Reason: ASTHMA Stop: 06/24/22 20:00 Bacitracin/Polymyxin B Sulfate (Bacitracin/Polymyx B Oph Oint 3.5 Gm Tube: Patient's Own Med) 1 appln OPL HS YUMIKO Stop: 06/25/22 20:59 Last Admin: 06/04/22 20:26 Dose: 1 appln Bisacodyl (Bisacodyl 10 Mg Supp) 10 mg AR DAILY YUMIKO Stop: 07/05/22 10:29 Last Admin: 06/05/22 12:11 Dose: 10 mg Calamine/Phenol (Menthol-Zinc Oxide 360 Appln/120 Gm Tube) 1 appln EXT QS PRN PRN Reason: PREVENT SORES ON BUTTOCKS Stop: 06/24/22 21:29 Entecavir (Entecavir 0.05 Mg/Ml Solution) 0.5 mg PEG DAILY YUMIKO Stop: 06/25/22 16:59 Last Admin: 06/05/22 08:12 Dose: 0.5 mg Enteral Nutritional Formula (Fibersource Hn 1.2 Jamie 1000 Ml Bag) 1,000 ml GT UD YUMIKO; Protocol Stop: 06/25/22 13:59 Last Admin: 06/02/22 20:08 Dose: 1,000 ml Escitalopram Oxalate (Escitalopram Oxalate 10 Mg Tab) 10 mg PO QAM YUMIKO Stop: 06/25/22 08:59 Last Admin: 06/05/22 08:11 Dose: 10 mg Famotidine (Famotidine 20 Mg Tab) 20 mg JT BID YUMIKO Stop: 06/24/22 20:59 Last Admin: 06/05/22 08:12 Dose: 20 mg Guaifenesin/Dextromethorphan (Guaifenesin/Dextrom Syrup 200mg/20mg 10ml Udc) 10 ml GT Q4H PRN PRN Reason: Cough Stop: 06/24/22 21:23 Last Admin: 05/25/22 22:08 Dose: 10 ml Heparin Sodium (Porcine) (Heparin Sod 5,000 Unit/0.5 Ml Vial) 5,000 units SQ Q8 YUMIKO Stop: 06/24/22 21:59 Last Admin: 06/05/22 12:11 Dose: 5,000 units Lactobacillus Acidophilus (Lactobacillus Acidophilus 1 Gm Pack) 1 gm PEG BID YUMIKO Stop: 06/28/22 20:59 Last Admin: 06/05/22 08:12 Dose: 1 gm Lamotrigine (Lamotrigine 100 Mg Tab) 150 mg PO HS YUMIKO Stop: 06/24/22 20:59 Last Admin: 06/04/22 20:26 Dose: 150 mg Lamotrigine (Lamotrigine 25 Mg Tab) 50 mg PO QAM YUMIKO Stop: 06/25/22 08:59 Last Admin: 06/05/22 08:12 Dose: 50 mg Levothyroxine Sodium (Levothyroxine Sodium 75 Mcg Tablet) 75 mcg GT DAILYBB YUMIKO Stop: 06/25/22 06:29 Last Admin: 06/05/22 06:14 Dose: 75 mcg Loratadine (Loratadine 1 Mg/1 Ml) 10 mg GT QAM YUMIKO Stop: 06/25/22 08:59 Last Admin: 06/05/22 08:12 Dose: 10 mg Magnesium Hydroxide (Magnesium Hydroxide Susp 30 Ml Udc) 30 ml PO Q12H PRN PRN Reason: Constipation Stop: 06/24/22 18:59 Miscellaneous (Ciclopirox~Order Awaiting Action) 1 each N/A QS YUMIKO Stop: 06/25/22 07:59 Last Admin: 06/05/22 12:11 Dose: Not Given Olanzapine (Olanzapine Zydis 5 Mg Orally Dis. Tab) 5 mg PO HS YUMIKO Stop: 06/24/22 20:59 Last Admin: 06/04/22 20:27 Dose: 5 mg Ondansetron HCl (Ondansetron Inj 2 Mg/Ml 2 Ml Vial) 4 mg IV Q6H PRN PRN Reason: Nausea Stop: 06/24/22 18:59 Polyethylene Glycol (Polyethylene (Miralax) 17 Gm Pack) 17 gm PEG DAILY YUMIKO Stop: 06/25/22 08:59 Last Admin: 06/05/22 08:13 Dose: 17 gm Psyllium Hydrophilic Mucilloid (Psyllium Or Guar Gum Fiber Powder Packet) 1 pkt PO BID YUMIKO Stop: 06/25/22 08:59 Last Admin: 06/05/22 08:13 Dose: 1 pkt Senna/Docusate Sodium (Docusate Sodium/Senna 50/8.6mg Tab) 2 tab PO HS YUMIKO Stop: 06/24/22 20:59 Last Admin: 06/04/22 20:33 Dose: 2 tab Sterile Water (Tube Feeding Water Flush) 150 ml GT Q4 YUMIKO Stop: 07/04/22 15:59 Last Admin: 06/05/22 12:11 Dose: 150 ml Vitamin D (Cholecalciferol 1,000 Units 25 Mcg Tab) 1,000 units GT QAM YUMIKO Stop: 06/25/22 08:59 Last Admin: 06/05/22 08:11 Dose: 1,000 units
[2022-06-05] MEDS: FIBERSOURCE HN 1.2 CAL 1000 ML BAG GT SCH (12:42)
[2022-06-05] MEDS: [UNRECOGNIZED DRUG - OTHER] OPL SCH (20:58)
[2022-06-05] MEDS: BACITRACIN OPL SCH (20:58)
[2022-06-05] MEDS: lamoTRIgine 100 MG TAB PO SCH (21:01)
[2022-06-05] MEDS: OLANZapine ZYDIS 5 MG ORALLY DIS. TAB PO SCH (21:02)
[2022-06-05] MEDS: DOCUSATE SODIUM/SENNA 50/8.6MG TAB PO SCH (21:07)
[2022-06-06] MEDS: guaiFENesin/DEXTROM SYRUP 200MG/20MG 10ML UDC GT PRN ×3 (01:12→14:01)
[2022-06-06] MEDS: TUBE FEEDING WATER FLUSH GT SCH ×5 (03:52→20:25)
[2022-06-06] MEDS: FIBERSOURCE HN 1.2 CAL 1000 ML BAG GT SCH (05:54)
[2022-06-06] MEDS: HEPARIN SOD 5,000 UNIT/0.5 ML VIAL SQ SCH ×3 (05:55→21:25)
[2022-06-06] MEDS: LEVOTHYROXINE SODIUM 75 MCG TABLET GT SCH (05:55)
[2022-06-06 06:45] LABS: BUN Creatinine Ratio 24.2 (10-20); Calcium 9.5 mg/dl (8.5-10.1); Creatinine Clr Calc Pharmacy 51.3 ml/min; Est GFR (African American) 69.1 ml/min; Est GFR (Non-African American) 59.6 ml/min; Magnesium 2.5 mg/dl (1.7-2.4); Phosphorus 4.6 mg/dl (2.5-4.9); Potassium 4.1 mmol/L (3.5-5.1)
[2022-06-06] MEDS: PSYLLIUM or GUAR GUM FIBER POWDER PACKET PO SCH ×2 (08:15→19:54)
[2022-06-06] MEDS: ESCITALOPRAM OXALATE 10 MG TAB PO SCH (08:15)
[2022-06-06] MEDS: lamoTRIgine 25 MG TAB PO SCH (08:15)
[2022-06-06] MEDS: LORATADINE 1 MG/1 ML GT SCH (08:15)
[2022-06-06] MEDS: LACTOBACILLUS ACIDOPHILUS 1 GM PACK PEG SCH ×2 (08:15→19:52)
[2022-06-06] MEDS: CHOLECALCIFEROL 1,000 UNITS 25 MCG TAB GT SCH (08:15)
[2022-06-06] MEDS: ENTECAVIR 0.05 MG/ML PEG SCH (08:16)
[2022-06-06] MEDS: CICLOPIROX~ORDER AWAITING ACTION SCH ×3 (08:17→23:25)
[2022-06-06] MEDS: POLYETHYLENE (MIRALAX) 17 GM PACK PEG SCH (08:21)
[2022-06-06] MEDS: FAMOTIDINE 20 MG TAB JT SCH ×2 (08:21→19:52)
[2022-06-06] MEDS: bisacodyL 10 MG SUPP PR SCH (08:21)
--- NOTE | 2022-06-06 10:44 | Hospitalist Progress Note ---
Date of Service June 06, 2022 Assessment & Plan (1) Pneumonia: Plan: - likely secondary to bilateral pneumonia on imaging - sputum culture growing pseudomonas likely causing his pneumonia - weaned of oxygen, now on RA - s/p 7 days of doxycycline and cefepime - Resolved - pending placement to rehab (2) Down syndrome: Plan: - noted (3) Dysphagia: Plan: - PEG in place - continue TFs (4) Constipation: Plan: - continue bowel regimen (5) Seizure disorder: Plan: - continue home AEDs (6) Hepatitis B carrier: Plan: - noted (7) Hypothyroidism: Plan: - continue levothyroxine (8) CKD (chronic kidney disease): Plan: - Cr near baseline of 1-1.3 - Continue TF and free water flushes - avoid nephrotoxic medications Plan DVT Ppx: SQ heparin Code status: FULL - employment law specialist Mr Montenegro during daylight hours at [phone]. PCP: Douglas Dispo: med/surg - pending placement to rehab Armin James MD [facility] Medicine Admission and Anticipated Discharge Date Admission Date: May 25, 2022 Subjective Patient with downs syndrome from senior living, hypothyroidism, dysphagia s/p PEG, chronic hep B carrier presented with worsening shortness of breath, found to have bilateral pneumonia, sputum culture growing Pseudomonas. Started on cefepime with improvement. Now pending placement to rehab. Patient does not answer many questions but when he did answer, he denied pain, shortness of breath. Review of Systems Review of Systems: all noted and negative except for above Physical Exam Physical Exam: General- unable to assess orientation but awake and alert, not in distress Eyes- anicteric Neck- no JVD Lungs- lungs more clear to occultation with intermittent ronchi, No wheezing Heart- normal rate, regular rhythm; no murmurs Abdomen- normal bowel sounds, nondistended, soft, nontender PEG tube in place-minimal erythema around the PEG tube insertion site No signs of infection Extremities- no pretibial edema, no calf tenderness Neuro- awake and alert; no gross focal neurologic deficits Skin- warm & dry Results & Data Results & Data ([facility]) Vital Signs (Past 12 Hours) Vital Signs Temp Pulse Resp BP Pulse Ox O2 Del Method 06/06/22 07:30 Room Air 06/06/22 07:31 36.6 C 65 16 96/59 L 96 Room Air Diagnostic Findings Laboratory Results WBC 4.20 K/ul (4.8-10.8) L 06/05/22 05:57 RBC 3.60 M/uL (4.63-6.08) L 06/05/22 05:57 Hgb 12.0 g/dl (14.0-18.0) L 06/05/22 05:57 Hct 35.9 % (40.1-51.0) L 06/05/22 05:57 MCV 99.7 fL (80.0-100.0) 06/05/22 05:57 MCH 33.3 pg (25.0-34.0) 06/05/22 05:57 MCHC 33.4 g/dL (32.0-36.0) 06/05/22 05:57 RDW Std Deviation 46.8 fL (36.4-46.3) H 06/05/22 05:57 RDW Coeff of Tina 13.1 % (11.5-14.5) 06/05/22 05:57 Plt Count 128 K/uL (130-400) L 06/05/22 05:57 MPV 11.1 fL (9.4-12.4) 06/05/22 05:57 Immature Gran % (Auto) 1.2 % 06/05/22 05:57 Neut % (Auto) 35.7 % 06/05/22 05:57 Lymph % (Auto) 42.6 % 06/05/22 05:57 [place] % (Auto) 13.6 % 06/05/22 05:57 Eos % (Auto) 5.5 % 06/05/22 05:57 Baso % (Auto) 1.4 % 06/05/22 05:57 Neut # (Auto) 1.50 K/uL (1.4-6.5) 06/05/22 05:57 Lymph # (Auto) 1.79 K/uL (1.2-3.4) 06/05/22 05:57 [place] # (Auto) 0.57 K/uL (0.24-0.82) 06/05/22 05:57 Eos # (Auto) 0.23 K/uL (0-0.50) 06/05/22 05:57 Baso # (Auto) 0.06 K/uL (0-0.2) 06/05/22 05:57 Immature Gran # (Auto) 0.05 K/uL (0.00-0.02) H 06/05/22 05:57 PT 10.5 Seconds (9.0-12.0) 05/25/22 14:50 INR 1.0 (0.9-1.1) 05/25/22 14:50 ABG pH 7.47 (7.35-7.45) H 05/25/22 14:50 ABG pCO2 38 mmHg (35-46) 05/25/22 14:50 ABG pO2 184 mmHg (80-95) H 05/25/22 14:50 ABG HCO3 28 mmol/L (19-24) H 05/25/22 14:50 ABG O2 Saturation > 100.0 % (90-95) H 05/25/22 14:50 ABG Base Excess 3.9 mEq/L (-9-1.8) H 05/25/22 14:50 Humberto Test Pos (Pos) 05/25/22 14:50 Oxygen Given 10L 05/25/22 14:50 Sodium 137 mmol/L (136-145) 06/06/22 06:00 Potassium 4.1 mmol/L (3.5-5.1) 06/06/22 06:00 Chloride 103 mmol/L (98-107) 06/06/22 06:00 Carbon Dioxide 29 mmol/L (21-32) 06/06/22 06:00 Anion Gap 5 (3-11) 06/06/22 06:00 BUN 31 mg/dl (6-23) H 06/06/22 06:00 Creatinine 1.28 mg/dl (0.6-1.4) 06/06/22 06:00 Est Cr Clr Drug Dosing 51.3 ml/min 06/06/22 06:00 Est GFR ( Amer) 69.1 ml/min 06/06/22 06:00 Est GFR (Non-Af Amer) 59.6 ml/min 06/06/22 06:00 BUN/Creatinine Ratio 24.2 (10-20) H 06/06/22 06:00 Glucose 112 mg/dl (70-99(Fasting)) H 06/06/22 06:00 POC Glucose 98 mg/dl (70-99) 05/26/22 23:14 Calcium 9.5 mg/dl (8.5-10.1) 06/06/22 06:00 Phosphorus 4.6 mg/dl (2.5-4.9) 06/06/22 06:00 Magnesium 2.5 mg/dl (1.7-2.4) H 06/06/22 06:00 Total Bilirubin 0.3 mg/dl (0.2-1.0) 05/25/22 13:50 AST 29 U/L (13-39) 05/25/22 13:50 ALT 13 U/L (7-52) 05/25/22 13:50 Alkaline Phosphatase 97 U/L (34-104) 05/25/22 13:50 Troponin I High Sens 5.2 pg/ml (0-20) 05/25/22 13:50 B-Natriuretic Peptide 90 pg/ml (0-100) 05/26/22 06:19 Total Protein 7.3 gm/dl (6.0-8.3) 05/25/22 13:50 Albumin 3.4 gm/dl (3.4-5.0) 05/25/22 13:50 Globulin 3.9 gm/dl (2.5-4.0) 05/25/22 13:50 Albumin/Globulin Ratio 0.9 (0.9-2) 05/25/22 13:50 Procalcitonin < 0.05 ng/ml (0-0.5) 05/25/22 13:50 TSH 6.907 uIu/ml (0.300-4.500) H 05/28/22 08:54 Free T4 0.87 ng/dl (0.61-1.60) 05/28/22 08:54 Urine Color Yellow 06/02/22 16:17 Urine Appearance Turbid (Clear) A 06/02/22 16:17 Urine pH 7.5 (4.5-7.5) 06/02/22 16:17 Ur Specific [place] 1.015 (1.000-1.030) 06/02/22 16:17 Urine Protein 1+ (Negative) H 06/02/22 16:17 Urine Glucose (UA) Negative (Negative) 06/02/22 16:17 Urine Ketones Negative (Negative) 06/02/22 16:17 Urine Blood Negative (Negative) 06/02/22 16:17 Urine Nitrite Negative (Negative) 06/02/22 16:17 Urine Bilirubin Negative (Negative) 06/02/22 16:17 Urine Urobilinogen Negative (Negative) 06/02/22 16:17 Ur Leukocyte Esterase Negative (Negative) 06/02/22 16:17 Urine WBC (Auto) 0 /hpf (0-5) 06/02/22 16:17 Urine RBC (Auto) 5-10 /hpf (0-4) H 06/02/22 16:17 U Hyaline Cast (Auto) 1-5 /lpf (0-5) 06/02/22 16:17 U Epithel Cells (Auto) 0-5 /lpf (0-5) 06/02/22 16:17 Urine Bacteria (Auto) Negative (Negative) 06/02/22 16:17 Ur Random Creatinine 55.4 mg/dl 06/02/22 16:17 Ur Random Sodium 44 mmol/L 06/02/22 16:17 Ur Random Urea Nitrogn 703 mg/dL 06/02/22 16:16 Nasal Screen MRSA (PCR) Negative (Negative) 05/25/22 14:42 SARS-CoV-2 (PCR) NEGATIVE (Negative) 05/25/22 14:42 Hepatitis C Ab (EIA) NON-REACTIVE (NON-REACTIVE) 05/26/22 06:19 Hep C Ab Signal/Cutoff 0.05 (<1.00) 05/26/22 06:19 Influenza Type A (PCR) Negative (Neg) 05/25/22 14:42 Influenza Type B (PCR) Negative (Neg) 05/25/22 14:42 RSV (RT-PCR) Negative (Neg) 05/25/22 14:42 Impressions KUB X-Ray 05/25/22 20:02 KUB HISTORY: eval for constipation COMPARISON: KUB 02/25/2014. FINDINGS: Postoperative changes again noted within the left hip. Moderate to large amount of well-formed stool seen throughout the colon. No dilated loops of bowel to suggest an obstruction. No renal calculi. No ureteral calculi. Ca lcifications in the deep pelvis likely represent phleboliths. A gastrostomy tube is again noted within the epigastric region. No pneumoperitoneum or pneumatosis. IMPRESSION: Moderate to large amount of well-formed stool seen throughout the colon. ACT 112: Negative or not required by law. Electronically signed by: Juan Moon M.D. 05/25/2022 8:38 PM Chest X-Ray 05/28/22 08:41 XR chest 1V portable HISTORY: Follow up pneumonia. COMPARISON: Chest 05/25/2022. FINDINGS: No pneumothorax. There are low lung volumes. The heart is normal in size. Mild diffuse interstitial thickening again noted. Bibasilar opacities most pronounced on the left have improved. The upper lung zones remain clear.. IMPRESSION: Interval improvement in the patchy bibasilar densities most pronounced on the left. ACT 112: Negative or not required by law. Electronically signed by: Juan Moon M.D. 05/28/2022 10:48 AM Medications Administered Current Inpatient Medications Acetaminophen (Acetaminophen Susp 325 Mg/10.15 Ml Udc) 975 mg PO Q6H PRN PRN Reason: Pain or Fever Stop: 07/05/22 08:07 Last Admin: 06/05/22 08:15 Dose: 975 mg Albuterol (Albuterol 0.083% Nebu Soln 3 Ml Vial) 2.5 mg INH Q6H PRN; Protocol PRN Reason: ASTHMA Stop: 06/24/22 20:00 Bacitracin/Polymyxin B Sulfate (Bacitracin/Polymyx B Oph Oint 3.5 Gm Tube: Patient's Own Med) 1 appln OPL HS COUNTS INCLUDE 234 BEDS AT THE [facility] Stop: 06/25/22 20:59 Last Admin: 06/05/22 20:58 Dose: 1 appln Bisacodyl (Bisacodyl 10 Mg Supp) 10 mg [place] DAILY YUMIKO Stop: 07/05/22 10:29 Last Admin: 06/06/22 08:21 Dose: 10 mg Calamine/Phenol (Menthol-Zinc Oxide 360 Appln/120 Gm Tube) 1 appln EXT QS PRN PRN Reason: PREVENT SORES ON BUTTOCKS Stop: 06/24/22 21:29 Entecavir (Entecavir 0.05 Mg/Ml Solution) 0.5 mg PEG DAILY COUNTS INCLUDE 234 BEDS AT THE [facility] Stop: 06/25/22 16:59 Last Admin: 06/06/22 08:16 Dose: 0.5 mg Enteral Nutritional Formula (Fibersource Hn 1.2 Jamie 1000 Ml Bag) 1,000 ml GT UD COUNTS INCLUDE 234 BEDS AT THE [facility]; Protocol Stop: 06/25/22 13:59 Last Admin: 06/06/22 05:54 Dose: 1,000 ml Escitalopram Oxalate (Escitalopram Oxalate 10 Mg Tab) 10 mg PO QAM COUNTS INCLUDE 234 BEDS AT THE [facility] Stop: 06/25/22 08:59 Last Admin: 06/06/22 08:15 Dose: 10 mg Famotidine (Famotidine 20 Mg Tab) 20 mg JT BID COUNTS INCLUDE 234 BEDS AT THE [facility] Stop: 06/24/22 20:59 Last Admin: 06/06/22 08:21 Dose: 20 mg Guaifenesin/Dextromethorphan (Guaifenesin/Dextrom Syrup 200mg/20mg 10ml Udc) 10 ml GT Q4H PRN PRN Reason: Cough Stop: 06/24/22 21:23 Last Admin: 06/06/22 05:55 Dose: 10 ml Heparin Sodium (Porcine) (Heparin Sod 5,000 Unit/0.5 Ml Vial) 5,000 units SQ Q8 [facility]KO Stop: 06/24/22 21:59 Last Admin: 06/06/22 05:55 Dose: 5,000 units Lactobacillus Acidophilus (Lactobacillus Acidophilus 1 Gm Pack) 1 gm PEG BID COUNTS INCLUDE 234 BEDS AT THE [facility] Stop: 06/28/22 20:59 Last Admin: 06/06/22 08:15 Dose: 1 gm Lamotrigine (Lamotrigine 100 Mg Tab) 150 mg PO HS COUNTS INCLUDE 234 BEDS AT THE [facility] Stop: 06/24/22 20:59 Last Admin: 06/05/22 21:01 Dose: 150 mg Lamotrigine (Lamotrigine 25 Mg Tab) 50 mg PO QAM COUNTS INCLUDE 234 BEDS AT THE [facility] Stop: 06/25/22 08:59 Last Admin: 06/06/22 08:15 Dose: 50 mg Levothyroxine Sodium (Levothyroxine Sodium 75 Mcg Tablet) 75 mcg GT DAILYBB COUNTS INCLUDE 234 BEDS AT THE [facility] Stop: 06/25/22 06:29 Last Admin: 06/06/22 05:55 Dose: 75 mcg Loratadine (Loratadine 1 Mg/1 Ml) 10 mg GT QAM COUNTS INCLUDE 234 BEDS AT THE [facility] Stop: 06/25/22 08:59 Last Admin: 06/06/22 08:15 Dose: 10 mg Magnesium Hydroxide (Magnesium Hydroxide Susp 30 Ml Udc) 30 ml PO Q12H PRN PRN Reason: Constipation Stop: 06/24/22 18:59 Miscellaneous (Ciclopirox~Order Awaiting Action) 1 each N/A QS COUNTS INCLUDE 234 BEDS AT THE [facility] Stop: 06/25/22 07:59 Last Admin: 06/06/22 08:17 Dose: Not Given Olanzapine (Olanzapine Zydis 5 Mg Orally Dis. Tab) 5 mg PO HS YUMIKO Stop: 06/24/22 20:59 Last Admin: 06/05/22 21:02 Dose: 5 mg Ondansetron HCl (Ondansetron Inj 2 Mg/Ml 2 Ml Vial) 4 mg IV Q6H PRN PRN Reason: Nausea Stop: 06/24/22 18:59 Polyethylene Glycol (Polyethylene (Miralax) 17 Gm Pack) 17 gm PEG DAILY YUMIKO Stop: 06/25/22 08:59 Last Admin: 06/06/22 08:21 Dose: 17 gm Psyllium Hydrophilic Mucilloid (Psyllium Or Guar Gum Fiber Powder Packet) 1 pkt PO BID YUMIKO Stop: 06/25/22 08:59 Last Admin: 06/06/22 08:15 Dose: 1 pkt Senna/Docusate Sodium (Docusate Sodium/Senna 50/8.6mg Tab) 2 tab PO HS YUMIKO Stop: 06/24/22 20:59 Last Admin: 06/05/22 21:07 Dose: 2 tab Sterile Water (Tube Feeding Water Flush) 150 ml GT Q4 YUM[facility]KO Stop: 07/04/22 15:59 Last Admin: 06/06/22 08:17 Dose: 150 ml Vitamin D (Cholecalciferol 1,000 Units 25 Mcg Tab) 1,000 units GT QAM [facility] Stop: 06/25/22 08:59 Last Admin: 06/06/22 08:15 Dose: 1,000 units
[2022-06-06] MEDS: lamoTRIgine 100 MG TAB PO SCH (19:52)
[2022-06-06] MEDS: DOCUSATE SODIUM/SENNA 50/8.6MG TAB PO SCH (19:52)
[2022-06-06] MEDS: OLANZapine ZYDIS 5 MG ORALLY DIS. TAB PO SCH (19:54)
[2022-06-06] MEDS: BACITRACIN OPL SCH (20:23)
[2022-06-06] MEDS: [UNRECOGNIZED DRUG - OTHER] OPL SCH (20:23)
[2022-06-07] MEDS: FIBERSOURCE HN 1.2 CAL 1000 ML BAG GT SCH ×2 (00:06→17:59)
[2022-06-07] MEDS: TUBE FEEDING WATER FLUSH GT SCH ×6 (00:07→20:49)
[2022-06-07] MEDS: LEVOTHYROXINE SODIUM 75 MCG TABLET GT SCH (05:50)
[2022-06-07] MEDS: HEPARIN SOD 5,000 UNIT/0.5 ML VIAL SQ SCH ×3 (05:50→20:49)
[2022-06-07] MEDS: CICLOPIROX~ORDER AWAITING ACTION SCH ×2 (07:56→15:50)
[2022-06-07] MEDS: LORATADINE 1 MG/1 ML GT SCH (08:32)
[2022-06-07] MEDS: ESCITALOPRAM OXALATE 10 MG TAB PO SCH (08:32)
[2022-06-07] MEDS: LACTOBACILLUS ACIDOPHILUS 1 GM PACK PEG SCH ×2 (08:32→20:48)
[2022-06-07] MEDS: PSYLLIUM or GUAR GUM FIBER POWDER PACKET PO SCH ×2 (08:32→20:48)
[2022-06-07] MEDS: CHOLECALCIFEROL 1,000 UNITS 25 MCG TAB GT SCH (08:32)
[2022-06-07] MEDS: lamoTRIgine 25 MG TAB PO SCH (08:32)
[2022-06-07] MEDS: POLYETHYLENE (MIRALAX) 17 GM PACK PEG SCH (08:33)
[2022-06-07] MEDS: ENTECAVIR 0.05 MG/ML PEG SCH (08:34)
[2022-06-07] MEDS: bisacodyL 10 MG SUPP PR SCH (08:34)
[2022-06-07] MEDS: FAMOTIDINE 20 MG TAB JT SCH ×2 (08:36→20:47)
--- NOTE | 2022-06-07 11:36 | Hospitalist Progress Note ---
Date of Service June 07, 2022 Assessment & Plan (1) Pneumonia: Plan: - likely secondary to bilateral pneumonia on imaging - sputum culture growing pseudomonas likely causing his pneumonia - weaned of oxygen, now on RA - s/p 7 days of doxycycline and cefepime - Resolved - pending placement to rehab (2) Down syndrome: Plan: - noted (3) Dysphagia: Plan: - PEG in place - continue TFs (4) Constipation: Plan: - continue bowel regimen (5) Seizure disorder: Plan: - continue home AEDs (6) Hepatitis B carrier: Plan: - noted (7) Hypothyroidism: Plan: - continue levothyroxine (8) CKD (chronic kidney disease): Plan: - Cr near baseline of 1-1.3 - Continue TF and free water flushes - avoid nephrotoxic medications Plan DVT Ppx: SQ heparin Code status: FULL - docketing specialist Mr Montenegro during daylight hours at [phone]. PCP: Douglas Dispo: med/surg - pending placement to rehab Armin James MD [facility] Medicine Admission and Anticipated Discharge Date Admission Date: May 25, 2022 Subjective Patient with downs syndrome from custodial, hypothyroidism, dysphagia s/p PEG, chronic hep B carrier presented with worsening shortness of breath, found to have bilateral pneumonia, sputum culture growing Pseudomonas. Started on cefepime with improvement. Now pending placement to rehab. Patient does not answer many questions but when he did answer but mostly nonverbal, he denied pain, shortness of breath. Review of Systems Review of Systems: all noted and negative except for above Physical Exam Physical Exam: General- unable to assess orientation but awake and alert, not in distress Eyes- anicteric Neck- no JVD Lungs- lungs more clear to occultation with intermittent ronchi, No wheezing Heart- normal rate, regular rhythm; no murmurs Abdomen- normal bowel sounds, nondistended, soft, nontender PEG tube in place-minimal erythema around the PEG tube insertion site No signs of infection Extremities- no pretibial edema, no calf tenderness Neuro- awake and alert; no gross focal neurologic deficits Skin- warm & dry Results & Data Results & Data ([facility]) Vital Signs (Past 12 Hours) Vital Signs Temp Pulse Resp BP Pulse Ox O2 Del Method 06/07/22 07:59 Room Air 06/07/22 07:43 36.5 C 71 16 119/76 95 Room Air Diagnostic Findings Laboratory Results WBC 4.20 K/ul (4.8-10.8) L 06/05/22 05:57 RBC 3.60 M/uL (4.63-6.08) L 06/05/22 05:57 Hgb 12.0 g/dl (14.0-18.0) L 06/05/22 05:57 Hct 35.9 % (40.1-51.0) L 06/05/22 05:57 MCV 99.7 fL (80.0-100.0) 06/05/22 05:57 MCH 33.3 pg (25.0-34.0) 06/05/22 05:57 MCHC 33.4 g/dL (32.0-36.0) 06/05/22 05:57 RDW Std Deviation 46.8 fL (36.4-46.3) H 06/05/22 05:57 RDW Coeff of Tina 13.1 % (11.5-14.5) 06/05/22 05:57 Plt Count 128 K/uL (130-400) L 06/05/22 05:57 MPV 11.1 fL (9.4-12.4) 06/05/22 05:57 Immature Gran % (Auto) 1.2 % 06/05/22 05:57 Neut % (Auto) 35.7 % 06/05/22 05:57 Lymph % (Auto) 42.6 % 06/05/22 05:57 [place] % (Auto) 13.6 % 06/05/22 05:57 Eos % (Auto) 5.5 % 06/05/22 05:57 Baso % (Auto) 1.4 % 06/05/22 05:57 Neut # (Auto) 1.50 K/uL (1.4-6.5) 06/05/22 05:57 Lymph # (Auto) 1.79 K/uL (1.2-3.4) 06/05/22 05:57 [place] # (Auto) 0.57 K/uL (0.24-0.82) 06/05/22 05:57 Eos # (Auto) 0.23 K/uL (0-0.50) 06/05/22 05:57 Baso # (Auto) 0.06 K/uL (0-0.2) 06/05/22 05:57 Immature Gran # (Auto) 0.05 K/uL (0.00-0.02) H 06/05/22 05:57 PT 10.5 Seconds (9.0-12.0) 05/25/22 14:50 INR 1.0 (0.9-1.1) 05/25/22 14:50 ABG pH 7.47 (7.35-7.45) H 05/25/22 14:50 ABG pCO2 38 mmHg (35-46) 05/25/22 14:50 ABG pO2 184 mmHg (80-95) H 05/25/22 14:50 ABG HCO3 28 mmol/L (19-24) H 05/25/22 14:50 ABG O2 Saturation > 100.0 % (90-95) H 05/25/22 14:50 ABG Base Excess 3.9 mEq/L (-9-1.8) H 05/25/22 14:50 Humberto Test Pos (Pos) 05/25/22 14:50 Oxygen Given 10L 05/25/22 14:50 Sodium 137 mmol/L (136-145) 06/06/22 06:00 Potassium 4.1 mmol/L (3.5-5.1) 06/06/22 06:00 Chloride 103 mmol/L (98-107) 06/06/22 06:00 Carbon Dioxide 29 mmol/L (21-32) 06/06/22 06:00 Anion Gap 5 (3-11) 06/06/22 06:00 BUN 31 mg/dl (6-23) H 06/06/22 06:00 Creatinine 1.28 mg/dl (0.6-1.4) 06/06/22 06:00 Est Cr Clr Drug Dosing 51.3 ml/min 06/06/22 06:00 Est GFR ( Amer) 69.1 ml/min 06/06/22 06:00 Est GFR (Non-Af Amer) 59.6 ml/min 06/06/22 06:00 BUN/Creatinine Ratio 24.2 (10-20) H 06/06/22 06:00 Glucose 112 mg/dl (70-99(Fasting)) H 06/06/22 06:00 POC Glucose 98 mg/dl (70-99) 05/26/22 23:14 Calcium 9.5 mg/dl (8.5-10.1) 06/06/22 06:00 Phosphorus 4.6 mg/dl (2.5-4.9) 06/06/22 06:00 Magnesium 2.5 mg/dl (1.7-2.4) H 06/06/22 06:00 Total Bilirubin 0.3 mg/dl (0.2-1.0) 05/25/22 13:50 AST 29 U/L (13-39) 05/25/22 13:50 ALT 13 U/L (7-52) 05/25/22 13:50 Alkaline Phosphatase 97 U/L (34-104) 05/25/22 13:50 Troponin I High Sens 5.2 pg/ml (0-20) 05/25/22 13:50 B-Natriuretic Peptide 90 pg/ml (0-100) 05/26/22 06:19 Total Protein 7.3 gm/dl (6.0-8.3) 05/25/22 13:50 Albumin 3.4 gm/dl (3.4-5.0) 05/25/22 13:50 Globulin 3.9 gm/dl (2.5-4.0) 05/25/22 13:50 Albumin/Globulin Ratio 0.9 (0.9-2) 05/25/22 13:50 Procalcitonin < 0.05 ng/ml (0-0.5) 05/25/22 13:50 TSH 6.907 uIu/ml (0.300-4.500) H 05/28/22 08:54 Free T4 0.87 ng/dl (0.61-1.60) 05/28/22 08:54 Urine Color Yellow 06/02/22 16:17 Urine Appearance Turbid (Clear) A 06/02/22 16:17 Urine pH 7.5 (4.5-7.5) 06/02/22 16:17 Ur Specific [place] 1.015 (1.000-1.030) 06/02/22 16:17 Urine Protein 1+ (Negative) H 06/02/22 16:17 Urine Glucose (UA) Negative (Negative) 06/02/22 16:17 Urine Ketones Negative (Negative) 06/02/22 16:17 Urine Blood Negative (Negative) 06/02/22 16:17 Urine Nitrite Negative (Negative) 06/02/22 16:17 Urine Bilirubin Negative (Negative) 06/02/22 16:17 Urine Urobilinogen Negative (Negative) 06/02/22 16:17 Ur Leukocyte Esterase Negative (Negative) 06/02/22 16:17 Urine WBC (Auto) 0 /hpf (0-5) 06/02/22 16:17 Urine RBC (Auto) 5-10 /hpf (0-4) H 06/02/22 16:17 U Hyaline Cast (Auto) 1-5 /lpf (0-5) 06/02/22 16:17 U Epithel Cells (Auto) 0-5 /lpf (0-5) 06/02/22 16:17 Urine Bacteria (Auto) Negative (Negative) 06/02/22 16:17 Ur Random Creatinine 55.4 mg/dl 06/02/22 16:17 Ur Random Sodium 44 mmol/L 06/02/22 16:17 Ur Random Urea Nitrogn 703 mg/dL 06/02/22 16:16 Nasal Screen MRSA (PCR) Negative (Negative) 05/25/22 14:42 SARS-CoV-2 (PCR) NEGATIVE (Negative) 05/25/22 14:42 Hepatitis C Ab (EIA) NON-REACTIVE (NON-REACTIVE) 05/26/22 06:19 Hep C Ab Signal/Cutoff 0.05 (<1.00) 05/26/22 06:19 Influenza Type A (PCR) Negative (Neg) 05/25/22 14:42 Influenza Type B (PCR) Negative (Neg) 05/25/22 14:42 RSV (RT-PCR) Negative (Neg) 05/25/22 14:42 Impressions KUB X-Ray 05/25/22 20:02 KUB HISTORY: eval for constipation COMPARISON: KUB 02/25/2014. FINDINGS: Postoperative changes again noted within the left hip. Moderate to large amount of well-formed stool seen throughout the colon. No dilated loops of bowel to suggest an obstruction. No renal calculi. No ureteral calculi. Calcifications in the deep pelvis likely represent phleboliths. A gastrostomy tube is again noted within the epigastric region. No pneumoperitoneum or pneumatosis. IMPRESSION: Moderate to large amount of well-formed stool seen throughout the colon. ACT 112: Negative or not required by law. Electronically signed by: Juan Moon M.D. 05/25/2022 8:38 PM Chest X-Ray 05/28/22 08:41 XR chest 1V portable HISTORY: Follow up pneumonia. COMPARISON: Chest 05/25/2022. FINDINGS: No pneumothorax. There are low lung volumes. The heart is normal in size. Mild diffuse interstitial thickening again noted. Bibasilar opacities most pronounced on the left have improved. The upper lung zones remain clear.. IMPRESSION: Interval improvement in the patchy bibasilar densities most pronounced on the left. ACT 112: Negative or not required by law. Electronically signed by: Juan Moon M.D. 05/28/2022 10:48 AM Medications Administered Current Inpatient Medications Acetaminophen (Acetaminophen Susp 325 Mg/10.15 Ml Udc) 975 mg PO Q6H PRN PRN Reason: Pain or Fever Stop: 07/05/22 08:07 Last Admin: 06/05/22 08:15 Dose: 975 mg Albuterol (Albuterol 0.083% Nebu Soln 3 Ml Vial) 2.5 mg INH Q6H PRN; Protocol PRN Reason: ASTHMA Stop: 06/24/22 20:00 Bacitracin/Polymyxin B Sulfate (Bacitracin/Polymyx B Oph Oint 3.5 Gm Tube: Patient's Own Med) 1 appln OPL HS [facility]KO Stop: 06/25/22 20:59 Last Admin: 06/06/22 20:23 Dose: 1 appln Bisacodyl (Bisacodyl 10 Mg Supp) 10 mg [place] DAILY [facility] Stop: 07/05/22 10:29 Last Admin: 06/07/22 08:34 Dose: Not Given Calamine/Phenol (Menthol-Zinc Oxide 360 Appln/120 Gm Tube) 1 appln EXT QS PRN PRN Reason: PREVENT SORES ON BUTTOCKS Stop: 06/24/22 21:29 Entecavir (Entecavir 0.05 Mg/Ml Solution) 0.5 mg PEG DAILY [facility] Stop: 06/25/22 16:59 Last Admin: 06/07/22 08:34 Dose: 0.5 mg Enteral Nutritional Formula (Fibersource Hn 1.2 Jamie 1000 Ml Bag) 1,000 ml GT UD [facility]; Protocol Stop: 06/25/22 13:59 Last Admin: 06/07/22 00:06 Dose: 1,000 ml Escitalopram Oxalate (Escitalopram Oxalate 10 Mg Tab) 10 mg PO QAM [facility] Stop: 06/25/22 08:59 Last Admin: 06/07/22 08:32 Dose: 10 mg Famotidine (Famotidine 20 Mg Tab) 20 mg JT BID [facility] Stop: 06/24/22 20:59 Last Admin: 06/07/22 08:36 Dose: 20 mg Guaifenesin/Dextromethorphan (Guaifenesin/Dextrom Syrup 200mg/20mg 10ml Udc) 10 ml GT Q4H PRN PRN Reason: Cough Stop: 06/24/22 21:23 Last Admin: 06/06/22 14:01 Dose: 10 ml Heparin Sodium (Porcine) (Heparin Sod 5,000 Unit/0.5 Ml Vial) 5,000 units SQ Q8 [facility] Stop: 06/24/22 21:59 Last Admin: 06/07/22 05:50 Dose: 5,000 units Lactobacillus Acidophilus (Lactobacillus Acidophilus 1 Gm Pack) 1 gm PEG BID [facility] Stop: 06/28/22 20:59 Last Admin: 06/07/22 08:32 Dose: 1 gm Lamotrigine (Lamotrigine 100 Mg Tab) 150 mg PO HS [facility] Stop: 06/24/22 20:59 Last Admin: 06/06/22 19:52 Dose: 150 mg Lamotrigine (Lamotrigine 25 Mg Tab) 50 mg PO QAM [facility] Stop: 06/25/22 08:59 Last Admin: 06/07/22 08:32 Dose: 50 mg Levothyroxine Sodium (Levothyroxine Sodium 75 Mcg Tablet) 75 mcg GT DAILYBB [facility] Stop: 06/25/22 06:29 Last Admin: 06/07/22 05:50 Dose: 75 mcg Loratadine (Loratadine 1 Mg/1 Ml) 10 mg GT QAM [facility] Stop: 06/25/22 08:59 Last Admin: 06/07/22 08:32 Dose: 10 mg Magnesium Hydroxide (Magnesium Hydroxide Susp 30 Ml Udc) 30 ml PO Q12H PRN PRN Reason: Constipation Stop: 06/24/22 18:59 Miscellaneous (Ciclopirox~Order Awaiting Action) 1 each N/A QS [facility] Stop: 06/25/22 07:59 Last Admin: 06/07/22 07:56 Dose: Not Given Olanzapine (Olanzapine Zydis 5 Mg Orally Dis. Tab) 5 mg PO HS [facility] Stop: 06/24/22 20:59 Last Admin: 06/06/22 19:54 Dose: 5 mg Ondansetron HCl (Ondansetron Inj 2 Mg/Ml 2 Ml Vial) 4 mg IV Q6H PRN PRN Reason: Nausea Stop: 06/24/22 18:59 Polyethylene Glycol (Polyethylene (Miralax) 17 Gm Pack) 17 gm PEG DAILY [facility] Stop: 06/25/22 08:59 Last Admin: 06/07/22 08:33 Dose: Not Given Psyllium Hydrophilic Mucilloid (Psyllium Or Guar Gum Fiber Powder Packet) 1 pkt PO BID [facility] Stop: 06/25/22 08:59 Last Admin: 06/07/22 08:32 Dose: 1 pkt Senna/Docusate Sodium (Docusate Sodium/Senna 50/8.6mg Tab) 2 tab PO HS [facility] Stop: 06/24/22 20:59 Last Admin: 06/06/22 19:52 Dose: 2 tab Sterile Water (Tube Feeding Water Flush) 150 ml GT Q4 [facility] Stop: 07/04/22 15:59 Last Admin: 06/07/22 07:57 Dose: 150 ml Vitamin D (Cholecalciferol 1,000 Units 25 Mcg Tab) 1,000 units GT QAM [facility] Stop: 06/25/22 08:59 Last Admin: 06/07/22 08:32 Dose: 1,000 units
[2022-06-07] MEDS: OLANZapine ZYDIS 5 MG ORALLY DIS. TAB PO SCH (20:47)
[2022-06-07] MEDS: lamoTRIgine 100 MG TAB PO SCH (20:48)
[2022-06-07] MEDS: BACITRACIN OPL SCH (20:49)
[2022-06-07] MEDS: [UNRECOGNIZED DRUG - OTHER] OPL SCH (20:49)
[2022-06-07] MEDS: DOCUSATE SODIUM/SENNA 50/8.6MG TAB PO SCH (20:49)
[2022-06-08] MEDS: CICLOPIROX~ORDER AWAITING ACTION SCH ×3 (00:16→15:24)
[2022-06-08] MEDS: TUBE FEEDING WATER FLUSH GT SCH ×6 (00:16→20:17)
[2022-06-08] MEDS: HEPARIN SOD 5,000 UNIT/0.5 ML VIAL SQ SCH ×3 (05:39→23:07)
[2022-06-08] MEDS: LEVOTHYROXINE SODIUM 75 MCG TABLET GT SCH (05:39)
[2022-06-08] MEDS: lamoTRIgine 25 MG TAB PO SCH (08:13)
[2022-06-08] MEDS: CHOLECALCIFEROL 1,000 UNITS 25 MCG TAB GT SCH (08:14)
[2022-06-08] MEDS: PSYLLIUM or GUAR GUM FIBER POWDER PACKET PO SCH ×2 (08:14→20:00)
[2022-06-08] MEDS: ESCITALOPRAM OXALATE 10 MG TAB PO SCH (08:14)
[2022-06-08] MEDS: LACTOBACILLUS ACIDOPHILUS 1 GM PACK PEG SCH ×2 (08:14→20:20)
[2022-06-08] MEDS: LORATADINE 1 MG/1 ML GT SCH (08:14)
[2022-06-08] MEDS: ENTECAVIR 0.05 MG/ML PEG SCH (08:15)
[2022-06-08] MEDS: FAMOTIDINE 20 MG TAB JT SCH ×2 (08:15→20:20)
[2022-06-08] MEDS: bisacodyL 10 MG SUPP PR SCH (08:22)
[2022-06-08] MEDS: POLYETHYLENE (MIRALAX) 17 GM PACK PEG SCH (08:22)
[2022-06-08 09:59] LABS: BUN Creatinine Ratio 22.8 (10-20); Calcium 9.5 mg/dl (8.5-10.1); Creatinine Clr Calc Pharmacy 53.3 ml/min; Est GFR (African American) 72.5 ml/min; Est GFR (Non-African American) 62.5 ml/min; Magnesium 2.4 mg/dl (1.7-2.4); Phosphorus 4.4 mg/dl (2.5-4.9); Potassium 4.4 mmol/L (3.5-5.1)
--- NOTE | 2022-06-08 11:31 | Hospitalist Progress Note ---
Date of Service June 08, 2022 Assessment & Plan (1) Pneumonia: Plan: - likely secondary to bilateral pneumonia on imaging - sputum culture growing pseudomonas likely causing his pneumonia - weaned of oxygen, now on RA - s/p 7 days of doxycycline and cefepime - Resolved - pending placement to rehab (2) Down syndrome: Plan: - noted (3) Dysphagia: Plan: - PEG in place - continue TFs (4) Constipation: Plan: - continue bowel regimen (5) Seizure disorder: Plan: - continue home AEDs (6) Hepatitis B carrier: Plan: - noted (7) Hypothyroidism: Plan: - continue levothyroxine (8) CKD (chronic kidney disease): Plan: - Cr near baseline of 1-1.3 - Continue TF and free water flushes - avoid nephrotoxic medications Plan DVT Ppx: SQ heparin Code status: FULL - document imaging specialist Mr Montenegro during daylight hours at [phone]. PCP: Douglas Dispo: med/surg - pending placement to rehab Armin James MD [facility] Medicine Admission and Anticipated Discharge Date Admission Date: May 25, 2022 Subjective Patient with downs syndrome from [facility], hypothyroidism, dysphagia s/p PEG, chronic hep B carrier presented with worsening shortness of breath, found to have bilateral pneumonia, sputum culture growing Pseudomonas. Started on cefepime with improvement. Now pending placement to rehab. Patient does not answer many questions but when he did answer but mostly nonverbal, he denied pain, shortness of breath. Review of Systems Review of Systems: all noted and negative except for above Physical Exam Physical Exam: General- unable to assess orientation but awake and alert, not in distress Eyes- anicteric Neck- no JVD Lungs- lungs more clear to occultation with intermittent ronchi, No wheezing Heart- normal rate, regular rhythm; no murmurs Abdomen- normal bowel sounds, nondistended, soft, nontender PEG tube in place-minimal erythema around the PEG tube insertion site No signs of infection Extremities- no pretibial edema, no calf tenderness Neuro- awake and alert; no gross focal neurologic deficits Skin- warm & dry Results & Data Results & Data ([facility]) Vital Signs (Past 12 Hours) Vital Signs Temp Pulse Pulse Resp BP BP Pulse Ox 06/08/22 09:23 06/08/22 07:58 77 117/76 95 06/08/22 07:25 37 C 75 17 90/52 L 95 O2 Del Method 06/08/22 09:23 Room Air 06/08/22 07:58 Room Air 06/08/22 07:25 Room Air Diagnostic Findings Laboratory Results WBC 4.20 K/ul (4.8-10.8) L 06/05/22 05:57 RBC 3.60 M/uL (4.63-6.08) L 06/05/22 05:57 Hgb 12.0 g/dl (14.0-18.0) L 06/05/22 05:57 Hct 35.9 % (40.1-51.0) L 06/05/22 05:57 MCV 99.7 fL (80.0-100.0) 06/05/22 05:57 MCH 33.3 pg (25.0-34.0) 06/05/22 05:57 MCHC 33.4 g/dL (32.0-36.0) 06/05/22 05:57 RDW Std Deviation 46.8 fL (36.4-46.3) H 06/05/22 05:57 RDW Coeff of Tina 13.1 % (11.5-14.5) 06/05/22 05:57 Plt Count 128 K/uL (130-400) L 06/05/22 05:57 MPV 11.1 fL (9.4-12.4) 06/05/22 05:57 Immature Gran % (Auto) 1.2 % 06/05/22 05:57 Neut % (Auto) 35.7 % 06/05/22 05:57 Lymph % (Auto) 42.6 % 06/05/22 05:57 Campbell % (Auto) 13.6 % 06/05/22 05:57 Eos % (Auto) 5.5 % 06/05/22 05:57 Baso % (Auto) 1.4 % 06/05/22 05:57 Neut # (Auto) 1.50 K/uL (1.4-6.5) 06/05/22 05:57 Lymph # (Auto) 1.79 K/uL (1.2-3.4) 06/05/22 05:57 Campbell # (Auto) 0.57 K/uL (0.24-0.82) 06/05/22 05:57 Eos # (Auto) 0.23 K/uL (0-0.50) 06/05/22 05:57 Baso # (Auto) 0.06 K/uL (0-0.2) 06/05/22 05:57 Immature Gran # (Auto) 0.05 K/uL (0.00-0.02) H 06/05/22 05:57 PT 10.5 Seconds (9.0-12.0) 05/25/22 14:50 INR 1.0 (0.9-1.1) 05/25/22 14:50 ABG pH 7.47 (7.35-7.45) H 05/25/22 14:50 ABG pCO2 38 mmHg (35-46) 05/25/22 14:50 ABG pO2 184 mmHg (80-95) H 05/25/22 14:50 ABG HCO3 28 mmol/L (19-24) H 05/25/22 14:50 ABG O2 Saturation > 100.0 % (90-95) H 05/25/22 14:50 ABG Base Excess 3.9 mEq/L (-9-1.8) H 05/25/22 14:50 Humberto Test Pos (Pos) 05/25/22 14:50 Oxygen Given 10L 05/25/22 14:50 Sodium 135 mmol/L (136-145) L 06/08/22 09:13 Potassium 4.4 mmol/L (3.5-5.1) 06/08/22 09:13 Chloride 100 mmol/L (98-107) 06/08/22 09:13 Carbon Dioxide 29 mmol/L (21-32) 06/08/22 09:13 Anion Gap 6 (3-11) 06/08/22 09:13 BUN 28 mg/dl (6-23) H 06/08/22 09:13 Creatinine 1.23 mg/dl (0.6-1.4) 06/08/22 09:13 Est Cr Clr Drug Dosing 53.3 ml/min 06/08/22 09:13 Est GFR ( Amer) 72.5 ml/min 06/08/22 09:13 Est GFR (Non-Af Amer) 62.5 ml/min 06/08/22 09:13 BUN/Creatinine Ratio 22.8 (10-20) H 06/08/22 09:13 Glucose 117 mg/dl (70-99(Fasting)) H 06/08/22 09:13 POC Glucose 98 mg/dl (70-99) 05/26/22 23:14 Calcium 9.5 mg/dl (8.5-10.1) 06/08/22 09:13 Phosphorus 4.4 mg/dl (2.5-4.9) 06/08/22 09:13 Magnesium 2.4 mg/dl (1.7-2.4) 06/08/22 09:13 Total Bilirubin 0.3 mg/dl (0.2-1.0) 05/25/22 13:50 AST 29 U/L (13-39) 05/25/22 13:50 ALT 13 U/L (7-52) 05/25/22 13:50 Alkaline Phosphatase 97 U/L (34-104) 05/25/22 13:50 Troponin I High Sens 5.2 pg/ml (0-20) 05/25/22 13:50 B-Natriuretic Peptide 90 pg/ml (0-100) 05/26/22 06:19 Total Protein 7.3 gm/dl (6.0-8.3) 05/25/22 13:50 Albumin 3.4 gm/dl (3.4-5.0) 05/25/22 13:50 Globulin 3.9 gm/dl (2.5-4.0) 05/25/22 13:50 Albumin/Globulin Ratio 0.9 (0.9-2) 05/25/22 13:50 Procalcitonin < 0.05 ng/ml (0-0.5) 05/25/22 13:50 TSH 6.907 uIu/ml (0.300-4.500) H 05/28/22 08:54 Free T4 0.87 ng/dl (0.61-1.60) 05/28/22 08:54 Urine Color Yellow 06/02/22 16:17 Urine Appearance Turbid (Clear) A 06/02/22 16:17 Urine pH 7.5 (4.5-7.5) 06/02/22 16:17 Ur Specific Faith 1.015 (1.000-1.030) 06/02/22 16:17 Urine Protein 1+ (Negative) H 06/02/22 16:17 Urine Glucose (UA) Negative (Negative) 06/02/22 16:17 Urine Ketones Negative (Negative) 06/02/22 16:17 Urine Blood Negative (Negative) 06/02/22 16:17 Urine Nitrite Negative (Negative) 06/02/22 16:17 Urine Bilirubin Negative (Negative) 06/02/22 16:17 Urine Urobilinogen Negative (Negative) 06/02/22 16:17 Ur Leukocyte Esterase Negative (Negative) 06/02/22 16:17 Urine WBC (Auto) 0 /hpf (0-5) 06/02/22 16:17 Urine RBC (Auto) 5-10 /hpf (0-4) H 06/02/22 16:17 U Hyaline Cast (Auto) 1-5 /lpf (0-5) 06/02/22 16:17 U Epithel Cells (Auto) 0-5 /lpf (0-5) 06/02/22 16:17 Urine Bacteria (Auto) Negative (Negative) 06/02/22 16:17 Ur Random Creatinine 55.4 mg/dl 06/02/22 16:17 Ur Random Sodium 44 mmol/L 06/02/22 16:17 Ur Random Urea Nitrogn 703 mg/dL 06/02/22 16:16 Nasal Screen MRSA (PCR) Negative (Negative) 05/25/22 14:42 SARS-CoV-2 (PCR) NEGATIVE (Negative) 05/25/22 14:42 Hepatitis C Ab (EIA) NON-REACTIVE (NON-REACTIVE) 05/26/22 06:19 Hep C Ab Signal/Cutoff 0.05 (<1.00) 05/26/22 06:19 Influenza Type A (PCR) Negative (Neg) 05/25/22 14:42 Influenza Type B (PCR) Negative (Neg) 05/25/22 14:42 RSV (RT-PCR) Negative (Neg) 05/25/22 14:42 Impressions KUB X-Ray 05/25/22 20:02 KUB HISTORY: eval for constipation COMPARISON: KUB 02/25/2014. FINDINGS: Postoperative changes again noted within the left hip. Moderate to large amount of well-formed stool seen throughout the colon. No dilated loops of bowel to suggest an obstruction. No renal calculi. No ureteral calculi. Calcifications in the deep pelvis likely represent phleboliths. A gastrostomy tube is again noted within the epigastric region. No pneumoperitoneum or pneumatosis. IMPRESSION: Moderate to large amount of well-formed stool seen throughout the colon. ACT 112: Negative or not required by law. Electronically signed by: Juan Moon M.D. 05/25/2022 8:38 PM Chest X-Ray 05/28/22 08:41 XR chest 1V portable HISTORY: Follow up pneumonia. COMPARISON: Chest 05/25/2022. FINDINGS: No pneumothorax. There are low lung volumes. The heart is normal in size. Mild diffuse interstitial thickening again noted. Bibasilar opacities most pronounced on the left have improved. The upper lung zones remain clear.. IMPRESSION: Interval improvement in the patchy bibasilar densities most pronounced on the left. ACT 112: Negative or not required by law. Electronically signed by: Juan Moon M.D. 05/28/2022 10:48 AM Medications Administered Current Inpatient Medications Acetaminophen (Acetaminophen Susp 325 Mg/10.15 Ml Udc) 975 mg PO Q6H PRN PRN Reason: Pain or Fever Stop: 07/05/22 08:07 Last Admin: 06/05/22 08:15 Dose: 975 mg Albuterol (Albuterol 0.083% Nebu Soln 3 Ml Vial) 2.5 mg INH Q6H PRN; Protocol PRN Reason: ASTHMA Stop: 06/24/22 20:00 Bacitracin/Polymyxin B Sulfate (Bacitracin/Polymyx B Oph Oint 3.5 Gm Tube: Patient's Own Med) 1 appln OPL HS [facility] Stop: 06/25/22 20:59 Last Admin: 06/07/22 20:49 Dose: 1 appln Bisacodyl (Bisacodyl 10 Mg Supp) 10 mg VA DAILY YUMIKO Stop: 07/05/22 10:29 Last Admin: 06/08/22 08:22 Dose: 10 mg Calamine/Phenol (Menthol-Zinc Oxide 360 Appln/120 Gm Tube) 1 appln EXT QS PRN PRN Reason: PREVENT SORES ON BUTTOCKS Stop: 06/24/22 21:29 Entecavir (Entecavir 0.05 Mg/Ml Solution) 0.5 mg PEG DAILY [facility] Stop: 06/25/22 16:59 Last Admin: 06/08/22 08:15 Dose: 0.5 mg Enteral Nutritional Formula (Fibersource Hn 1.2 Jamie 1000 Ml Bag) 1,000 ml GT UD YUMIKO; Protocol Stop: 06/25/22 13:59 Last Admin: 06/07/22 17:59 Dose: 1,000 ml Escitalopram Oxalate (Escitalopram Oxalate 10 Mg Tab) 10 mg PO QAM [facility]KO Stop: 06/25/22 08:59 Last Admin: 06/08/22 08:14 Dose: 10 mg Famotidine (Famotidine 20 Mg Tab) 20 mg JT BID YUM[facility]KO Stop: 06/24/22 20:59 Last Admin: 06/08/22 08:15 Dose: 20 mg Guaifenesin/Dextromethorphan (Guaifenesin/Dextrom Syrup 200mg/20mg 10ml Udc) 10 ml GT Q4H PRN PRN Reason: Cough Stop: 06/24/22 21:23 Last Admin: 06/06/22 14:01 Dose: 10 ml Heparin Sodium (Porcine) (Heparin Sod 5,000 Unit/0.5 Ml Vial) 5,000 units SQ Q8 YUM[facility]KO Stop: 06/24/22 21:59 Last Admin: 06/08/22 05:39 Dose: 5,000 units Lactobacillus Acidophilus (Lactobacillus Acidophilus 1 Gm Pack) 1 gm PEG BID YUMIKO Stop: 06/28/22 20:59 Last Admin: 06/08/22 08:14 Dose: 1 gm Lamotrigine (Lamotrigine 100 Mg Tab) 150 mg PO HS [facility] Stop: 06/24/22 20:59 Last Admin: 06/07/22 20:48 Dose: 150 mg Lamotrigine (Lamotrigine 25 Mg Tab) 50 mg PO QAM [facility] Stop: 06/25/22 08:59 Last Admin: 06/08/22 08:13 Dose: 50 mg Levothyroxine Sodium (Levothyroxine Sodium 75 Mcg Tablet) 75 mcg GT DAILYBB [facility]UMIKO Stop: 06/25/22 06:29 Last Admin: 06/08/22 05:39 Dose: 75 mcg Loratadine (Loratadine 1 Mg/1 Ml) 10 mg GT QAM [facility] Stop: 06/25/22 08:59 Last Admin: 06/08/22 08:14 Dose: 10 mg Magnesium Hydroxide (Magnesium Hydroxide Susp 30 Ml Udc) 30 ml PO Q12H PRN PRN Reason: Constipation Stop: 06/24/22 18:59 Miscellaneous (Ciclopirox~Order Awaiting Action) 1 each N/A QS [facility]KO Stop: 06/25/22 07:59 Last Admin: 06/08/22 07:26 Dose: Not Given Olanzapine (Olanzapine Zydis 5 Mg Orally Dis. Tab) 5 mg PO HS [facility] Stop: 06/24/22 20:59 Last Admin: 06/07/22 20:47 Dose: 5 mg Ondansetron HCl (Ondansetron Inj 2 Mg/Ml 2 Ml Vial) 4 mg IV Q6H PRN PRN Reason: Nausea Stop: 06/24/22 18:59 Polyethylene Glycol (Polyethylene (Miralax) 17 Gm Pack) 17 gm PEG DAILY [facility]KO Stop: 06/25/22 08:59 Last Admin: 06/08/22 08:22 Dose: 17 gm Psyllium Hydrophilic Mucilloid (Psyllium Or Guar Gum Fiber Powder Packet) 1 pkt PO BID [facility] Stop: 06/25/22 08:59 Last Admin: 06/08/22 08:14 Dose: 1 pkt Senna/Docusate Sodium (Docusate Sodium/Senna 50/8.6mg Tab) 2 tab PO HS [facility]KO Stop: 06/24/22 20:59 Last Admin: 06/07/22 20:49 Dose: Not Given Sterile Water (Tube Feeding Water Flush) 150 ml GT Q4 [facility] Stop: 07/04/22 15:59 Last Admin: 06/08/22 07:26 Dose: 150 ml Vitamin D (Cholecalciferol 1,000 Units 25 Mcg Tab) 1,000 units GT QAM [facility] Stop: 06/25/22 08:59 Last Admin: 06/08/22 08:14 Dose: 1,000 units
[2022-06-08] MEDS: OLANZapine ZYDIS 5 MG ORALLY DIS. TAB PO SCH (20:20)
[2022-06-08] MEDS: DOCUSATE SODIUM/SENNA 50/8.6MG TAB PO SCH (20:20)
[2022-06-08] MEDS: lamoTRIgine 100 MG TAB PO SCH (20:20)
[2022-06-08] MEDS: [UNRECOGNIZED DRUG - OTHER] OPL SCH (20:20)
[2022-06-08] MEDS: BACITRACIN OPL SCH (20:20)
[2022-06-09] MEDS: CICLOPIROX~ORDER AWAITING ACTION SCH ×3 (00:09→15:11)
[2022-06-09] MEDS: TUBE FEEDING WATER FLUSH GT SCH ×6 (00:09→20:37)
[2022-06-09] MEDS: LEVOTHYROXINE SODIUM 75 MCG TABLET GT SCH (05:35)
[2022-06-09] MEDS: HEPARIN SOD 5,000 UNIT/0.5 ML VIAL SQ SCH ×3 (05:36→22:08)
[2022-06-09] MEDS: FIBERSOURCE HN 1.2 CAL 1000 ML BAG GT SCH ×2 (07:15→07:29)
[2022-06-09] MEDS: lamoTRIgine 25 MG TAB PO SCH (08:26)
[2022-06-09] MEDS: LACTOBACILLUS ACIDOPHILUS 1 GM PACK PEG SCH ×2 (08:27→20:37)
[2022-06-09] MEDS: PSYLLIUM or GUAR GUM FIBER POWDER PACKET PO SCH ×2 (08:27→20:37)
[2022-06-09] MEDS: ENTECAVIR 0.05 MG/ML PEG SCH (08:27)
[2022-06-09] MEDS: ESCITALOPRAM OXALATE 10 MG TAB PO SCH (08:27)
[2022-06-09] MEDS: LORATADINE 1 MG/1 ML GT SCH (08:27)
[2022-06-09] MEDS: bisacodyL 10 MG SUPP PR SCH (08:28)
[2022-06-09] MEDS: POLYETHYLENE (MIRALAX) 17 GM PACK PEG SCH (09:37)
[2022-06-09] MEDS: FAMOTIDINE 20 MG TAB JT SCH ×2 (09:37→20:36)
[2022-06-09] MEDS: CHOLECALCIFEROL 1,000 UNITS 25 MCG TAB GT SCH (09:37)
--- NOTE | 2022-06-09 16:37 | Hospitalist Progress Note ---
Date of Service June 09, 2022 Assessment & Plan (1) Pneumonia: Plan: - Bilateral pneumonia, secondary to Pseudomonas - sputum culture growing pseudomonas likely causing his pneumonia - weaned of oxygen, now on RA - s/p 7 days of doxycycline and cefepime - Resolved -Awaiting acceptance to rehab (2) Down syndrome: Plan: - noted (3) Dysphagia: Plan: - PEG in place -Tolerating tube feedings (4) Constipation: Plan: - continue bowel regimen (5) Seizure disorder: Plan: - continue home AEDs (6) Hepatitis B carrier: Plan: - noted (7) Hypothyroidism: Plan: - continue levothyroxine (8) CKD (chronic kidney disease): Plan: - Cr near baseline of 1-1.3 - Continue TF and free water flushes -Stable Plan DVT Ppx: SQ heparin Code status: FULL - relocation services specialist Mr [place]en[place] during daylight hours at [phone]. PCP: Douglas Dispo: med/surg - pending placement to rehab Admission and Anticipated Discharge Date Admission Date: May 25, 2022 Subjective Follow-up for pneumonia, etc. Seen resting in bed, sleeping but easily awakened Returns to examiner when name is called Not in distress, calm No coughing, respiratory issues per RN Tolerating tube feeding well No other symptoms or issues noted Review of Systems Review of Systems: all noted and negative except for above Physical Exam Physical Exam: General- not in distress, breathing with no effort or accessory muscle use Eyes- anicteric Neck- no JVD Lungs- clear breath sounds bilaterally, no rales/wheezes Heart- normal rate, regular rhythm; no murmurs Abdomen- normal bowel sounds, nondistended, soft, nontender Extremities- no pretibial edema, no calf tenderness Neuro- alert, no new gross focal neurologic deficits Skin- warm & dry Results & Data Results & Data ([facility]) Vital Signs (Past 12 Hours) Vital Signs Temp Pulse Resp BP Pulse Ox O2 Del Method 06/09/22 14:56 36.8 C 70 20 98/67 L 93 06/09/22 10:35 36.4 C L 73 18 92/57 L 93 Room Air 06/09/22 08:00 Room Air 06/09/22 07:56 36.2 C L 62 20 96/64 L 94 Room Air all noted and reviewed including below
[2022-06-09] MEDS: DOCUSATE SODIUM/SENNA 50/8.6MG TAB PO SCH (20:36)
[2022-06-09] MEDS: lamoTRIgine 100 MG TAB PO SCH (20:36)
[2022-06-09] MEDS: BACITRACIN OPL SCH (20:37)
[2022-06-09] MEDS: [UNRECOGNIZED DRUG - OTHER] OPL SCH (20:37)
[2022-06-09] MEDS: OLANZapine ZYDIS 5 MG ORALLY DIS. TAB PO SCH (20:37)
[2022-06-10] MEDS: FIBERSOURCE HN 1.2 CAL 1000 ML BAG GT SCH ×2 (01:52→20:45)
[2022-06-10] MEDS: CICLOPIROX~ORDER AWAITING ACTION SCH ×4 (01:52→23:54)
[2022-06-10] MEDS: TUBE FEEDING WATER FLUSH GT SCH ×7 (01:52→23:54)
[2022-06-10] MEDS: HEPARIN SOD 5,000 UNIT/0.5 ML VIAL SQ SCH ×3 (05:44→20:53)
[2022-06-10] MEDS: LEVOTHYROXINE SODIUM 75 MCG TABLET GT SCH (05:44)
[2022-06-10] MEDS: bisacodyL 10 MG SUPP PR SCH (08:05)
[2022-06-10] MEDS: LACTOBACILLUS ACIDOPHILUS 1 GM PACK PEG SCH ×2 (09:13→20:50)
[2022-06-10] MEDS: lamoTRIgine 25 MG TAB PO SCH (09:13)
[2022-06-10] MEDS: LORATADINE 1 MG/1 ML GT SCH (09:13)
[2022-06-10] MEDS: PSYLLIUM or GUAR GUM FIBER POWDER PACKET PO SCH ×2 (09:14→20:53)
[2022-06-10] MEDS: ESCITALOPRAM OXALATE 10 MG TAB PO SCH (09:14)
[2022-06-10] MEDS: CHOLECALCIFEROL 1,000 UNITS 25 MCG TAB GT SCH (09:14)
[2022-06-10] MEDS: ENTECAVIR 0.05 MG/ML PEG SCH (09:15)
[2022-06-10] MEDS: POLYETHYLENE (MIRALAX) 17 GM PACK PEG SCH (09:17)
[2022-06-10] MEDS: FAMOTIDINE 20 MG TAB JT SCH ×2 (09:17→20:50)
--- NOTE | 2022-06-10 15:57 | Hospitalist Progress Note ---
Date of Service June 10, 2022 Assessment & Plan (1) Pneumonia: Plan: - Bilateral pneumonia, secondary to Pseudomonas - sputum culture growing pseudomonas likely causing his pneumonia - weaned off of oxygen, now on RA - s/p 7 days of doxycycline and cefepime - Resolved -Awaiting acceptance to rehab (2) Down syndrome: Plan: - noted (3) Dysphagia: Plan: - PEG in place -Tolerating tube feedings (4) Constipation: Plan: - continue bowel regimen (5) Seizure disorder: Plan: - continue home AEDs (6) Hepatitis B carrier: Plan: - noted (7) Hypothyroidism: Plan: - continue levothyroxine (8) CKD (chronic kidney disease): Plan: - Cr near baseline of 1-1.3 - Continue TF and free water flushes -Stable Plan DVT Ppx: SQ heparin Code status: FULL - mental health specialist Ms Monten[place]ro during daylight hours at [phone]. PCP: Douglas Dispo: med/surg - pending placement to rehab Admission and Anticipated Discharge Date Admission Date: May 25, 2022 Supervising Physician Co-Signing Physician Notes delayed entry date of service noted above Attending Addendum: care coordinated with GEOVANNA Pinto please refer to her notes for full details, I agree with her notes patient seen and examined, records reviewed by myself as well Pete Herrera MD Subjective Seen in - in follow-up for pneumonia, etc. Resting comfortably. Awake, jyothi ng eye contact and responds to name. Minimally verbal at baseline. ROS unobtainable due to ID. Review of Systems Review of Systems: ROS unobtainable due to intellectual disability and essentially non-verbal at baseline Physical Exam Physical Exam: Gen: WD/WN, NAD, lying in bed comfortably, not in distress HEENT: Normocephalic, atraumatic, conjunctivae moist, sclerae anicteric, mucous membranes moist Lung: Clear to Auscultation bilaterally, no wheezes/rales Heart: Regular rate, regular rhythm, no murmurs, rubs, or gallops Abdomen: Soft, NT, ND +BS x 4 Neuro: Alert, no new gross focal neurologic deficits Extremities: no edema Skin: Warm, no rash Results & Data Results & Data ([facility]) Vital Signs (Past 12 Hours) Vital Signs Temp Pulse Resp BP BP Pulse Ox O2 Del Method 06/10/22 15:01 36.7 C 70 16 94/58 L 95 Room Air 06/10/22 07:54 Room Air 06/10/22 07:15 37 C 74 16 120/76 93 Room Air
[2022-06-10] MEDS: BACITRACIN OPL SCH (20:49)
[2022-06-10] MEDS: [UNRECOGNIZED DRUG - OTHER] OPL SCH (20:49)
[2022-06-10] MEDS: OLANZapine ZYDIS 5 MG ORALLY DIS. TAB PO SCH (20:51)
[2022-06-10] MEDS: lamoTRIgine 100 MG TAB PO SCH (20:51)
[2022-06-10] MEDS: DOCUSATE SODIUM/SENNA 50/8.6MG TAB PO SCH (20:58)
[2022-06-11] MEDS: TUBE FEEDING WATER FLUSH GT SCH ×7 (04:21→23:12)
[2022-06-11] MEDS: HEPARIN SOD 5,000 UNIT/0.5 ML VIAL SQ SCH ×3 (06:08→21:45)
[2022-06-11] MEDS: LEVOTHYROXINE SODIUM 75 MCG TABLET GT SCH (06:08)
[2022-06-11] MEDS: lamoTRIgine 25 MG TAB PO SCH (09:47)
[2022-06-11] MEDS: FAMOTIDINE 20 MG TAB JT SCH ×2 (09:47→19:51)
[2022-06-11] MEDS: ESCITALOPRAM OXALATE 10 MG TAB PO SCH (09:47)
[2022-06-11] MEDS: CHOLECALCIFEROL 1,000 UNITS 25 MCG TAB GT SCH (09:54)
[2022-06-11] MEDS: LACTOBACILLUS ACIDOPHILUS 1 GM PACK PEG SCH ×2 (09:54→19:52)
[2022-06-11] MEDS: ENTECAVIR 0.05 MG/ML PEG SCH (09:56)
[2022-06-11] MEDS: LORATADINE 1 MG/1 ML GT SCH (09:58)
[2022-06-11] MEDS: POLYETHYLENE (MIRALAX) 17 GM PACK PEG SCH (09:58)
[2022-06-11] MEDS: PSYLLIUM or GUAR GUM FIBER POWDER PACKET PO SCH ×2 (09:58→19:52)
[2022-06-11] MEDS: bisacodyL 10 MG SUPP PR SCH (11:18)
[2022-06-11] MEDS: CICLOPIROX~ORDER AWAITING ACTION SCH (11:51)
--- NOTE | 2022-06-11 14:30 | Hospitalist Progress Note ---
Date of Service June 11, 2022 Assessment & Plan (1) Pneumonia: Plan: - Bilateral pneumonia, secondary to Pseudomonas - sputum culture growing pseudomonas likely causing his pneumonia - weaned off of oxygen, now on RA - s/p 7 days of doxycycline and cefepime - Resolved -Awaiting acceptance to rehab (2) Down syndrome: Plan: - noted (3) Dysphagia: Plan: - PEG in place -Tolerating tube feedings (4) Constipation: Plan: - continue bowel regimen - last bowel movement was today, 06/11/22 per RN (5) Seizure disorder: Plan: - continue home AEDs (6) Hepatitis B carrier: Plan: - noted (7) Hypothyroidism: Plan: - continue levothyroxine (8) CKD (chronic kidney disease): Plan: - Cr near baseline of 1-1.3 - Continue TF and free water flushes -Stable Plan DVT Ppx: SQ heparin Code status: FULL - e marketing specialist Ms [place]en[place] during daylight hours at [phone]. PCP: Pilgram Dispo: med/surg - pending placement to rehab Admission and Anticipated Discharge Date Admission Date: May 25, 2022 Supervising Physician Co-Signing Physician Notes delayed entry date of service noted above Attending Addendum: care coordinated with GEOVANNA Pinto please refer to her notes for full details, I agree with her notes patient seen and examined, records reviewed by myself as well Pete Herrera MD Subjective Seen in 356-1 in follow-up for pneumonia, etc. Resting comfortably. Awake, making eye contact and responds to name. Minimally verbal at baseline. Appears comfortable. Last bowel movement per RN earlier today. ROS unobtainable due to ID. Review of Systems Review of Systems: ROS unobtainable due to intellectual disability and essentially non-verbal at baseline Physical Exam Physical Exam: Gen: WD/WN, NAD, lying in bed comfortably, not in distress HEENT: Normocephalic, atraumatic, conjunctivae moist, sclerae anicteric, mucous membranes moist Lung: Clear to Auscultation bilaterally, no wheezes/rales Heart: Regular rate, regular rhythm, no murmurs, rubs, or gallops Abdomen: Soft, NT, ND +BS x 4 Neuro: Alert, no new gross focal neurologic deficits Extremities: no edema Skin: Warm, no rash Results & Data Results & Data ([facility]) Vital Signs (Past 12 Hours) Vital Signs Temp Pulse Resp BP Pulse Ox O2 Del Method 06/11/22 07:30 Room Air 06/11/22 07:56 36.5 C 06/11/22 07:52 74 17 132/78 94 Room Air
[2022-06-11] MEDS: [UNRECOGNIZED DRUG - OTHER] OPL SCH (19:50)
[2022-06-11] MEDS: BACITRACIN OPL SCH (19:50)
[2022-06-11] MEDS: lamoTRIgine 100 MG TAB PO SCH (19:50)
[2022-06-11] MEDS: DOCUSATE SODIUM/SENNA 50/8.6MG TAB PO SCH (19:51)
[2022-06-11] MEDS: OLANZapine ZYDIS 5 MG ORALLY DIS. TAB PO SCH (19:52)
[2022-06-12] MEDS: TUBE FEEDING WATER FLUSH GT SCH ×3 (03:09→12:54)
[2022-06-12] MEDS: HEPARIN SOD 5,000 UNIT/0.5 ML VIAL SQ SCH (06:17)
[2022-06-12] MEDS: LEVOTHYROXINE SODIUM 75 MCG TABLET GT SCH (06:17)
[2022-06-12] MEDS: CHOLECALCIFEROL 1,000 UNITS 25 MCG TAB GT SCH (09:42)
[2022-06-12] MEDS: bisacodyL 10 MG SUPP PR SCH (09:42)
[2022-06-12] MEDS: ESCITALOPRAM OXALATE 10 MG TAB PO SCH (09:42)
[2022-06-12] MEDS: ENTECAVIR 0.05 MG/ML PEG SCH (09:43)
[2022-06-12] MEDS: PSYLLIUM or GUAR GUM FIBER POWDER PACKET PO SCH (09:44)
[2022-06-12] MEDS: LORATADINE 1 MG/1 ML GT SCH (09:44)
[2022-06-12] MEDS: lamoTRIgine 25 MG TAB PO SCH (09:44)
[2022-06-12] MEDS: LACTOBACILLUS ACIDOPHILUS 1 GM PACK PEG SCH (09:44)
[2022-06-12] MEDS: POLYETHYLENE (MIRALAX) 17 GM PACK PEG SCH (09:44)
[2022-06-12] MEDS: FAMOTIDINE 20 MG TAB JT SCH (09:44)
[2022-06-12] MEDS: FIBERSOURCE HN 1.2 CAL 1000 ML BAG GT SCH (10:33)
--- NOTE | 2022-06-12 11:46 | Hospitalist Progress Note ---
Date of Service June 12, 2022 Assessment & Plan (1) Pneumonia: Plan: - Bilateral pneumonia, secondary to Pseudomonas - sputum culture growing pseudomonas - weaned off of oxygen, has been doing well on room air - s/p 7 days of doxycycline and cefepime - Resolved -Accepted to [facility] (2) Down syndrome: Plan: - noted (3) Dysphagia: Plan: - PEG in place -Tolerating tube feedings Currently on FiberSource HN At 60 cc/h Continuous tube feeding Free water flushes 150 cc every 4 hours Strict aspiration precautions Head of the bed elevation 30 to 45 degrees Daily PEG tube site care (4) Constipation: Plan: - continue bowel regimen -Patient high risk for constipation -Continue MiraLAX daily, Metamucil twice daily -Monitor closely (5) Seizure disorder: Plan: - continue home AEDs (6) Hepatitis B carrier: Plan: Continue daily iEntecavir 0.5 mg daily (7) Hypothyroidism: Plan: - continue levothyroxine (8) CKD (chronic kidney disease): Plan: - Cr near baseline of 1-1.3 - Continue TF and free water flushes -Stable Plan DVT Ppx: SQ heparin every 8 hours Code status: FULL - media specialist Ms [place]en[place] during daylight hours at [phone]. PCP: Douglas Dispo: [facility] to [facility] Admission and Anticipated Discharge Date Admission Date: May 25, 2022 Subjective Follow-up for bilateral pneumonia, Pseudomonas, etc. Seen resting in bed, comfortably sleeping but easily awakened Tries to say hi, follows command to hold examiner's fingers No signs of distress, pain Review of Systems Review of Systems: all noted and negative except for above Physical Exam Physical Exam: General-not oriented, but awake and alert, nonverbal, not in distress, breathing with no effort or accessory muscle use Eyes- anicteric Neck- no JVD Lungs- clear breath sounds bilaterally, no crackles or wheezing noted Heart- normal rate, regular rhythm; no murmurs Abdomen- normal bowel sounds, nondistended, soft, nontender PEG tube in place Extremities- no pretibial edema, no calf tenderness Neuro-awake and alert, nonverbal, no new signs of focal neurologic deficits Skin- warm & dry Results & Data Results & Data ([facility]) Vital Signs (Past 12 Hours) Vital Signs Temp Pulse Resp BP Pulse Ox O2 Del Method 06/12/22 08:00 36.6 C 74 18 88/63 L 95 Room Air all noted and reviewed including below
--- NOTE | 2022-06-12 12:09 | Discharge Summary ---
Discharge Summary Date of Service June 12, 2022 Notes For Next Care Provider Strict NPO. Strict aspiration precautions please. Monitor closely for constipation daily. Please refer to notes below for further details. Thank you. Medication Changes From Visit Tube feeding changed to FiberSource HN, free water flushes increased 150 cc every 4 hours Heparin subcutaneous for DVT prophylaxis every 8 hours Probiotics twice daily x2 weeks Admission HPI Per Admitting Provider This is a 63-year-old male with PMH of intellectual disability secondary to Down syndrome, hypothyroidism, severe dysphagia, hep B carrier, leukopenia and schizophrenia who presents with shortness of breath and hypoxia from clinic. Patient resides at [facility] and is minimally verbal at baseline. Has history of recurrent aspiration pneumonia and is a strict n.p.o. with a PEG tube in place. Has had pneumonia for the last month and a half with multiple outpatient regimens without improvement of symptoms. Seen by primary care yesterday and started on azithromycin. Has also been requiring 3 people to assist with transfers, which is more significant than baseline. In clinic yesterday, oxygen saturations were noted to be in the low 80s. EMS was called and patient was placed on a nonrebreather and brought to the ED for further evaluation. Patient has cough and is more agitated than baseline, per caregiver at bedside. Patient is a full code, per facility but no formal documentation provided in binder at bedside. Unable to obtain ROS due to patient's cognitive status. Admission Exam Per Admitting Provider In moderate respiratory distress, oxymask in place Heart: Normal S1/S2, possible systolic murmur Lungs: Pectus excavatum, fair air entry b/l but b/l diffuse rales Abd: distended, NT and soft MSK: no LE edema Psych: only spoke 2 words but follows command Principal Dx & Hospital Course #1 = Principal Diagnosis (1) Pneumonia: Acute hypoxic respiratory failure - Bilateral pneumonia, secondary to Pseudomonas - sputum culture growing Pseudomonas - s/p 7 days of doxycycline and cefepime - weaned off of oxygen, has been doing well on room air -Accepted to [facility] (2) Down syndrome: - noted (3) Dysphagia: - PEG tube in place - Tolerating tube feedings Currently on FiberSource HN At 60 cc/hr Continuous tube feeding Free water flushes 150 cc every 4 hours Strict aspiration precautions Head of the bed elevation 30 to 45 degrees Daily PEG tube site care (4) Constipation: - continue bowel regimen -Patient high risk for constipation -Continue MiraLAX daily, Metamucil twice, Senokot S daily -Monitor closely (5) Seizure disorder: - continue lamotrigine Also on escitalopram, olanzapine (6) Hepatitis B carrier: Continue daily Entecavir 0.5 mg daily (7) Hypothyroidism: - continue levothyroxine (8) CKD (chronic kidney disease): - Cr near baseline of 1-1.3 - Continue TF and free water flushes -Stable Plan DVT Ppx: SQ heparin every 8 hours Code status: FULL - community health specialist Ms [place] during daylight hours at [phone]. PCP: Douglas Dispo: Transition to [facility] Discharge Exam General-not oriented, but awake and alert, nonverbal, not in distress, breathing with no effort or accessory muscle use Eyes- anicteric Neck- no JVD Lungs- clear breath sounds bilaterally, no crackles or wheezing noted Heart- normal rate, regular rhythm; no murmurs Abdomen- normal bowel sounds, nondistended, soft, nontender PEG tube in place Extremities- no pretibial edema, no calf tenderness Neuro-awake and alert, nonverbal, no new signs of focal neurologic deficits Skin- warm & dry Updated Medication List Medication Instructions Recorded Confirmed Type cholecalciferol (vitamin D3) 25 1,000 unit feeding tube QAM 05/31/18 05/25/22 History mcg (1,000 unit) tablet (Vitamin D3) ciclopirox 0.77 % topical cream 1 applic topical DAILY 05/31/18 05/25/22 History escitalopram oxalate 10 mg tablet 10 mg feeding tube QAM 05/31/18 05/25/22 History lamotrigine 150 mg tablet 150 mg feeding tube HS 05/31/18 05/25/22 History lamotrigine 25 mg tablet 50 mg feeding tube QAM 05/31/18 05/25/22 History levothyroxine 75 mcg capsule 75 mcg feeding tube QAM 05/31/18 05/25/22 History loratadine 10 mg capsule 10 mg feeding tube QAM 05/31/18 05/25/22 History olanzapine 5 mg tablet 5 mg feeding tube HS 05/31/18 05/25/22 History nutritional supplements 0.06 1 can feeding tube 5XD 11/22/18 05/25/22 History gram-1.2 kcal/mL oral liquid (Osmolite 1.2 Jamie) Calazime 1 applic topical DIRECTED PRN 05/25/22 05/25/22 History PREVENT SORES ON BUTTOCKS acetaminophen 500 mg/15 mL oral 1,000 mg feeding tube Q6H PRN 05/25/22 05/25/22 History liquid PAIN/FEVER albuterol sulfate 2.5 mg/3 mL 2.5 mg inhalation Q6H PRN ASTHMA 05/25/22 05/25/22 History (0.083 %) solution for nebulization albuterol sulfate 90 mcg/actuation 2 puff inhalation Q6H PRN PRIOR TO 05/25/22 05/25/22 History aerosol inhaler EXERCISE/SHORTNESS OF BREATH azithromycin 200 mg/5 mL oral 400 mg feeding tube DAILY 05/25/22 05/25/22 History suspension bisacodyl 10 mg rectal suppository 10 mg NM DAILY PRN Q4 DAYS IF MOM 05/25/22 05/25/22 History NO RESULTS. dextromethorphan-guaifenesin 10 10 ml feeding tube Q4H PRN Cough 05/25/22 05/25/22 History mg-100 mg/5 mL oral liquid (Tussin DM) entecavir 0.05 mg/mL oral solution 10 ml feeding tube DAILY 05/25/22 05/25/22 History (Baraclude) famotidine 20 mg tablet 20 mg feeding tube BID 05/25/22 05/25/22 History gentamicin 0.3 % eye drops 1 drp OPB Q4H PRN REDNESS 05/25/22 05/25/22 History magnesium hydroxide 400 mg/5 mL 30 ml feeding tube DAILY PRN 05/25/22 05/25/22 History oral suspension (Milk of Magnesia) Constipation mupirocin 2 % topical ointment 1 applic topical TID PRN 05/25/22 05/25/22 History Inflammation polyethylene glycol 3350 17 gram 17 g feeding tube DAILY 05/25/22 05/25/22 History oral powder packet polyethylene glycol 3350 17 17 g feeding tube DAILY PRN 05/25/22 05/25/22 History gram/dose oral powder (Miralax) Constipation psyllium 1 tsp feeding tube BID 05/25/22 05/25/22 History sennosides 8.6 mg-docusate sodium 2 tab-cap HS 05/25/22 05/25/22 History 50 mg tablet (Senna-S) water 1 ea TID 05/25/22 05/25/22 History Lactobacillus acidophilus, 1 packet PEG BID 14 days #12 ea 06/12/22 Rx bulgaricus 100 million cell granules packet (Floranex) Tube Feeding Water Flush 150 ml G-tube Q4 #1,000 mL 06/12/22 Rx bacitracin-polymyxin B 500 1 applic OPL HS #3.5 grams 06/12/22 Rx unit-10,000 unit/gram eye ointment (Polycin) heparin, porcine (PF) 5,000 5,000 unit (0.5 mL) subcut Q8 14 06/12/22 Rx unit/0.5 mL injection syringe days #21 mL nutrition [id number]-[id number]-fiber 1 ea feeding tube .continuous 06/12/22 Rx 0.05 gram-1.2 kcal/mL tube feed #6,000 mL liquid (Fibersource HN) Hospital Stay Data Consultations 05/25/22 16:44 ED Decision to Admit Stat Pending Results Patient Have Any Pending Studies at Discharge: No Discharge Instructions Given to Patient (Per Discharging Provider) Please refer to accompanying hospital discharge summary for further details. Tube feeding regimen: FiberSource HN 60 cc/h, continuous feeding Free water flushes 150 cc every 4 hours Head of the bed elevation 30 to 45 degrees Strict aspiration precautions Total Time Total Time Spent Total Time Spent (In Minutes): >30 minutes
== END 2022-06-12 15:15 | DRG 177 ==
LOC: ED 13:47 → 2S 17:41 → SUATTDRO 17:41 → 2S 18:29 → 3W 06-02 13:37